=== PATIENT | male | born 1980 | race Caucasian/White ===

== ENCOUNTER 2020-08-11 14:37 | Emergency (ER) | payer OTHER, BC ==
[2020-08-11 14:41] VITALS: RESP 20; TEMP 97.9
[2020-08-11] MEDS ORDERED: Acetaminophen-Codeine 300-30mg TAB PO STA (15:05)
[2020-08-11] MEDS ORDERED: MORPHINE SULFATE 4 MG/ML SYRINGE IM STA (15:05)
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
[2020-08-11] MEDS ORDERED: ACET/COD 300 MG/30 MG STARTER PACK 6 TAB BTL PO STA (16:36)
[2020-08-11 16:58] VITALS: BP 124/88; PULSE 94
== END 2020-08-11 16:57 | disposition home or self-care (01) ==
LOC: EC 14:37
DX: S16.1XXA Strain of muscle, fascia and tendon at neck level, initial encounter (principal); S69.91XA Unspecified injury of right wrist, hand and finger(s), initial encounter; F17.200 Nicotine dependence, unspecified, uncomplicated; M25.531 Pain in right wrist; M25.561 Pain in right knee; V89.2XXA Person injured in unspecified motor-vehicle accident, traffic, initial encounter; Y92.410 Unspecified street and highway as the place of occurrence of the external cause; Y93.I9 Activity, other involving external motion
CPT/HCPCS: 70450; 72125; 99284

== ENCOUNTER 2021-09-05 15:32 | Emergency (ER) | payer OTHER ==
[2021-09-05] MEDS ORDERED: MORPHINE SULFATE 2 MG/ML SYRINGE IM STA (18:09)
[2021-09-05] MEDS ORDERED: methylPREDNISolone SOD SUCCI 125 MG/2 ML VIAL IM ONE (18:09)
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
--- NOTE | 2021-09-05 18:57 | XR ---
EXAMINATION TYPE: XR lumbar spine 2 or 3V DATE OF EXAM: 09/05/2021 COMPARISON: NONE HISTORY: Back pain TECHNIQUE: 3 views FINDINGS: The lumbar vertebrae have normal alignment. Posterior elements are intact. No compression f racture. Sacroiliac joints appear intact. IMPRESSION: Negative lumbar spine exam. No fracture seen.
[2021-09-05] MEDS ORDERED: ACET/COD 300 MG/30 MG STARTER PACK 6 TAB BTL PO STA (19:32)
[2021-09-05 19:47] VITALS: BP 132/78; PULSE 78; RESP 16; TEMP 97.9
== END 2021-09-05 19:44 | disposition home or self-care (01) ==
LOC: EC 15:32
DX: M54.50 Low back pain, unspecified (principal)
CPT/HCPCS: 72100; J2930; J2270

== ENCOUNTER 2021-09-09 15:16 | Emergency (ER) | payer OTHER ==
[2021-09-09 15:31] VITALS: RESP 18; TEMP 98
[2021-09-09] MEDS ORDERED: KETAMINE 10 MG/ML 20 ML VIAL IV ONE (15:55)
[2021-09-09] MEDS ORDERED: SODIUM CHLORIDE 0.9% 1,000 ML IV STA (15:56)
[2021-09-09] MEDS ORDERED: MORPHINE SULFATE 4 MG/ML SYRINGE IM STA (15:59)
--- NOTE | 2021-09-09 15:59 | ED ---
General Adult HPI - General Chief complaint: Back Pain/Injury Stated complaint: Back pain Time Seen by Provider: 09/09/21 15:41 Source: patient Mode of arrival: ambulatory Limitations: no limitations - History of Present Illness Initial comments: Dictation was produced using [employer] dictation software. please excuse any grammatical, word or spelling errors. Chief Complaint: 40-year-old male presents to the emergency department History of Present Illness: 40-year-old male presents emergency department for acute on chronic back pain. Patient states that his symptoms began several days ago. He was seen in the emergency department 4 days ago for the same complaint. Patient states she's been dealing with back issues for several years. States that he feels like he has a knot in his left lower back. States that he feels like there is radiation of paresthesias down the lateral portion of his left lower extremity. He has seen a airborne and air delivery specialist in the past and has had MRIs that showed disc bulge. He does not have a primary care doctor at the moment. Denies any saddle anesthesia or bowel or bladder issues. The ROS documented in this emergency department record has been reviewed and confirmed by me. Those systems with pertinent positive or negative responses have been documented in the HPI. All other systems are other negative and/or noncontributory. PHYSICAL EXAM: General Impression: Alert and oriented x3, not in acute distress HEENT: Normocephalic atraumatic, extra-ocular movements intact, pupils equal and reactive to light bilaterally, mucous membranes moist. Cardiovascular: Heart regular rate and rhythm Chest: Able to complete full sentences, no retractions, no tachypnea Abdomen: abdomen soft, non-tender, non-distended, no organomegaly Musculoskeletal: Pulses present and equal in all extremities, no peripheral edema, bogginess to the soft tissues of the left lower back with reproducible palpatory tenderness Motor: no focal deficits noted Neurological: CN II-XII grossly intact, no focal motor or sensory deficits noted Skin: Intact with no visualized rashes Psych: Normal affect and mood ED course: 40-year-old male presents to the emergency department for acute on chronic back pain. Patient was seen here in emergency department 4 days ago for the same complaint. Vital signs upon arrival are within acceptable limits. Patient has no high-risk features. CT imaging shows no acute processes. Patient is well-appearing at bedside. Patient is a high-risk features. Patient be discharged. - Related Data Home Medications Medication Instructions Recorded Confirmed Acetaminophen Tab [Tylenol Tab] 1,000 mg PO Q6HR PRN 08/11/20 08/11/20 Ibuprofen [Motrin Ib] 800 mg PO Q8H PRN 08/11/20 08/11/20 Previous Rx's Medication Instructions Recorded HYDROcodone/APAP 5-325MG [[place] 1 tab PO Q4HR PRN 3 Days #18 tab 09/05/21 5-325] oxyCODONE HCL/ACETAMINOPHEN 1 tab PO Q6HR PRN 3 Days #12 tab 09/09/21 [Percocet 5-325 mg] Allergies Allergy/AdvReac Type Severity Reaction Status Date / Time Penicillins Allergy Unknown Verified 09/05/21 16:18 Review of Systems ROS Statement: Those systems with pertinent positive or pertinent negative responses have been documented in the HPI. ROS Other: All systems not noted in ROS Statement are negative. Past Medical History Past Medical History: No Reported History History of Any Multi-Drug Resistant Organisms: None Reported Past Surgical History: Orthopedic Surgery Additional Past Surgical History / Comment(s): rt knee Past Psychological History: Anxiety Smoking Status: Current every day smoker Past Alcohol Use History: Rare Past Drug Use History: None Reported General Exam Limitations: no limitations Course Vital Signs 09/09/21 15:29 Temperature 98.0 F Pulse Rate 88 Respiratory 18 Rate Blood Pressure 162/88 O2 Sat by Pulse 98 Oximetry Disposition Clinical Impression: Back pain Disposition: HOME SELF-CARE Condition: Good Instructions (If sedation given, give patient instructions): Acute Low Back Pain (ED) Prescriptions: oxyCODONE HCL/ACETAMINOPHEN [Percocet 5-325 mg] 1 tab PO Q6HR PRN 3 Days #12 tab PRN Reason: Pain Is patient prescribed a controlled substance at d/c from ED?: No Referrals: Rafael Gay DO [Doctor of Osteopathic Medicine] - 1-2 days Jennifer Reyes MD [REFERRING] - 1-2 days Sammy Young MD [REFERRING] - 1-2 days Cody Coleman DO [Doctor of Osteopathic Medicine] - 1-2 days
--- NOTE | 2021-09-09 17:18 | CT ---
EXAMINATION TYPE: CT lumbar spine wo con CT DLP: 1120.6 mGycm, Automated exposure control for dose reduction was used. DATE OF EXAM: 09/09/2021 5:06 PM COMPARISON: Lumbar radiographs 09/05/2021. CLINICAL INDICATION:Male, 40 years old with history of persistent back pain, Chronic low back pain, n o injury. TECHNIQUE: Multiple axial images were obtained from the midportion of T11 through the sacroiliac kvng nts. Soft tissue and bone windows in coronal and sagittal planes were obtained and reviewed. 3-D ref ormats of the bones were created on a separate workstation and submitted for review. FINDINGS: Alignment: There are 5 lumbar type vertebral bodies within normal alignment. Bone: No evidence of fracture is identified. Mild multilevel disc degeneration changes are seen thro ughout the spine. Mild sacroiliac joint osteophyte formation anteriorly. Discs: T12-L1: No spinal canal or neural foraminal stenosis is identified. L1-L2: No spinal canal or neural foraminal stenosis is identified. L2-L3: No spinal canal or neural foraminal stenosis is identified. L3-L4: No spinal canal or neural foraminal stenosis is identified. L4-L5: No spinal canal or neural foraminal stenosis is identified. L5-S1: No spinal canal or neural foraminal stenosis is identified. Other: Nonobstructing subcentimeter renal calculi bilaterally. The appendix is within normal limits. IMPRESSION: 1. No evidence of fracture of the lumbar spine. 2. No evidence for significant spinal canal or neural foraminal narrowing.
[2021-09-09 18:17] VITALS: BP 145/90; PULSE 83
== END 2021-09-09 18:17 | disposition home or self-care (01) ==
LOC: EC 15:16
DX: M54.9 Dorsalgia, unspecified (principal); F17.200 Nicotine dependence, unspecified, uncomplicated; Z88.0 Allergy status to penicillin
CPT/HCPCS: 72131; 99283; 96372; J2270

== ENCOUNTER 2021-09-30 18:20 | Emergency (ER) | payer OTHER ==
[2021-09-30 20:11] VITALS: BP 142/99; PULSE 85; RESP 17; TEMP 98.1
[2021-09-30] MEDS ORDERED: GABAPENTIN 300 MG CAP PO STA (22:02)
--- NOTE | 2021-09-30 22:08 | ED ---
General Adult HPI - General Chief complaint: Back Pain/Injury Stated complaint: Low Back Pain Time Seen by Provider: 09/30/21 21:41 Source: patient, RN notes reviewed, old records reviewed Mode of arrival: ambulatory Limitations: no limitations - History of Present Illness Initial comments: Patient is a 40-year-old male with past medical history remarkable for chronic back pain who presents emergency Department complaining of exacerbation of his chronic back pain. Previously was being treated in a pain clinic. This is stopped, and he was seen previously here for similar complaints. No new symptoms for describes the pain as a shooting sensation from his lower back down bilateral legs, left worse than right. Denies any incontinence. Denies saddle anesthesias. Denies abdominal pain, nausea, vomiting. Denies chest pain, shortness breath. Denies any new injuries. His no other acute complaint at this time. Was started on amitriptyline for the pain without much improvement. He is seeking more relief. Has not yet followed up with account installation specialist. Has not returned to his PCP. - Related Data Home Medications Medication Instructions Recorded Confirmed Acetaminophen Tab [Tylenol Tab] 1,000 mg PO Q6HR PRN 08/11/20 08/11/20 Ibuprofen [Motrin Ib] 800 mg PO Q8H PRN 08/11/20 08/11/20 Previous Rx's Medication Instructions Recorded HYDROcodone/APAP 5-325MG [[place] 1 tab PO Q4HR PRN 3 Days #18 tab 09/05/21 5-325] oxyCODONE HCL/ACETAMINOPHEN 1 tab PO Q6HR PRN 3 Days #12 tab 09/09/21 [Percocet 5-325 mg] Gabapentin [Neurontin] 300 mg PO TID 3 Days #9 cap 09/30/21 Allergies Allergy/AdvReac Type Severity Reaction Status Date / Time Penicillins Allergy Unknown Verified 09/30/21 20:08 Review of Systems ROS Statement: Those systems with pertinent positive or pertinent negative responses have been documented in the HPI. Review of Systems: CONST: Denies fever EYES: Denies blurry vision ENT: Denies nasal congestion C/V: Denies Chest pain RESP: Denies shortness of breath GI: Denies abdominal pain : Denies dysuria SKIN: Denies rash. MSK: Endorses chronic back pain. NEURO: Denies headache ROS Other: All systems not noted in ROS Statement are negative. Past Medical History Past Medical History: No Reported History Additional Past Medical History / Comment(s): back pain History of Any Multi-Drug Resistant Organisms: None Reported Past Surgical History: Orthopedic Surgery Additional Past Surgical History / Comment(s): rt knee Past Psychological History: Anxiety Smoking Status: Current every day smoker Past Alcohol Use History: Rare Past Drug Use History: None Reported General Exam - General Exam Comments Initial Comments: General: Appears in no acute distress. HEAD: Normal with no signs of head trauma. EYES: EOMI ENT: Hearing grossly intact RESPIRATORY: No respiratory distress C/V: Regular rate and rhythm. Peripheral pulses 2+ and intact throughout. ABD: Abdomen is nondistended. EXT: Normal range of motion of all 4 extremities without any obvious deformity. No obvious midline lumbar spine tenderness to palpation. SKIN: No rashes or lesions observed on exposed skin. NEURO: Alert and oriented 4. Patient is able to ambulate. No focal deficits. Limitations: no limitations Course Vital Signs 09/30/21 20:08 Temperature 98.1 F Pulse Rate 85 Respiratory 17 Rate Blood Pressure 142/99 O2 Sat by Pulse 100 Oximetry Medical Decision Making - Medical Decision Making Based on the patient's presentation and physical exam, I'm concerned for his chronic back pain. His no new symptoms. Has not followed up yet with specialist for further management her medications. Is requesting new medications. I did discuss with him I am willing to provide him with a three- day prescription for medications, we agreed on Neurontin. I do not believe that we need any new imaging or laboratory studies. Lumbar spine CT earlier this month showed no acute findings. Patient was in agreement with follow-up. I will provide him with new to contact him for information for a account installation specialist as well as PCP. He was in agreement this plan. He has no red flag symptoms to suggest cauda equina syndrome. Likely experiencing sciatica. I will provide the patient with a prescription for three-day prescription of gabapentin. I instructed the patient to follow up with their PCP in the next 3 days. . I explained that the patient should return to the emergency department if they experience any worsening symptoms. Strict return precautions were discussed with the patient. The patient expressed understanding of these instructions. I answered all questions that the patient had. The patient was discharged home in good condition with their prescriptions and follow up information. Disposition Clinical Impression: Chronic back pain, Lumbar radiculopathy Disposition: HOME SELF-CARE Condition: Good Instructions (If sedation given, give patient instructions): Chronic Back Pain (DC) Prescriptions: Gabapentin [Neurontin] 300 mg PO TID 3 Days #9 cap Is patient prescribed a controlled substance at d/c from ED?: Yes When asked, does pt state using other controlled substances?: No If prescribed controlled substance>3 days was MAPS reviewed?: Prescribed <3 Days If opioid is for acute pain is fill amount 7 days or less?: Yes Referrals: None,Stated [Primary Care Provider] - 1-2 days Olya Ng MD [REFERRING] - 1-2 days Cody Coleman DO [Doctor of Osteopathic Medicine] - 1-2 days Time of Disposition: 22:05
== END 2021-09-30 22:13 | disposition home or self-care (01) ==
LOC: EC 18:20
DX: M54.16 Radiculopathy, lumbar region (principal); F17.200 Nicotine dependence, unspecified, uncomplicated; Z88.0 Allergy status to penicillin
CPT/HCPCS: 99283

== ENCOUNTER 2021-11-13 18:38 | Emergency (ER) | payer OTHER ==
[2021-11-13 18:43] VITALS: BP 126/88; PULSE 93; RESP 18; TEMP 98
--- NOTE | 2021-11-13 19:45 | ED ---
Back Pain HPI - General Chief Complaint: Back Pain/Injury Stated Complaint: Lower back pain/pain in legs Time Seen by Provider: 11/13/21 19:36 Source: patient, RN notes reviewed Limitations: no limitations - History of Present Illness Initial Comments: This is a 40-year-old male who presents in respiratory complaining of chronic low back pain with intermittent radiation to both legs. He describes a pins and needles type sensation to both legs. He denies any symptoms of saddle anesthesia. No bowel or bladder problems. No recent instrumentation. No direct trauma. No IV drug abuse. No immunosuppression. No diabetes. No headache, no fever or chills, no changes in vision or hearing, no sore throat or difficulty with speech, no neck pain, no chest pain or shortness of breath, no abdominal pain, no nausea or vomiting, no changes in urination or bowel movements, no numbness or tingling, no extremity pain, no skin rashes or lesions. Past medical, surgical, social, and family history reviewed. MD Complaint: back pain - Related Data Home Medications Medication Instructions Recorded Confirmed Acetaminophen Tab [Tylenol Tab] 1,000 mg PO Q6HR PRN 08/11/20 08/11/20 Ibuprofen [Motrin Ib] 800 mg PO Q8H PRN 08/11/20 08/11/20 Previous Rx's Medication Instructions Recorded HYDROcodone/APAP 5-325MG [[place] 1 tab PO Q4HR PRN 3 Days #18 tab 09/05/21 5-325] oxyCODONE HCL/ACETAMINOPHEN 1 tab PO Q6HR PRN 3 Days #12 tab 09/09/21 [Percocet 5-325 mg] Gabapentin [Neurontin] 300 mg PO TID 3 Days #9 cap 09/30/21 Cyclobenzaprine [Flexeril] 10 mg PO TID PRN #20 tab 11/13/21 Gabapentin [Neurontin] 300 mg PO TID #9 cap 11/13/21 Naproxen [Naprosyn] 375 mg PO Q12HR PRN #20 tablet 11/13/21 Naproxen [Naprosyn] 375 mg PO Q12HR PRN #20 tablet 11/13/21 Allergies Allergy/AdvReac Type Severity Reaction Status Date / Time Penicillins Allergy Unknown Verified 11/13/21 18:43 Review of Systems ROS Statement: Those systems with pertinent positive or pertinent negative responses have been documented in the HPI. ROS Other: All systems not noted in ROS Statement are negative. Past Medical History Past Medical History: No Reported History Additional Past Medical History / Comment(s): back pain History of Any Multi-Drug Resistant Organisms: None Reported Past Surgical History: Orthopedic Surgery Additional Past Surgical History / Comment(s): rt knee Past Psychological History: Anxiety Smoking Status: Current every day smoker Past Alcohol Use History: Rare Past Drug Use History: None Reported General Exam - General Exam Comments Initial Comments: Patient does not appear to be ill or toxic. Cranial nerves II through XII are grossly intact Limitations: no limitations General appearance: alert, in no apparent distress Head exam: Present: atraumatic, normocephalic, normal inspection Eye exam: Present: normal appearance, PERRL, EOMI. Absent: scleral icterus, conjunctival injection, periorbital swelling ENT exam: Present: normal exam, mucous membranes moist Neck exam: Present: normal inspection. Absent: tenderness, meningismus, lymphadenopathy Respiratory exam: Present: normal lung sounds bilaterally. Absent: respiratory distress, wheezes, rales, rhonchi, stridor Cardiovascular Exam: Present: regular rate, normal rhythm, normal heart sounds. Absent: systolic murmur, diastolic murmur, rubs, gallop, clicks GI/Abdominal exam: Present: soft, normal bowel sounds. Absent: distended, tenderness, guarding, rebound, rigid Extremities exam: Present: normal inspection, full ROM, normal capillary refill. Absent: tenderness, pedal edema, joint swelling, calf tenderness Back exam: Present: normal inspection, full ROM (Essentially full range of motion with some discomfort.), tenderness (Lumbar paraspinal tenderness. No erythema. No break in skin, no rash or lesion), paraspinal tenderness, other (Straight leg raise is negative bilaterally). Absent: CVA tenderness (R), CVA tenderness (L), muscle spasm, vertebral tenderness, rash noted Neurological exam: Present: alert, oriented X3, CN II-XII intact, normal gait, reflexes normal. Absent: abnormal gait, motor sensory deficit Psychiatric exam: Present: normal affect, normal mood Skin exam: Present: warm, dry, intact, normal color. Absent: rash Course Vital Signs 11/13/21 18:39 Temperature 98.0 F Pulse Rate 93 Respiratory 18 Rate Blood Pressure 126/88 O2 Sat by Pulse 100 Oximetry Medical Decision Making - Medical Decision Making -There are no red flags for concerning back pathology. Specifically: -No history of cancer, this is not a mass effect, MRI not indicated. -No anticoagulation, this is not a bleed. -No fevers, no IVDU, this is not an infectious process. -No trauma, no bony pain, x-rays are not indicated. -With a normal neuro exam, and no urinary or bowel retention or incontinence, there is no clinical sign of motor defect or cauda equina - MRI is not indicated at this point. -No pulsating abdominal mass or risk factors for AAA. -Pain is relieved with rest, which is also less concerning. -I do not believe that x-rays or emergent MRI is indicated at this time. -We will treat symptomatically and discharge home with follow up instructions. -Stretching/strengthening exercise given to patient and they will be referred to physical therapy Patient was told to return to the ER for any signs or symptoms worsen. Told to return immediately if any other problems arise. All questions answered. Treatment plan discussed. Patient in agreement Every effort has been made to ensure accuracy of this dictation. However, due to the limitations of electronic medical records and dictation devices, errors in charting still occur. [employer] Dr. Leonard Disposition Clinical Impression: Acute exacerbation of chronic low back pain Disposition: HOME SELF-CARE Condition: Stable Instructions (If sedation given, give patient instructions): Chronic Back Pain (DC) Additional Instructions: Follow-up with your regular physician as directed. Return to the ER immediately if any symptoms worsen, new symptoms arise, or any other problems develop. Prescriptions: Cyclobenzaprine [Flexeril] 10 mg PO TID PRN #20 tab PRN Reason: Spasms Gabapentin 300 mg PO TID 3 Days #9 cap Naproxen [Naprosyn] 375 mg PO Q12HR PRN #20 tablet PRN Reason: Pain Is patient prescribed a controlled substance at d/c from ED?: No [facility] - 11/15/21 Time of Disposition: 19:45
[2021-11-13 20:13] LABS: Appearance,Urine Clear (Clear); Bilirubin,Urine Negative (Negative); Blood,Urine Negative (Negative); Color,Urine Light Yellow; Glucose,Urine (UA) Negative (Negative); Ketones,Urine Negative (Negative); Leukocyte Esterase,Urine Negative (Negative); Nitrite,Urine Negative (Negative); Protein,Urine Negative (Negative); Urobilinogen,Urine <2.0 mg/dL (<2.0)
== END 2021-11-13 20:02 | disposition home or self-care (01) ==
LOC: EC 18:38
DX: G89.29 Other chronic pain (principal); M54.50 Low back pain, unspecified; F17.200 Nicotine dependence, unspecified, uncomplicated; Z88.0 Allergy status to penicillin
CPT/HCPCS: 81003; 99283

== ENCOUNTER 2022-01-03 18:08 | Emergency (ER) | payer OTHER ==
[2022-01-03 18:48] VITALS: BP 143/92; PULSE 108; RESP 18; TEMP 98.2
[2022-01-03] MEDS ORDERED: dexAMETHasone 2 MG TAB PO STA (19:42)
[2022-01-03] MEDS ORDERED: HYDROcodone/APAP 5-325MG 1 EACH TAB PO STA (19:42)
--- NOTE | 2022-01-03 20:15 | CT ---
EXAMINATION TYPE: CT cervical spine wo con DATE OF EXAM: 01/03/2022 COMPARISON: 08/11/2020 HISTORY: neck pain that radiates down the left arm CT DLP: 458.3 mGycm Automated exposure control for dose reduction was used. Images obtained from the skull base to T1 vertebra with no contrast. The cervical vertebra have normal spacing and alignment. Posterior elements are intact. Facet joints appear normal. Skull base is intact. There is normal aeration of the mastoid sinuses. Occipital bone is intact. There is no cervical paraspinal mass. IMPRESSION: Negative CT scan of the cervical spine. No change.
--- NOTE | 2022-01-03 20:29 | XR ---
EXAMINATION TYPE: XR shoulder complete LT DATE OF EXAM: 01/03/2022 COMPARISON: NONE HISTORY: Pain TECHNIQUE: 4 views FINDINGS: There is no evidence of fracture nor dislocation. Shoulder joint spaces are normal. No path ologic calcification. IMPRESSION: Negative left shoulder exam. No fracture
--- NOTE | 2022-01-03 20:30 | XR ---
EXAMINATION TYPE: XR chest 1V DATE OF EXAM: 01/03/2022 COMPARISON: NONE HISTORY: Shoulder pain TECHNIQUE: 2 views FINDINGS: Heart and mediastinum are normal. Lungs are clear. Diaphragm is normal. Bony thorax appears normal. IMPRESSION: Normal chest.
--- NOTE | 2022-01-03 20:38 | ED ---
General Adult HPI - General Chief complaint: Headache Stated complaint: headache, lt arm pain/swelling Time Seen by Provider: 01/03/22 19:30 Source: patient, RN notes reviewed, old records reviewed Mode of arrival: ambulatory - History of Present Illness Initial comments: Patient is a 41-year-old male with past medical history remarkable for chronic back pain who presents emergency department with recurrence of his chronic back pain. Is somewhat different than last time. He is now having neck pain on the left with radiation down his left arm. States it is worse with certain movements of his neck. Denies any trauma. Has not followed up yet with a docket specialist her PCP due to insurance issues. I have seen the patient previously and is still having lower back pain which is unchanged. Describes it as mid spine and the lumbar spine with some radiation down the posterior left leg. No saddle anesthesias. No urinary or bowel incontinence or retention. He is amb ulatory. No changes in this. Presents primarily for the next symptoms at this time. Denies any chest pain, shortness of breath. Denies any abdominal pain, nausea, vomiting. Denies any headaches. Denies any blurry vision. Complains of primarily neck pain with radiation down his left arm. Presents for further evaluation at this time. - Related Data Home Medications Medication Instructions Recorded Confirmed Acetaminophen Tab [Tylenol Tab] 1,000 mg PO Q6HR PRN 08/11/20 08/11/20 Ibuprofen [Motrin Ib] 800 mg PO Q8H PRN 08/11/20 08/11/20 Previous Rx's Medication Instructions Recorded HYDROcodone/APAP 5-325MG [[place] 1 tab PO Q4HR PRN 3 Days #18 tab 09/05/21 5-325] oxyCODONE HCL/ACETAMINOPHEN 1 tab PO Q6HR PRN 3 Days #12 tab 09/09/21 [Percocet 5-325 mg] Gabapentin [Neurontin] 300 mg PO TID 3 Days #9 cap 09/30/21 Cyclobenzaprine [Flexeril] 10 mg PO TID PRN #20 tab 11/13/21 Gabapentin [Neurontin] 300 mg PO TID #9 cap 11/13/21 Naproxen [Naprosyn] 375 mg PO Q12HR PRN #20 tablet 11/13/21 Naproxen [Naprosyn] 375 mg PO Q12HR PRN #20 tablet 11/13/21 Lidocaine 5% Patch [Lidoderm 5% 1 patch TOPICAL DAILY 7 Days #7 01/03/22 Patch] patch methocarbamoL [Robaxin-750] 750 mg PO TID PRN 7 Days #21 tab 01/03/22 Allergies Allergy/AdvReac Type Severity Reaction Status Date / Time Penicillins Allergy Unknown Verified 01/03/22 18:48 Review of Systems ROS Statement: Those systems with pertinent positive or pertinent negative responses have been documented in the HPI. Review of Systems: CONST: Denies fever EYES: Denies blurry vision ENT: Denies nasal congestion C/V: Denies Chest pain RESP: Denies shortness of breath GI: Denies abdominal pain : Denies dysuria SKIN: Denies rash. MSK: Endorses neck pain, back pain NEURO: Denies headache ROS Other: All systems not noted in ROS Statement are negative. Past Medical History Past Medical History: No Reported History Additional Past Medical History / Comment(s): back pain History of Any Multi-Drug Resistant Organisms: None Reported Past Surgical History: Orthopedic Surgery Additional Past Surgical History / Comment(s): rt knee Past Psychological History: Anxiety Smoking Status: Current every day smoker Past Alcohol Use History: Rare Past Drug Use History: None Reported General Exam - General Exam Comments Initial Comments: General: Appears in mild distress. HEAD: Normal with no signs of head trauma. EYES: PERRLA, EOMI, conjunctiva normal, no discharge. ENT: Hearing grossly intact, normal oropharynx. RESPIRATORY: Clear breath sounds bilaterally. No wheezes, rales, or rhonchi. C/V: Regular rate and rhythm. S1 and S2 auscultated, no edema, peripheral pulses 2+ and intact throughout ABD: Abd is soft, nontender, nondistended EXT: Normal range of motion, no obvious deformity. Midline lumbar spine tenderness to palpation which is chronic. Mild midline cervical spine tenderness to palpation as well as left-sided paraspinal muscle tenderness to palpation. SKIN: No rashes or lesions observed on exposed skin. NEURO: Alert and oriented 4. Mild weakness secondary to pain with squeezing of the left hand. Mild sensory deficit in the left hand. Course Vital Signs 01/03/22 18:45 Temperature 98.2 F Pulse Rate 108 H Respiratory 18 Rate Blood Pressure 143/92 O2 Sat by Pulse 98 Oximetry Medical Decision Making - Medical Decision Making Based on the patient's presentation and physical exam, I do believe he is likely experiencing radicular type pain in the left upper extremity likely from possible neck injury. I did have her expectations as he once again I stressed the need for an MRI to further evaluate the patient's spine. He expressed understanding. We will obtain CT imaging of the spine as well as an x-ray of the chest and left shoulder. He was in agreement with this plan. He'll be given analgesia medications as well. Vital signs are within normal limits. Patient has his chronic lower back pain without any concern for cauda equina syndrome at this time. No red flag symptoms. I do not believe required new imaging at this site. Previous lumbar spine imaging was negative. He was in agreement this plan. CT imaging was negative for acute injury. Chest x-ray and shoulder x-ray were negative for acute injury or signs of impingement. Did the patient. I believe it is safe for him to be discharged at this time. I did recommend that he follow-up with a docket specialist for at least PCP so he can obtain an outpatient MRI. He was in agreement this plan. I will provide him with contact info for PCP and he will attempt to reach out on outpatient basis. We'll provide him with Robaxin as well as lidocaine patches for his pain. Patient was in agreement with this plan. I will provide the patient with a prescription for lidocaine patch, Robaxin. I instructed the patient to follow up with their PCP in the next 1-3 days. I provided contact information for follow up with PCP, orthopedics. I explained that the patient should return to the emergency department if they experience any worsening symptoms. Strict return precautions were discussed with the patient. The patient expressed understanding of these instructions. I answered all questions that the patient had. The patient was discharged home in good condition with their prescriptions and follow up information. Disposition Clinical Impression: Cervical radiculopathy, Chronic back pain Disposition: HOME SELF-CARE Condition: Fair Instructions (If sedation given, give patient instructions): Cervical Radiculopathy (ED) Prescriptions: Lidocaine 5% Patch [Lidoderm 5% Patch] 1 patch TOPICAL DAILY 7 Days #7 patch methocarbamoL [Robaxin-750] 750 mg PO TID PRN 7 Days #21 tab PRN Reason: Pain Is patient prescribed a controlled substance at d/c from ED?: No Referrals: None,Stated [Primary Care Provider] - 1-2 days Olya Ng MD [REFERRING] - 1-2 days Jade Paula DO [REFERRING] - 1-2 days Rafael Gay DO [Doctor of Osteopathic Medicine] - 1-2 days Cody Coleman DO [Doctor of Osteopathic Medicine] - 1-2 days Time of Disposition: 20:40
[2022-01-03] MEDS ORDERED: ACET/COD 300 MG/30 MG STARTER PACK 6 TAB BTL PO STA (21:08)
== END 2022-01-03 21:13 | disposition home or self-care (01) ==
LOC: EC 18:08
DX: M54.12 Radiculopathy, cervical region (principal); G89.29 Other chronic pain; M54.50 Low back pain, unspecified; F17.200 Nicotine dependence, unspecified, uncomplicated; Z88.0 Allergy status to penicillin
CPT/HCPCS: 73030; 71045; 72125; 99284; J8540

== ENCOUNTER 2022-06-17 04:12 | Emergency (ER) | payer SELFPAY ==
[2022-06-17 04:18] VITALS: RESP 16; TEMP 98.3
[2022-06-17] MEDS ORDERED: HYDROcodone/APAP 7.5-325MG 1 EACH TAB PO ONE (05:07)
--- NOTE | 2022-06-17 05:32 | XR ---
EXAMINATION TYPE: XR hand complete bilateral DATE OF EXAM: 06/17/2022 COMPARISON: NONE HISTORY: Pain. Trauma. TECHNIQUE: 3 views each hand FINDINGS: The metacarpals are intact. I see no fracture nor dislocation. There are no erosions. No baez bluxation. The fingers are intact. Carpal bones are intact. IMPRESSION: Negative bilateral hand exam. No sign of traumatic injury. IMPRESSION:
--- NOTE | 2022-06-17 05:51 | ED ---
Upper Extremity HPI - General Chief Complaint: Extremity Injury, Upper Stated Complaint: Finger injuries on both hands Time Seen by Provider: 06/17/22 04:30 Source: patient Mode of arrival: ambulatory - History of Present Illness Initial Comments: 41-year-old male presents emergency department reporting bilateral hand pain. States that he was at work when he suffered a crush injury to both hands. He reports to left index pain and right fifth digit pain. He did suffer a small abrasion. He denies any numbness or tingling in his fingers. No wrist pain. No other injuries. No other alleviating, precipitating or modifying factors - Related Data Home Medications Medication Instructions Recorded Confirmed Acetaminophen Tab [Tylenol Tab] 1,000 mg PO Q6HR PRN 08/11/20 08/11/20 Ibuprofen [Motrin Ib] 800 mg PO Q8H PRN 08/11/20 08/11/20 Previous Rx's Medication Instructions Recorded HYDROcodone/APAP 5-325MG [[place] 1 tab PO Q4HR PRN 3 Days #18 tab 09/05/21 5-325] oxyCODONE HCL/ACETAMINOPHEN 1 tab PO Q6HR PRN 3 Days #12 tab 09/09/21 [Percocet 5-325 mg] Gabapentin [Neurontin] 300 mg PO TID 3 Days #9 cap 09/30/21 Cyclobenzaprine [Flexeril] 10 mg PO TID PRN #20 tab 11/13/21 Gabapentin [Neurontin] 300 mg PO TID #9 cap 11/13/21 Naproxen [Naprosyn] 375 mg PO Q12HR PRN #20 tablet 11/13/21 Naproxen [Naprosyn] 375 mg PO Q12HR PRN #20 tablet 11/13/21 Lidocaine 5% Patch [Lidoderm 5% 1 patch TOPICAL DAILY 7 Days #7 01/03/22 Patch] patch methocarbamoL [Robaxin-750] 750 mg PO TID PRN 7 Days #21 tab 01/03/22 HYDROcodone/APAP 5-325MG [[place] 1 tab PO Q6HR PRN 3 Days #12 tab 06/14/22 5-325] Albuterol Inhaler [Ventolin Hfa 1 - 2 puff INHALATION Q4HR PRN #1 06/24/22 Inhaler] each Azithromycin [Zithromax Z Pack] 1 tab PO DIRECTED #6 tab 03/17/23 methylPREDNISolone Dose Pack 4 mg PO DIRECTED #21 packet 06/24/22 [Medrol Dose Pack] Allergies Allergy/AdvReac Type Severity Reaction Status Date / Time Penicillins Allergy Unknown Verified 06/24/22 18:02 Review of Systems ROS Statement: Those systems with pertinent positive or pertinent negative responses have been documented in the HPI. ROS Other: All systems not noted in ROS Statement are negative. Past Medical History Past Medical History: No Reported History Additional Past Medical History / Comment(s): back pain History of Any Multi-Drug Resistant Organisms: None Reported Past Surgical History: Orthopedic Surgery Additional Past Surgical History / Comment(s): rt knee Past Psychological History: Anxiety Smoking Status: Current every day smoker Past Alcohol Use History: Rare Past Drug Use History: None Reported General Exam General appearance: alert, in no apparent distress Head exam: Present: atraumatic, normocephalic, normal inspection Respiratory exam: Present: normal lung sounds bilaterally. Absent: respiratory distress, wheezes, rales, rhonchi, stridor Cardiovascular Exam: Present: regular rate, normal rhythm, normal heart sounds. Absent: systolic murmur, diastolic murmur, rubs, gallop, clicks Extremities exam: Present: other (grease on bilateral hands. few small abrasions not bleeding. no signs of cellulitis. full normal ROM) Course Vital Signs 06/17/22 06/17/22 04:14 06:20 Temperature 98.3 F Pulse Rate 76 71 Respiratory 16 16 Rate Blood Pressure 130/86 119/83 O2 Sat by Pulse 99 97 Oximetry Medical Decision Making - Medical Decision Making Was pt. sent in by a medical professional or institution (, PA, VAULT ATTENDANT, urgent care, hospital, or [place] [facility] facility...) When possible be specific @ -No Did you speak to anyone other than the patient for history (EMS, parent, family, police, friend...)? What history was obtained from this source @ -No Did you review nursing and triage notes (agree or disagree)? Why? @ -I reviewed and agree with nursing and triage notes Were old charts reviewed (outside hosp., previous admission, EMS record, old EKG, old radiological studies, urgent care reports/EKG's, [place] [facility] facility records)? Report findings @ -No old charts were reviewed Differential Diagnosis (chest pain, altered mental status, abdominal pain women, abdominal pain men, vaginal bleeding, weakness, fever, dyspnea, syncope, headache, dizziness, GI bleed, back pain, seizure, CVA, palpatations, mental health, musculoskeletal)? @ -crush injury, abrasion, pain seeking behavior, fracture, strain EKG interpreted by me (3pts min.). @ -No X-rays interpreted by me (1pt min.). @ -Yes CT interpreted by me (1pt min.). @ -Not done U/S interpreted by me (1pt. min.). @ -None done What testing was considered but not performed or refused? (CT, X-rays, U/S, labs)? Why? @ -None What meds were considered but not given or refused? Why? @ -None Did you discuss the management of the patient with other professionals (professionals i.e. , PA, VAULT ATTENDANT, lab, RT, psych nurse, social sciences research scientist, manager switch, teacher, commercial loan officer, manager of case)? Give summary @ -No Was smoking cessation discussed for >3mins.? @ -No Was critical care preformed (if so, how long)? @ -No Were there social determinants of health that impacted care today? How? (Homelessness, low income, unemployed, alcoholism, drug addiction, transportation, low edu. Level, literacy, decrease access to med. care, intermediate, rehab)? @ -No Was there de-escalation of care discussed even if they declined (Discuss DNR or withdrawal of care, Hospice)? DNR status @ -No What co-morbidities impacted this encounter? (DM, HTN, Smoking, COPD, CAD, Cancer, CVA, ARF, Chemo, Hep., AIDS, mental health diagnosis, sleep apnea, morbid obesity)? @ -None Was patient admitted / discharged? Hospital course, mention meds given and route, prescriptions, significant lab abnormalities, going to OR and other pertinent info. Upon arrival patient is placed into room 17. Bilateral hand x-rays are performed. X-rays demonstrate no acute process. He was given a [place] for pain. He is reevaluated and states that he now feels nauseated. He continues to have pain. He was given 4 mg of Zofran. Will be discharged home at this time and instructed follow-up with his doctor. Return for any new or worsening symptoms. Patient agreeable was discharged home stable condition Undiagnosed new problem with uncertain prognosis? @ -Yes Drug Therapy requiring intensive monitoring for toxicity (Heparin, Nitro, Insulin, Cardizem)? @ -No Were any procedures done? @ -No Diagnosis/symptom? acute bilateral hand pain Acute, or Chronic, or Acute on Chronic? @ -acute Uncomplicated (without systemic symptoms) or Complicated (systemic symptoms)? @ -uncomplicated Side effects of treatment? @ -allergic reaction Exacerbation, Progression, or Severe Exacerbation? @ -No Poses a threat to life or bodily function? How? (Chest pain, [place], [place], pneumonia, PE, COPD, DKA, ARF, appy, cholecystitis, CVA, Diverticulitis, Homicidal, Suicidal, threat to staff... and all critical care pts) @ -no Disposition Clinical Impression: Hand pain Disposition: HOME SELF-CARE Condition: Stable Instructions (If sedation given, give patient instructions): Hand Sprain (ED) Is patient prescribed a controlled substance at d/c from ED?: No Referrals: Nonstaff,Physician [Primary Care Provider] - 1-2 days Time of Disposition: 05:50
[2022-06-17] MEDS ORDERED: ONDANSETRON ODT 4 MG TAB PO STA (05:55)
[2022-06-17] MEDS ORDERED: IBUPROFEN 600 MG TAB PO STA (05:55)
[2022-06-17 06:23] VITALS: BP 119/83; PULSE 71
== END 2022-06-17 06:20 | disposition home or self-care (01) ==
LOC: EC 04:12
DX: M79.643 Pain in unspecified hand (principal); F41.9 Anxiety disorder, unspecified; F17.200 Nicotine dependence, unspecified, uncomplicated; Z88.0 Allergy status to penicillin; W23.0XXA Caught, crushed, jammed, or pinched between moving objects, initial encounter
CPT/HCPCS: 99283

== ENCOUNTER 2022-06-24 17:27 | Emergency (ER) | payer OTHER ==
[2022-06-24 18:02] VITALS: RESP 20; TEMP 97.8
[2022-06-24] MEDS ORDERED: DEXAMETHASONE SOD PHOSPHATE 10 MG/ML 1 ML VIAL IM STA (19:31)
--- NOTE | 2022-06-24 19:34 | ED ---
General Adult HPI - General Chief complaint: Upper Respiratory Infection Stated complaint: chest pain Time Seen by Provider: 06/24/22 19:25 Source: patient, RN notes reviewed, old records reviewed Mode of arrival: ambulatory Limitations: no limitations - History of Present Illness Initial comments: 41-year-old male presenting with cough, congestion, myalgia. Symptoms have been present for about one week. Initially began with vomiting and diarrhea. States that his girlfriend currently has similar symptoms. He's had nasal drainage and mild sore throat, cough. He is a current smoker. - Related Data Home Medications Medication Instructions Recorded Confirmed Acetaminophen Tab [Tylenol Tab] 1,000 mg PO Q6HR PRN 08/11/20 08/11/20 Ibuprofen [Motrin Ib] 800 mg PO Q8H PRN 08/11/20 08/11/20 Previous Rx's Medication Instructions Recorded HYDROcodone/APAP 5-325MG [[place] 1 tab PO Q4HR PRN 3 Days #18 tab 09/05/21 5-325] oxyCODONE HCL/ACETAMINOPHEN 1 tab PO Q6HR PRN 3 Days #12 tab 09/09/21 [Percocet 5-325 mg] Gabapentin [Neurontin] 300 mg PO TID 3 Days #9 cap 09/30/21 Cyclobenzaprine [Flexeril] 10 mg PO TID PRN #20 tab 11/13/21 Gabapentin [Neurontin] 300 mg PO TID #9 cap 11/13/21 Naproxen [Naprosyn] 375 mg PO Q12HR PRN #20 tablet 11/13/21 Naproxen [Naprosyn] 375 mg PO Q12HR PRN #20 tablet 11/13/21 Lidocaine 5% Patch [Lidoderm 5% 1 patch TOPICAL DAILY 7 Days #7 01/03/22 Patch] patch methocarbamoL [Robaxin-750] 750 mg PO TID PRN 7 Days #21 tab 01/03/22 HYDROcodone/APAP 5-325MG [[place] 1 tab PO Q6HR PRN 3 Days #12 tab 06/14/22 5-325] Albuterol Inhaler [Ventolin Hfa 1 - 2 puff INHALATION Q4HR PRN #1 06/24/22 Inhaler] each Azithromycin [Zithromax Z Pack] 1 tab PO DIRECTED #6 tab 06/24/22 methylPREDNISolone Dose Pack 4 mg PO DIRECTED #21 packet 06/24/22 [Medrol Dose Pack] Allergies Allergy/AdvReac Type Severity Reaction Status Date / Time Penicillins Allergy Unknown Verified 06/24/22 18:02 Review of Systems ROS Statement: Those systems with pertinent positive or pertinent negative responses have been documented in the HPI. ROS Other: All systems not noted in ROS Statement are negative. Past Medical History Past Medical History: Pneumonia Additional Past Medical History / Comment(s): back pain History of Any Multi-Drug Resistant Organisms: None Reported Past Surgical History: Orthopedic Surgery Additional Past Surgical History / Comment(s): rt knee Past Psychological History: Anxiety Smoking Status: Current every day smoker Past Alcohol Use History: Rare Past Drug Use History: None Reported General Exam Limitations: no limitations General appearance: alert, in no apparent distress Head exam: Present: atraumatic, normocephalic Eye exam: Present: normal appearance, PERRL ENT exam: Absent: normal oropharynx (Pharyngeal erythema) Respiratory exam: Absent: respiratory distress Cardiovascular Exam: Present: regular rate, normal rhythm GI/Abdominal exam: Present: soft. Absent: distended, tenderness Extremities exam: Present: normal inspection, normal capillary refill. Absent: calf tenderness Neurological exam: Present: alert, oriented X3, CN II-XII intact, normal gait. Absent: motor sensory deficit Psychiatric exam: Present: normal affect, normal mood Skin exam: Present: warm, dry, intact. Absent: cyanosis, diaphoretic Course Vital Signs 06/24/22 17:58 Temperature 97.8 F Pulse Rate 79 Respiratory 20 Rate Blood Pressure 159/114 O2 Sat by Pulse 100 Oximetry Medical Decision Making - Medical Decision Making Was pt. sent in by a medical professional or institution (, PA, WAREHOUSE OPERATIONS MANAGER, urgent care, hospital, or detention...) When possible be specific @ -No Did you speak to anyone other than the patient for history (EMS, parent, family, police, friend...)? What history was obtained from this source @ -No Did you review nursing and triage notes (agree or disagree)? Why? @ -I reviewed and agree with nursing and triage notes Were old charts reviewed (outside hosp., previous admission, EMS record, old EKG, old radiological studies, urgent care reports/EKG's, detention records)? Report findings @ -No old charts were reviewed Differential Diagnosis (chest pain, altered mental status, abdominal pain women, abdominal pain men, vaginal bleeding, weakness, fever, dyspnea, syncope, headache, dizziness, GI bleed, back pain, seizure, CVA, palpatations, mental health, musculoskeletal)? @ -Differential Dyspnea: Pneumonia, bronchitis, asthma EKG interpreted by me (3pts min.). @ -None X-rays interpreted by me (1pt min.). @ -Chest x-ray clear, no focal pneumonia, no acute findings, reviewed by myself CT interpreted by me (1pt min.). @ -None done U/S interpreted by me (1pt. min.). @ -None done What testing was considered but not performed or refused? (CT, X-rays, U/S, labs)? Why? @ -None What meds were considered but not given or refused? Why? @ -None Did you discuss the management of the patient with other professionals (professionals i.e. , PA, WAREHOUSE OPERATIONS MANAGER, lab, RT, psych nurse, aids social worker, painting technician, teacher, security public safety officer, case packer)? Give summary @ -No Was smoking cessation discussed for >3mins.? @ -No Was critical care preformed (if so, how long)? @ -No Were there social determinants of health that impacted care today? How? (Homelessness, low income, unemployed, alcoholism, drug addiction, transportation, low edu. Level, literacy, decrease access to med. care, long term, rehab)? @ -No Was there de-escalation of care discussed even if they declined (Discuss DNR or withdrawal of care, Hospice)? DNR status @ -No What co-morbidities impacted this encounter? (DM, HTN, Smoking, COPD, CAD, Cancer, CVA, ARF, Chemo, Hep., AIDS, mental health diagnosis, sleep apnea, morbid obesity)? @ -Smoking Was patient admitted / discharged? Hospital course, mention meds given and route, prescriptions, significant lab abnormalities, going to OR and other pertinent info. @ -41-year-old male with symptoms likely resulting from a viral syndrome, nausea vomiting diarrhea, nasal congestion, cough Undiagnosed new problem with uncertain prognosis? @ -No Drug Therapy requiring intensive monitoring for toxicity (Heparin, Nitro, Insulin, Cardizem)? @ -No Were any procedures done? @ -No Diagnosis/symptom? @ -Bronchitis Acute, or Chronic, or Acute on Chronic? @ -Acute Uncomplicated (without systemic symptoms) or Complicated (systemic symptoms)? @ -default Side effects of treatment? @ -No Exacerbation, Progression, or Severe Exacerbation? @ -No Poses a threat to life or bodily function? How? (Chest pain, [place], [place], pneumonia, PE, COPD, DKA, ARF, appy, cholecystitis, CVA, Diverticulitis, Homicidal, Suicidal, threat to staff... and all critical care pts) @ -No - Lab Data Lab Results 06/24/22 Range/Units 18:02 Influenza Type A (PCR) Not Detected (Not Detectd) Influenza Type B (PCR) Not Detected (Not Detectd) RSV (PCR) Not Detected (Not Detectd) SARS-CoV-2 (PCR) Not Detected (Not Detectd) Disposition Clinical Impression: Bronchitis Disposition: HOME SELF-CARE Condition: Fair Instructions (If sedation given, give patient instructions): Upper Respiratory Infection (ED) Prescriptions: methylPREDNISolone Dose Pack [Medrol Dose Pack] 4 mg PO DIRECTED #21 packet Albuterol Inhaler [Ventolin Hfa Inhaler] 1 - 2 puff INHALATION Q4HR PRN #1 each PRN Reason: Shortness Of Breath Azithromycin [Zithromax Z Pack] 1 tab PO DIRECTED #6 tab Is patient prescribed a controlled substance at d/c from ED?: No Referrals: Nonstaff,Physician [Primary Care Provider] - 1-2 days Time of Disposition: 20:33
--- NOTE | 2022-06-24 19:51 | XR ---
EXAMINATION TYPE: XR chest 2V DATE OF EXAM: 06/24/2022 COMPARISON: 01/03/2022 HISTORY: Pain TECHNIQUE: FINDINGS: Heart and mediastinum are normal. Lungs are clear. Diaphragm is normal. Bony thorax is inta ct. IMPRESSION: Normal chest. No change.
[2022-06-24 20:44] VITALS: BP 136/98; PULSE 68
== END 2022-06-24 20:42 | disposition home or self-care (01) ==
LOC: EC 17:27
DX: J40 Bronchitis, not specified as acute or chronic (principal); F17.200 Nicotine dependence, unspecified, uncomplicated; Z20.822 Contact with and (suspected) exposure to COVID-19; Z88.0 Allergy status to penicillin
CPT/HCPCS: 93005; 87636; 71046; 99283; J1100

== ENCOUNTER 2022-07-03 12:29 | Emergency (ER) | payer OTHER ==
[2022-07-03] MEDS ORDERED: KETOROLAC 15 MG/ML 1 ML VIAL IM STA (12:42)
[2022-07-03] MEDS ORDERED: LIDOCAINE 5% PATCH TOPICAL STA (12:42)
--- NOTE | 2022-07-03 14:04 | ED ---
Back Pain HPI - General Chief Complaint: Back Pain/Injury Stated Complaint: Neck/shoulder pain Time Seen by Provider: 07/03/22 12:37 Source: patient Limitations: no limitations - History of Present Illness Initial Comments: Patient is a 41-year-old male who presents to the emergency department with a chief complaint of neck pain. Patient reports soreness in his neck, left shoul gigi, and lower back after moving furniture this weekend. Patient does not recall any injury while moving the furniture states he had soreness after. Patient has history of chronic back pain which he takes gabapentin for. Patient denies any issues with range of motion. He denies numbness and tingling in the extremities, groin region. Denies loss of bowel or bladder function. Denies leg weakness. Denies fever, chills, chest pain, shortness of breath. - Related Data Home Medications Medication Instructions Recorded Confirmed Acetaminophen Tab [Tylenol Tab] 1,000 mg PO Q6HR PRN 08/11/20 08/11/20 Ibuprofen [Motrin Ib] 800 mg PO Q8H PRN 08/11/20 08/11/20 Previous Rx's Medication Instructions Recorded HYDROcodone/APAP 5-325MG [Tranquillity 1 tab PO Q4HR PRN 3 Days #18 tab 09/05/21 5-325] oxyCODONE HCL/ACETAMINOPHEN 1 tab PO Q6HR PRN 3 Days #12 tab 09/09/21 [Percocet 5-325 mg] Gabapentin [Neurontin] 300 mg PO TID 3 Days #9 cap 09/30/21 Cyclobenzaprine [Flexeril] 10 mg PO TID PRN #20 tab 11/13/21 Gabapentin [Neurontin] 300 mg PO TID #9 cap 11/13/21 Naproxen [Naprosyn] 375 mg PO Q12HR PRN #20 tablet 11/13/21 Naproxen [Naprosyn] 375 mg PO Q12HR PRN #20 tablet 11/13/21 Lidocaine 5% Patch [Lidoderm 5% 1 patch TOPICAL DAILY 7 Days #7 01/03/22 Patch] patch methocarbamoL [Robaxin-750] 750 mg PO TID PRN 7 Days #21 tab 01/03/22 HYDROcodone/APAP 5-325MG [Tranquillity 1 tab PO Q6HR PRN 3 Days #12 tab 06/14/22 5-325] Albuterol Inhaler [Ventolin Hfa 1 - 2 puff INHALATION Q4HR PRN #1 06/24/22 Inhaler] each Azithromycin [Zithromax Z Pack] 1 tab PO DIRECTED #6 tab 06/24/22 methylPREDNISolone Dose Pack 4 mg PO DIRECTED #21 packet 06/24/22 [Medrol Dose Pack] Cyclobenzaprine [Flexeril] 10 mg PO TID PRN #15 tab 07/03/22 Ibuprofen [Motrin] 800 mg PO Q8HR PRN #30 tab 07/03/22 Lidocaine 5% Patch [Lidoderm 5% 1 patch TOPICAL DAILY PRN #7 patch 07/03/22 Patch] Allergies Allergy/AdvReac Type Severity Reaction Status Date / Time Penicillins Allergy Unknown Verified 07/03/22 12:34 Review of Systems ROS Statement: Those systems with pertinent positive or pertinent negative responses have been documented in the HPI. ROS Other: All systems not noted in ROS Statement are negative. Past Medical History Past Medical History: Pneumonia Additional Past Medical History / Comment(s): chronic back pain History of Any Multi-Drug Resistant Organisms: None Reported Past Surgical History: Orthopedic Surgery Additional Past Surgical History / Comment(s): rt knee Past Psychological History: Anxiety Smoking Status: Current every day smoker Past Alcohol Use History: Rare Past Drug Use History: None Reported General Exam Limitations: no limitations General appearance: alert, in no apparent distress Head exam: Present: atraumatic, normocephalic, normal inspection Eye exam: Present: normal appearance, PERRL, EOMI. Absent: scleral icterus, conjunctival injection, periorbital swelling ENT exam: Present: normal exam, mucous membranes moist Neck exam: Present: normal inspection, full ROM. Absent: tenderness, meningismus, lymphadenopathy Respiratory exam: Present: normal lung sounds bilaterally. Absent: respiratory distress, wheezes, rales, rhonchi, stridor Cardiovascular Exam: Present: regular rate, normal rhythm, normal heart sounds. Absent: systolic murmur, diastolic murmur, rubs, gallop, clicks Back exam: Present: normal inspection, full ROM. Absent: muscle spasm, paraspinal tenderness, vertebral tenderness Neurological exam: Present: alert, oriented X3, CN II-XII intact Psychiatric exam: Present: normal affect, normal mood Skin exam: Present: warm, dry, intact, normal color. Absent: rash Course Vital Signs 07/03/22 07/03/22 12:30 14:07 Temperature 98.0 F 98.1 F Pulse Rate 94 68 Respiratory 18 16 Rate Blood Pressure 128/89 136/86 O2 Sat by Pulse 97 99 Oximetry Medical Decision Making - Medical Decision Making Was pt. sent in by a medical professional or institution (, PA, PLASTIC AND RECONSTRUCTIVE SURGEON, urgent care, hospital, or correction...) When possible be specific @ -No Did you speak to anyone other than the patient for history (EMS, parent, family, police, friend...)? What history was obtained from this source @ -No Did you review nursing and triage notes (agree or disagree)? Why? @ -I reviewed and agree with nursing and triage notes Were old charts reviewed (outside hosp., previous admission, EMS record, old EKG, old radiological studies, urgent care reports/EKG's, correction records)? Report findings @ -No old charts were reviewed Differential Diagnosis (chest pain, altered mental status, abdominal pain women, abdominal pain men, vaginal bleeding, weakness, fever, dyspnea, syncope, headache, dizziness, GI bleed, back pain, seizure, CVA, palpatations, mental health)? @ -[Differential Back Pain: Strain, zoster, cauda equina syndrome, epidural abscess, vertebral osteomyelitis, discitis, fracture, subluxation, disc herniation, DJD, spinal stenosis, dissection, AAA, pancreatitis, peptic ulcer disease, pyelonephritis, kidney stone, this is not meant to be an all-inclusive list. EKG interpreted by me (3pts min.). @ -As above X-rays interpreted by me (1pt min.). @ -None done CT interpreted by me (1pt min.). @ -None done U/S interpreted by me (1pt. min.). @ -None done What testing was considered but not performed or refused? (CT, X-rays, U/S, labs)? Why? @ -None What meds were considered but not given or refused? Why? @ -None Did you discuss the management of the patient with other professionals (professionals i.e. , AYDEE, PLASTIC AND RECONSTRUCTIVE SURGEON, lab, RT, psych nurse, social service assistant, rougher for cement, teacher, evp and chief operating officer, transplant case manager)? Give summary @ -No Was smoking cessation discussed for >3mins.? @ -No Was critical care preformed (if so, how long)? @ -No Were there social determinants of health that impacted care today? How? (Homelessness, low income, unemployed, alcoholism, drug addiction, transportation, low edu. Level, literacy, decrease access to med. care, prison, rehab)? @ -No Was there de-escalation of care discussed even if they declined (Discuss DNR or withdrawal of care, Hospice)? DNR status @ -[No] What co-morbidities impacted this encounter? (DM, HTN, Smoking, COPD, CAD, Cancer, CVA, ARF, Chemo, Hep., AIDS, mental health diagnosis, sleep apnea, morbid obesity)? @ -[None] Was patient admitted / discharged? Hospital course, mention meds given and route, prescriptions, significant lab abnormalities, going to OR and other pertinent info. @ -Patient presenting for lower back, neck, left shoulder pain. No symptoms or signs of cauda equina. Physical exam unremarkable. Patient presents with his 1-year-old which he will be driving home with. Shortly after giving Toradol and a lidocaine patch patient asked when I would give him "real pain medication ". Patient requesting narcotics which I declined. Patient very upset stating "I cannot believe I am not receiving narcotics". I did obtain a MAPS score which is 490. Reviewed report. Patient received a norco prescription on 06/28/22. The received a Tranquillity prescription on 06/14/22 by different provider. This is patient's fourth visit this month, 3 of which were for orthopedic complaints. Patient discharged with nonnarcotic pain medication Undiagnosed new problem with uncertain prognosis? @ -[No] Drug Therapy requiring intensive monitoring for toxicity (Heparin, Nitro, Insulin, Cardizem)? @ -[No] Were any procedures done? @ -[No] Diagnosis/symptom? @ -mechanical back pain Acute, or Chronic, or Acute on Chronic? @ -acute Uncomplicated (without systemic symptoms) or Complicated (systemic symptoms)? @ -uncomplicated Side effects of treatment? @ -[No] Exacerbation, Progression, or Severe Exacerbation? @ -[No] Poses a threat to life or bodily function? How? (Chest pain, [place], [place], pneumonia, PE, COPD, DKA, ARF, appy, cholecystitis, CVA, Diverticulitis, Homicidal, Suicidal, threat to staff... and all critical care pts) @ -[No] Dr. Quintero is my attending Disposition Clinical Impression: Mechanical back pain, Neck pain Disposition: HOME SELF-CARE Condition: Good Instructions (If sedation given, give patient instructions): Acute Low Back Pain (ED) Additional Instructions: Take medication as directed. Do not drink alcohol or operate machinery while taking Flexeril as it can make you sleepy. Follow up with PCP in 1-2 days. Prescriptions: Cyclobenzaprine [Flexeril] 10 mg PO TID PRN #15 tab PRN Reason: Muscle Spasm Lidocaine 5% Patch [Lidoderm 5% Patch] 1 patch TOPICAL DAILY PRN #7 patch PRN Reason: Pain Ibuprofen [Motrin] 800 mg PO Q8HR PRN #30 tab PRN Reason: Pain Is patient prescribed a controlled substance at d/c from ED?: No Referrals: Nonstaff,Physician [Primary Care Provider] - 1-2 days
[2022-07-03 14:10] VITALS: BP 136/86; PULSE 68; RESP 16; TEMP 98.1
== END 2022-07-03 14:10 | disposition home or self-care (01) ==
LOC: EC 12:29
DX: M54.9 Dorsalgia, unspecified (principal); M54.2 Cervicalgia; F41.9 Anxiety disorder, unspecified; F17.200 Nicotine dependence, unspecified, uncomplicated; Z88.0 Allergy status to penicillin
CPT/HCPCS: 99283; 96372; J1885

== ENCOUNTER 2022-08-15 01:09 | Emergency (ER) | payer OTHER ==
[2022-08-15 01:17] VITALS: BP 124/85; PULSE 95; RESP 14; TEMP 99.2
[2022-08-15] MEDS ORDERED: MORPHINE SULFATE 4 MG/ML SYRINGE IM STA (01:32)
[2022-08-15] MEDS ORDERED: predniSONE 20 MG TAB PO STA (01:32)
--- NOTE | 2022-08-15 01:33 | ED ---
Back Pain [facility] - General Chief Complaint: Back Pain/Injury Stated Complaint: Left Side Pain Time Seen by Provider: 08/15/22 01:22 Source: patient Limitations: no limitations - History of Present Illness Complaint: back pain, other -: year(s) Similar Symptoms Previously: Yes Place: home Radiation: left leg, other Severity: severe Quality: burning, aching Consistency: constant Improves With: none Worsens With: movement Associated Symptoms: denies other symptoms - Related Data Home Medications Medication Instructions Recorded Confirmed Acetaminophen Tab [Tylenol Tab] 1,000 mg PO Q6HR PRN 08/11/20 08/11/20 Ibuprofen [Motrin Ib] 800 mg PO Q8H PRN 08/11/20 08/11/20 Previous Rx's Medication Instructions Recorded HYDROcodone/APAP 5-325MG [[place] 1 tab PO Q4HR PRN 3 Days #18 tab 09/05/21 5-325] oxyCODONE HCL/ACETAMINOPHEN 1 tab PO Q6HR PRN 3 Days #12 tab 09/09/21 [Percocet 5-325 mg] Gabapentin [Neurontin] 300 mg PO TID 3 Days #9 cap 09/30/21 Cyclobenzaprine [Flexeril] 10 mg PO TID PRN #20 tab 11/13/21 Gabapentin [Neurontin] 300 mg PO TID #9 cap 11/13/21 Naproxen [Naprosyn] 375 mg PO Q12HR PRN #20 tablet 11/13/21 Naproxen [Naprosyn] 375 mg PO Q12HR PRN #20 tablet 11/13/21 Lidocaine 5% Patch [Lidoderm 5% 1 patch TOPICAL DAILY 7 Days #7 01/03/22 Patch] patch methocarbamoL [Robaxin-750] 750 mg PO TID PRN 7 Days #21 tab 01/03/22 HYDROcodone/APAP 5-325MG [[place] 1 tab PO Q6HR PRN 3 Days #12 tab 06/14/22 5-325] Albuterol Inhaler [Ventolin Hfa 1 - 2 puff INHALATION Q4HR PRN #1 06/24/22 Inhaler] each Azithromycin [Zithromax Z Pack] 1 tab PO DIRECTED #6 tab 06/24/22 methylPREDNISolone Dose Pack 4 mg PO DIRECTED #21 packet 06/24/22 [Medrol Dose Pack] Cyclobenzaprine [Flexeril] 10 mg PO TID PRN #15 tab 07/03/22 Ibuprofen [Motrin] 800 mg PO Q8HR PRN #30 tab 07/03/22 Lidocaine 5% Patch [Lidoderm 5% 1 patch TOPICAL DAILY PRN #7 patch 07/03/22 Patch] predniSONE [Deltasone] 20 mg PO BID #8 tab 08/15/22 Cyclobenzaprine [Flexeril] 10 mg PO TID PRN #15 tab 08/17/22 Allergies Allergy/AdvReac Type Severity Reaction Status Date / Time Penicillins Allergy Unknown Verified 08/19/22 11:44 Review of Systems ROS Statement: Those systems with pertinent positive or pertinent negative responses have been documented in the HPI. ROS Other: All systems not noted in ROS Statement are negative. Constitutional: Denies: fever, chills, weakness Respiratory: Denies: cough, dyspnea Cardiovascular: Denies: chest pain, palpitations, edema Gastrointestinal: Denies: abdominal pain, vomiting, diarrhea, constipation Genitourinary: Denies: dysuria, hematuria, testicular pain, testicular mass Musculoskeletal: Reports: as per HPI, back pain Skin: Denies: rash Neurological: Denies: headache, weakness, numbness, paresthesias Past Medical History Past Medical History: Pneumonia Additional Past Medical History / Comment(s): chronic back pain History of Any Multi-Drug Resistant Organisms: None Reported Past Surgical History: Orthopedic Surgery Additional Past Surgical History / Comment(s): rt knee Past Psychological History: Anxiety Smoking Status: Current every day smoker Past Alcohol Use History: Rare Past Drug Use History: None Reported General Exam Limitations: no limitations General appearance: alert, in no apparent distress Head exam: Present: atraumatic, normocephalic Eye exam: Present: normal appearance. Absent: scleral icterus, conjunctival injection Respiratory exam: Present: normal lung sounds bilaterally. Absent: respiratory distress, wheezes, rales, rhonchi, stridor Cardiovascular Exam: Present: regular rate, normal rhythm, normal heart sounds. Absent: systolic murmur, diastolic murmur, rubs, gallop GI/Abdominal exam: Present: soft. Absent: distended, tenderness, rigid, mass, pulsatile mass Extremities exam: Present: normal inspection, normal capillary refill. Absent: pedal edema, calf tenderness Back exam: Present: normal inspection, paraspinal tenderness. Absent: CVA tenderness (R), CVA tenderness (L), vertebral tenderness Neurological exam: Absent: motor sensory deficit Skin exam: Present: warm, dry, intact, normal color. Absent: rash Course Vital Signs 08/15/22 01:14 Temperature 99.2 F Pulse Rate 95 Respiratory 14 Rate Blood Pressure 124/85 O2 Sat by Pulse 99 Oximetry Medical Decision Making - Medical Decision Making Patient is a 41-year-old man here with flareup of his chronic neck and back pain. No concerning symptoms from the history or signs from the physical exam. He did have good response to medication here and will be stable for discharge. We discussed appropriate further care and follow-up. Was pt. sent in by a medical professional or institution (, PA, COVER STITCH MACHINE OPERATOR, urgent care, hospital, or senior living...) When possible be specific @ -[No] Did you speak to anyone other than the patient for history (EMS, parent, family, police, friend...)? What history was obtained from this source @ -[No] Did you review nursing and triage notes (agree or disagree)? Why? @ -[I reviewed and agree with nursing and triage notes] Were old charts reviewed (outside hosp., previous admission, EMS record, old EKG, old radiological studies, urgent care reports/EKG's, senior living records)? Report findings @ -[No old charts were reviewed] Differential Diagnosis (chest pain, altered mental status, abdominal pain women, abdominal pain men, vaginal bleeding, weakness, fever, dyspnea, syncope, headache, dizziness, GI bleed, back pain, seizure, CVA, palpatations, mental health, musculoskeletal)? @ -[Differential Back Pain: Strain, zoster, cauda equina syndrome, epidural abscess, vertebral osteomyelitis, discitis, fracture, subluxation, disc herniation, DJD, spinal stenosis, dissection, AAA, pancreatitis, peptic ulcer disease, pyelonephritis, kidney stone, this is not meant to be an all-inclusive list. EKG interpreted by me (3pts min.). @ -[ X-rays interpreted by me (1pt min.). @ -[None done] CT interpreted by me (1pt min.). @ -[None done] U/S interpreted by me (1pt. min.). @ -[None done] What testing was considered but not performed or refused? (CT, X-rays, U/S, labs)? Why? @ -[None] What meds were considered but not given or refused? Why? @ -[None] Did you discuss the management of the patient with other professionals (professionals i.e. , PA, COVER STITCH MACHINE OPERATOR, lab, RT, psych nurse, forensic social worker, prints and drawings curator, teacher, military source operations officer, onsite case manager)? Give summary @ -[No] Was smoking cessation discussed for >3mins.? @ -[No] Was critical care preformed (if so, how long)? @ -[No] Were there social determinants of health that impacted care today? How? (Homelessness, low income, unemployed, alcoholism, drug addiction, transportation, low edu. Level, literacy, decrease access to med. care, fpc, rehab)? @ -[No] Was there de-escalation of care discussed even if they declined (Discuss DNR or withdrawal of care, Hospice)? DNR status @ -[No] What co-morbidities impacted this encounter? (DM, HTN, Smoking, COPD, CAD, Cancer, CVA, ARF, Chemo, Hep., AIDS, mental health diagnosis, sleep apnea, morbid obesity)? @ -[None] Was patient admitted / discharged? Hospital course, mention meds given and route, prescriptions, significant lab abnormalities, going to OR and other pertinent info. @ -[Discharged Undiagnosed new problem with uncertain prognosis? @ -[No] Drug Therapy requiring intensive monitoring for toxicity (Heparin, Nitro, Insulin, Cardizem)? @ -[No] Were any procedures done? @ -[No] Diagnosis/symptom? @ -[Acute exacerbation of chronic back pain Acute, or Chronic, or Acute on Chronic? @ -[default] Uncomplicated (without systemic symptoms) or Complicated (systemic symptoms)? @ -[Uncomplicated Side effects of treatment? @ -[No] Exacerbation, Progression, or Severe Exacerbation? @ -[No] Poses a threat to life or bodily function? How? (Chest pain, [place], [place], pneumonia, PE, COPD, DKA, ARF, appy, cholecystitis, CVA, Diverticulitis, Homicidal, Suicidal, threat to staff... and all critical care pts) @ -[No] Disposition Clinical Impression: Chronic back pain, Chronic neck pain Disposition: HOME SELF-CARE Condition: Good Instructions (If sedation given, give patient instructions): Chronic Pain (ED) Prescriptions: predniSONE [Deltasone] 20 mg PO BID #8 tab Is patient prescribed a controlled substance at d/c from ED?: No Referrals: None,Stated [Primary Care Provider] - 1-2 days
== END 2022-08-15 02:20 | disposition home or self-care (01) ==
LOC: EC 01:09
DX: G89.29 Other chronic pain (principal); M54.9 Dorsalgia, unspecified; M54.2 Cervicalgia; F41.9 Anxiety disorder, unspecified; F17.200 Nicotine dependence, unspecified, uncomplicated; Z88.0 Allergy status to penicillin; Z79.899 Other long term (current) drug therapy
CPT/HCPCS: 99283; 96372; J2270; J7512

== ENCOUNTER 2022-08-17 19:13 | Emergency (ER) | payer OTHER ==
[2022-08-17 19:50] VITALS: RESP 18; TEMP 97.7
[2022-08-17] MEDS ORDERED: HYDROmorphone 1 MG/ML 1 ML SYRINGE IM STA (20:07)
[2022-08-17] MEDS ORDERED: ACET/COD 300 MG/30 MG STARTER PACK 6 TAB BTL PO STA (20:07)
--- NOTE | 2022-08-17 20:09 | ED ---
Back Pain HPI - General Chief Complaint: Back Pain/Injury Stated Complaint: Left side of body pain Time Seen by Provider: 08/17/22 19:50 Source: patient, RN notes reviewed Limitations: no limitations - History of Present Illness Initial Comments: 41-year-old male presents emergency Department chief complaint of chronic pain. Patient is in the process of following up with pain management. Patient has neck and back pain. There is no acute injuries denies bowel bladder incontinence or retention or focal weakness no other complaints. - Related Data Home Medications Medication Instructions Recorded Confirmed Acetaminophen Tab [Tylenol Tab] 1,000 mg PO Q6HR PRN 08/11/20 08/11/20 Ibuprofen [Motrin Ib] 800 mg PO Q8H PRN 08/11/20 08/11/20 Previous Rx's Medication Instructions Recorded HYDROcodone/APAP 5-325MG [[place] 1 tab PO Q4HR PRN 3 Days #18 tab 09/05/21 5-325] oxyCODONE HCL/ACETAMINOPHEN 1 tab PO Q6HR PRN 3 Days #12 tab 09/09/21 [Percocet 5-325 mg] Gabapentin [Neurontin] 300 mg PO TID 3 Days #9 cap 09/30/21 Cyclobenzaprine [Flexeril] 10 mg PO TID PRN #20 tab 11/13/21 Gabapentin [Neurontin] 300 mg PO TID #9 cap 11/13/21 Naproxen [Naprosyn] 375 mg PO Q12HR PRN #20 tablet 11/13/21 Naproxen [Naprosyn] 375 mg PO Q12HR PRN #20 tablet 11/13/21 Lidocaine 5% Patch [Lidoderm 5% 1 patch TOPICAL DAILY 7 Days #7 01/03/22 Patch] patch methocarbamoL [Robaxin-750] 750 mg PO TID PRN 7 Days #21 tab 01/03/22 HYDROcodone/APAP 5-325MG [[place] 1 tab PO Q6HR PRN 3 Days #12 tab 06/14/22 5-325] Albuterol Inhaler [Ventolin Hfa 1 - 2 puff INHALATION Q4HR PRN #1 06/24/22 Inhaler] each Azithromycin [Zithromax Z Pack] 1 tab PO DIRECTED #6 tab 06/24/22 methylPREDNISolone Dose Pack 4 mg PO DIRECTED #21 packet 06/24/22 [Medrol Dose Pack] Cyclobenzaprine [Flexeril] 10 mg PO TID PRN #15 tab 07/03/22 Ibuprofen [Motrin] 800 mg PO Q8HR PRN #30 tab 07/03/22 Lidocaine 5% Patch [Lidoderm 5% 1 patch TOPICAL DAILY PRN #7 patch 07/03/22 Patch] predniSONE [Deltasone] 20 mg PO BID #8 tab 08/15/22 Cyclobenzaprine [Flexeril] 10 mg PO TID PRN #15 tab 08/17/22 Allergies Allergy/AdvReac Type Severity Reaction Status Date / Time Penicillins Allergy Unknown Verified 08/17/22 19:47 Review of Systems ROS Statement: Those systems with pertinent positive or pertinent negative responses have been documented in the HPI. ROS Other: All systems not noted in ROS Statement are negative. Past Medical History Past Medical History: Pneumonia Additional Past Medical History / Comment(s): chronic back pain History of Any Multi-Drug Resistant Organisms: None Reported Past Surgical History: Orthopedic Surgery Additional Past Surgical History / Comment(s): rt knee Past Psychological History: Anxiety Smoking Status: Current every day smoker Past Alcohol Use History: Rare Past Drug Use History: None Reported General Exam Limitations: no limitations General appearance: alert, in no apparent distress Head exam: Present: atraumatic, normocephalic, normal inspection Eye exam: Present: normal appearance, PERRL, EOMI. Absent: scleral icterus, conjunctival injection, periorbital swelling ENT exam: Present: normal exam, normal oropharynx, mucous membranes moist Neck exam: Present: normal inspection, tenderness, full ROM. Absent: meningismus, lymphadenopathy Respiratory exam: Present: normal lung sounds bilaterally. Absent: respiratory distress, wheezes, rales, rhonchi, stridor Cardiovascular Exam: Present: regular rate, normal rhythm, normal heart sounds. Absent: systolic murmur, diastolic murmur, rubs, gallop, clicks Extremities exam: Present: normal inspection, full ROM, normal capillary refill. Absent: tenderness, pedal edema, joint swelling, calf tenderness Back exam: Present: full ROM, tenderness, paraspinal tenderness Neurological exam: Present: alert, oriented X3, CN II-XII intact Course Vital Signs 08/17/22 08/17/22 19:47 20:27 Temperature 97.7 F Pulse Rate 83 80 Respiratory 18 18 Rate Blood Pressure 141/90 140/85 O2 Sat by Pulse 98 99 Oximetry Medical Decision Making - Medical Decision Making Was pt. sent in by a medical professional or institution (AYDEE Esqueda, ENVIRONMENTAL EDUCATION SPECIALIST, urgent care, hospital, or care home...) When possible be specific @ -No Did you speak to anyone other than the patient for history (EMS, parent, family, police, friend...)? What history was obtained from this source @ -No Did you review nursing and triage notes (agree or disagree)? Why? @ -I reviewed and agree with nursing and triage notes Were old charts reviewed (outside hosp., previous admission, EMS record, old EKG, old radiological studies, urgent care reports/EKG's, care home records)? Report findings @ -Review prior ER records including imaging Differential Diagnosis (chest pain, altered mental status, abdominal pain women, abdominal pain men, vaginal bleeding, weakness, fever, dyspnea, syncope, headache, dizziness, GI bleed, back pain, seizure, CVA, palpatations, mental health, musculoskeletal)? @ -Back pain neck pain chronic pain EKG interpreted by me (3pts min.). @ -As above X-rays interpreted by me (1pt min.). @ -None done CT interpreted by me (1pt min.). @ -None done U/S interpreted by me (1pt. min.). @ -None done What testing was considered but not performed or refused? (CT, X-rays, U/S, labs)? Why? @ -None What meds were considered but not given or refused? Why? @ -None Did you discuss the management of the patient with other professionals (professionals i.e. AYDEE Esqueda, ENVIRONMENTAL EDUCATION SPECIALIST, lab, RT, psych nurse, social science research assistant, mercury purifier, teacher, radiation officer, real estate branch manager)? Give summary @ -No Was smoking cessation discussed for >3mins.? @ -No Was critical care preformed (if so, how long)? @ -No Were there social determinants of health that impacted care today? How? (Homelessness, low income, unemployed, alcoholism, drug addiction, transportation, low edu. Level, literacy, decrease access to med. care, penitentiary, rehab)? @ -No Was there de-escalation of care discussed even if they declined (Discuss DNR or withdrawal of care, Hospice)? DNR status @ -No What co-morbidities impacted this encounter? (DM, HTN, Smoking, COPD, CAD, Cancer, CVA, ARF, Chemo, Hep., AIDS, mental health diagnosis, sleep apnea, morbid obesity)? @ -Chronic pain Was patient admitted / discharged? Hospital course, mention meds given and route, prescriptions, significant lab abnormalities, going to OR and other pertinent info. @ -[Discharge patient has no new symptoms patient throughout intact is advised that needs to follow with PCP for chronic pain management Undiagnosed new problem with uncertain prognosis? @ -No Drug Therapy requiring intensive monitoring for toxicity (Heparin, Nitro, Insulin, Cardizem)? @ -No Were any procedures done? @ -No Diagnosis/symptom? @ -Chronic pain Acute, or Chronic, or Acute on Chronic? @ -Acute on chronic Uncomplicated (without systemic symptoms) or Complicated (systemic symptoms)? @ -Uncomplicated Side effects of treatment? @ -No Exacerbation, Progression, or Severe Exacerbation? @ -No Poses a threat to life or bodily function? How? (Chest pain, [place], [place], pneumonia, PE, COPD, DKA, ARF, appy, cholecystitis, CVA, Diverticulitis, Homicidal, Suicidal, threat to staff... and all critical care pts) @ -No Disposition Clinical Impression: Chronic back pain, Chronic neck pain Disposition: HOME SELF-CARE Condition: Stable Instructions (If sedation given, give patient instructions): Neck Pain (ED) Additional Instructions: Please return to the Emergency Department if symptoms worsen or any other concerns. Prescriptions: Cyclobenzaprine [Flexeril] 10 mg PO TID PRN #15 tab PRN Reason: Muscle Spasm Is patient prescribed a controlled substance at d/c from ED?: No Referrals: Greg Pop MD [REFERRING] - 1-2 days Time of Disposition: 20:09
[2022-08-17 20:28] VITALS: BP 140/85; PULSE 80
== END 2022-08-17 20:28 | disposition home or self-care (01) ==
LOC: EC 19:13
DX: G89.29 Other chronic pain (principal); M54.9 Dorsalgia, unspecified; M54.2 Cervicalgia; F41.9 Anxiety disorder, unspecified; F17.200 Nicotine dependence, unspecified, uncomplicated; Z88.0 Allergy status to penicillin; Z79.899 Other long term (current) drug therapy
CPT/HCPCS: 99283; 96372; J1170

== ENCOUNTER 2022-08-19 11:42 | Emergency (ER) | payer OTHER ==
[2022-08-19] MEDS ORDERED: KETOROLAC 15 MG/ML 1 ML VIAL IM STA (12:39)
[2022-08-19] MEDS ORDERED: LIDOCAINE 5% PATCH TOPICAL SCH (12:45)
--- NOTE | 2022-08-19 14:05 | ED ---
General Adult HPI - General Chief complaint: Back Pain/Injury Stated complaint: lt sided pain Time Seen by Provider: 08/19/22 12:10 Source: patient, RN notes reviewed Mode of arrival: ambulatory Limitations: no limitations - History of Present Illness Initial comments: 41-year-old male with a past medical history significant for chronic neck and back pain presents to the emergency department with a chief complaint of neck pain. Patient has been seen at this facility multiple times this week for school. He scraped his pain chronic in nature. There are no new focal deficits. He denies any recent trauma or injury from the time of last evaluation. He denies any numbness, tingling, weakness in any effects extremities. He denies any dizziness, lightheaded, headache, vision changes, fevers, saddle paresthesia, loss of bowel or bladder function. Patient reports that he has been taking his Tylenol with codeine without symptomatic relief. - Related Data Home Medications Medication Instructions Recorded Confirmed Acetaminophen Tab [Tylenol Tab] 1,000 mg PO Q6HR PRN 08/11/20 08/11/20 Ibuprofen [Motrin Ib] 800 mg PO Q8H PRN 08/11/20 08/11/20 Previous Rx's Medication Instructions Recorded HYDROcodone/APAP 5-325MG [[place] 1 tab PO Q4HR PRN 3 Days #18 tab 09/05/21 5-325] oxyCODONE HCL/ACETAMINOPHEN 1 tab PO Q6HR PRN 3 Days #12 tab 09/09/21 [Percocet 5-325 mg] Gabapentin [Neurontin] 300 mg PO TID 3 Days #9 cap 09/30/21 Cyclobenzaprine [Flexeril] 10 mg PO TID PRN #20 tab 11/13/21 Gabapentin [Neurontin] 300 mg PO TID #9 cap 11/13/21 Naproxen [Naprosyn] 375 mg PO Q12HR PRN #20 tablet 11/13/21 Naproxen [Naprosyn] 375 mg PO Q12HR PRN #20 tablet 11/13/21 Lidocaine 5% Patch [Lidoderm 5% 1 patch TOPICAL DAILY 7 Days #7 01/03/22 Patch] patch methocarbamoL [Robaxin-750] 750 mg PO TID PRN 7 Days #21 tab 01/03/22 HYDROcodone/APAP 5-325MG [[place] 1 tab PO Q6HR PRN 3 Days #12 tab 06/14/22 5-325] Albuterol Inhaler [Ventolin Hfa 1 - 2 puff INHALATION Q4HR PRN #1 06/24/22 Inhaler] each Azithromycin [Zithromax Z Pack] 1 tab PO DIRECTED #6 tab 06/24/22 methylPREDNISolone Dose Pack 4 mg PO DIRECTED #21 packet 06/24/22 [Medrol Dose Pack] Cyclobenzaprine [Flexeril] 10 mg PO TID PRN #15 tab 07/03/22 Ibuprofen [Motrin] 800 mg PO Q8HR PRN #30 tab 07/03/22 Lidocaine 5% Patch [Lidoderm 5% 1 patch TOPICAL DAILY PRN #7 patch 07/03/22 Patch] predniSONE [Deltasone] 20 mg PO BID #8 tab 08/15/22 Cyclobenzaprine [Flexeril] 10 mg PO TID PRN #15 tab 08/17/22 Allergies Allergy/AdvReac Type Severity Reaction Status Date / Time Penicillins Allergy Unknown Verified 08/19/22 11:44 Review of Systems ROS Statement: Those systems with pertinent positive or pertinent negative responses have been documented in the HPI. ROS Other: All systems not noted in ROS Statement are negative. Past Medical History Past Medical History: Pneumonia Additional Past Medical History / Comment(s): chronic back pain History of Any Multi-Drug Resistant Organisms: None Reported Past Surgical History: Orthopedic Surgery Additional Past Surgical History / Comment(s): rt knee Past Psychological History: Anxiety Smoking Status: Current every day smoker Past Alcohol Use History: Rare Past Drug Use History: None Reported General Exam - General Exam Comments Initial Comments: General: Alert, in no acute distress Head: atraumatic normocephalic. Eyes PERRL, EOMI intact, mucous membranes moist Respiratory: Lungs clear to auscultation bilaterally Cardiovascular: Abdominal: Soft without guarding or rebound Extremities: Normal inspection with full range of motion and normal capillary refill Neuroogic: alert and oriented 3, CN II-XII intact, able to ambulate with steady gait Skin: warm dry and intact with normal color Limitations: no limitations Course Vital Signs 08/19/22 08/19/22 11:44 14:09 Temperature 98 F 97.9 F Pulse Rate 85 76 Respiratory 18 16 Rate Blood Pressure 142/98 136/72 O2 Sat by Pulse 100 96 Oximetry Medical Decision Making - Medical Decision Making Was pt. sent in by a medical professional or institution (AYDEE Esqueda, ARCHITECTURAL DRAFTING INSTRUCTOR, urgent care, hospital, or fpc...) When possible be specific @ -[No] Did you speak to anyone other than the patient for history (EMS, parent, family, police, friend...)? What history was obtained from this source @ -[No] Did you review nursing and triage notes (agree or disagree)? Why? @ -[I reviewed and agree with nursing and triage notes] Were old charts reviewed (outside hosp., previous admission, EMS record, old EKG, old radiological studies, urgent care reports/EKG's, fpc records)? Report findings @ -[No old charts were reviewed] Differential Diagnosis (chest pain, altered mental status, abdominal pain women, abdominal pain men, vaginal bleeding, weakness, fever, dyspnea, syncope, headache, dizziness, GI bleed, back pain, seizure, CVA, palpatations, mental health, musculoskeletal)? @ -[not applicable] EKG interpreted by me (3pts min.). @ -[As above] X-rays interpreted by me (1pt min.). @ -[None done] CT interpreted by me (1pt min.). @ -[None done] U/S interpreted by me (1pt. min.). @ -[None done] What testing was considered but not performed or refused? (CT, X-rays, U/S, labs)? Why? @ -[None] What meds were considered but not given or refused? Why? @ -[None] Did you discuss the management of the patient with other professionals (professionals i.e. AYDEE Esqueda, ARCHITECTURAL DRAFTING INSTRUCTOR, lab, RT, psych nurse, social work instructor, mushroom sorter grader, teacher, gunnery/ordnance officer, nurse outreach case manager)? Give summary @ -[No] Was smoking cessation discussed for >3mins.? @ -[No] Was critical care preformed (if so, how long)? @ -[No] Were there social determinants of health that impacted care today? How? (Homelessness, low income, unemployed, alcoholism, drug addiction, t ransportation, low edu. Level, literacy, decrease access to med. care, longterm, rehab)? @ -[No] Was there de-escalation of care discussed even if they declined (Discuss DNR or withdrawal of care, Hospice)? DNR status @ -[No] What co-morbidities impacted this encounter? (DM, HTN, Smoking, COPD, CAD, Cancer, CVA, ARF, Chemo, Hep., AIDS, mental health diagnosis, sleep apnea, morbid obesity)? @ -[None] Was patient admitted / discharged? Hospital course, mention meds given and route, prescriptions, significant lab abnormalities, going to OR and other pertinent info. @ Discharged. This is a 41 year-old male presents the emergency department with back pain. Patient had a thorough history and physical exam performed while in the ED. Physical exam is essentially unremarkable. Heart rate regular rate and rhythm, lung sounds clear to auscultation bilaterally abdomen is soft and nontender. Hip is atraumatic. Patient able to ambulate with a steady gait He describes this pain is chronic in nature and therefore imaging was not ordered. Patient was given Toradol. Patient was offered steroid and Lidoderm patches however he refused. Patient continuously requesting narcotics for his pain. I discussed the results in detail with the patient verbalized understanding. Return precautions were discussed at length. Discharged in stable condition. Case discussed with Dr. Leonard, [facility] who agrees with plan of care Undiagnosed new problem with uncertain prognosis? @ -[No] Drug Therapy requiring intensive monitoring for toxicity (Heparin, Nitro, Insulin, Cardizem)? @ -[No] Were any procedures done? @ -[No] Diagnosis/symptom? @ -back pain - neck pain Acute, or Chronic, or Acute on Chronic? @ -chronic Uncomplicated (without systemic symptoms) or Complicated (systemic symptoms)? @ -uncompliated Side effects of treatment? @ -[No] Exacerbation, Progression, or Severe Exacerbation? @ -[No] Poses a threat to life or bodily function? How? (Chest pain, [place], [place], pneumonia, PE, COPD, DKA, ARF, appy, cholecystitis, CVA, Diverticulitis, Homicidal, Suicidal, threat to staff... and all critical care pts) @ -low likelihood Disposition Clinical Impression: Chronic back pain, Chronic neck pain, Drug-seeking behavior Disposition: HOME SELF-CARE Condition: Stable Additional Instructions: Please return to the nearest emergency department symptoms worsen or persist Is patient prescribed a controlled substance at d/c from ED?: No Referrals: None,Stated [Primary Care Provider] - 1-2 days Sammy Young MD [REFERRING] - 1-2 days Jade Paula DO [REFERRING] - 1-2 days Sandy Lemon MD [STAFF PHYSICIAN] - 1-2 days Time of Disposition: 14:04
[2022-08-19 14:11] VITALS: BP 136/72; PULSE 76; RESP 16; TEMP 97.9
== END 2022-08-19 14:11 | disposition home or self-care (01) ==
LOC: EC 11:42
DX: G89.29 Other chronic pain (principal); M54.9 Dorsalgia, unspecified; M54.2 Cervicalgia; Z76.5 Malingerer [conscious simulation]; F41.9 Anxiety disorder, unspecified; F17.200 Nicotine dependence, unspecified, uncomplicated; Z88.0 Allergy status to penicillin; Z79.899 Other long term (current) drug therapy
CPT/HCPCS: 99283; 96372; J1885

== ENCOUNTER → 2022-08-29 | Outpatient (CLI) | payer OTHER ==
[2022-08-29 11:04] VITALS: BP 146/99; PULSE 92; RESP 18; TEMP 98.4
--- NOTE | 2022-08-29 13:29 | P.PAINPG ---
PQRS Measure Charge Sheet Comment: HISTORY OF PRESENT ILLNESS: 41 yr old male as a referral from Dr Bandar Castañeda presents today w severe and chronic LBP secondary to DDD, spondylosis and facet arthropathy without myelopathy for evaluation. Pt states pain level is provoked at 7 /10 in intensity, constant, localized in the lower lumbar spine, achy in character w shooting pain towards the R thigh and L knee to L ankle. Pain is provoked by lifting, bending. Pain is alleviated by PT in 2019, physician guided exercises 2-3 times a week since 2018, heat, ice, medications (Tyl, Ibu), topical, injections in the past (LESIs x 3 in 2015, BL RFA L3-L5), chiropractic treatments x 3 sessions in 2021, repositioning and rest. PMH: OA, Anxiety PSH: R Knee Surgery SH: Daily tobacco use, No ETOH abuse, No illicit drug use FH: Non contributory All: PCN Meds: See list REVIEW OF ORGAN SYSTEMS: CONSTITUTIONAL: No fevers or chills. No recent weight loss. NEUROLOGICAL: + numbness and tingling along the distal extremities. No seizure disorders or headaches. MUSCULOSKELETAL: + pain PSYCHIATRIC: Denies current depression or suicidal thoughts. Physical Examinations : Constitutional : Cooperative , not in acute distress . Neurologic : Cranial nerve II to XII intact. No focal neur ological deficits. Psychiatric : alert & oriented x 3. Matching mood & appropriate affect. Judgment & insight intact. Musculoskeletal : Cervical Spine Motor strength in the deltoid and biceps: Normal right side. Normal Left side Motor strength biceps and the wrist extensors: Normal right side . Normal left side Motor strength in the triceps muscle: Normal right side. Normal left side Deep tendon reflexes: Normal at the biceps. Normal at Brachioradialis. Normal at triceps Vertebral body tenderness to deep palp ation over Cervical facet loading test: positive bilaterally Spurling test: positive bilaterally Neck distraction test: positive bilaterally Romel sign: positive bilaterally Lumbar spine Motor strength lower extremities ,thigh and legs 5/5 Right side , 5/5 Left side Deep tendon reflexes : Normal Knee Jerk. Normal Ankle Jerk Vertebral body tenderness over L4 Guidry Test positive Lumbar facet Loading Test: positive Right / positive Left Range of motion of the lumbar spine Flexion 30 degrees, extension 10 degrees Straight Leg Raise test: Left/ Right positive at 30 degree Jose test: positive right / positive left. Severe tenderness over the Sacroiliac joint on the Right / Left sides Gaenslen test: positive bilaterally Seated flexion test: positive bilaterally. Sacral spine : Severe tenderness over the Sacroiliac joint: right side / left side Range of motion: Flexion of the lumbar spine <60 degrees Range of motion: Extension of the lumbar spine <20 degrees Gaenslen's Test positive Giuseppe's Test positive Jose test: positive right side / left side Thigh Thrust Test Sacral Thrust Test Imaging: MRI noncontrast of the lumbar spine from 02/16/21 reviewed Assessment/ Plan : Lumbar DDD Recommendation of [place] L4-L5. May need a series of injections for optimal pain r elief. Risks, benefits of procedure discussed and patient verbalized understanding. Admits to aspirin or anti- coagulant use or medical history of diabetes. Protocol for discontinuation/ continuation of medications jennie procedure discussed. Minimal anesthesia provided, if clinically indicated, consisting of Versed and Fentanyl. All questions answered. I have spent greater than 30 minutes on patient care today. Dr Tyson was available by phone for the evaluation of this patient. The time was used to review the medical records including relevant urine studies and Prescription history (MAPs), review of the available imaging, evaluation and examination of the patient, coordination of care with the medical staff and if applicable referring physicians, as well as creation of the medical record PQRS Narrative: Smoking Status Current every day smoker Home Medications: Ambulatory Orders Acetaminophen Tab [Tylenol Tab] 1,000 mg PO Q6HR PRN 08/11/20 Ibuprofen [Motrin Ib] 800 mg PO Q8H PRN 08/11/20 HYDROcodone/APAP 5-325MG [[place] 5-325] 1 tab PO Q4HR PRN 3 Days #18 tab 09/05/21 oxyCODONE HCL/ACETAMINOPHEN [Perc[place]et 5-325 mg] 1 tab PO Q6HR PRN 3 Days #12 tab 09/09/21 Gabapentin [Neurontin] 300 mg PO TID 3 Days #9 cap 09/30/21 Cyclobenzaprine [Flexeril] 10 mg PO TID PRN #20 tab 11/13/21 Gabapentin [Neurontin] 300 mg PO TID #9 cap 11/13/21 Naproxen [Naprosyn] 375 mg PO Q12HR PRN #20 tablet 11/13/21 Naproxen [Naprosyn] 375 mg PO Q12HR PRN #20 tablet 11/13/21 Lidocaine 5% Patch [Lidoderm 5% Patch] 1 patch TOPICAL DAILY 7 Days #7 patch 01/03/22 methocarbamoL [Robaxin-750] 750 mg PO TID PRN 7 Days #21 tab 01/03/22 HYDROcodone/APAP 5-325MG [[place] 5-325] 1 tab PO Q6HR PRN 3 Days #12 tab 06/14/22 Albuterol Inhaler [Ventolin Hfa Inhaler] 1 - 2 puff INHALATION Q4HR PRN #1 each 06/24/22 Azithromycin [Zithromax Z Pack] 1 tab PO DIRECTED #6 tab 06/24/22 methylPREDNISolone Dose Pack [Medrol Dose Pack] 4 mg PO DIRECTED #21 packet 06/24/22 Cyclobenzaprine [Flexeril] 10 mg PO TID PRN #15 tab 07/03/22 Ibuprofen [Motrin] 800 mg PO Q8HR PRN #30 tab 07/03/22 Lidocaine 5% Patch [Lidoderm 5% Patch] 1 patch TOPICAL DAILY PRN #7 patch 07/03/22 predniSONE [Deltasone] 20 mg PO BID #8 tab 08/15/22 Cyclobenzaprine [Flexeril] 10 mg PO TID PRN #15 tab 08/17/22 Controlled Substance Measures - Controlled Substance Measures Is patient prescribed a controlled substance at discharge?: No
== END ==
LOC: PNWHC3 08:27
PROVIDERS: ATTEND Specialist
DX: M51.36 Other intervertebral disc degeneration, lumbar region (principal); M54.2 Cervicalgia; M79.672 Pain in left foot; G89.29 Other chronic pain; M19.90 Unspecified osteoarthritis, unspecified site; F41.9 Anxiety disorder, unspecified; F17.200 Nicotine dependence, unspecified, uncomplicated; Z88.0 Allergy status to penicillin
CPT/HCPCS: 99211

== ENCOUNTER 2022-09-22 11:08 | Day surgery (SDC) | payer OTHER ==
[2022-09-21 08:50] VITALS: BMI 25.8
[2022-09-22 11:31] VITALS: RESP 16; TEMP 97.8
[2022-09-22] MEDS ORDERED: IOPAMIDOL M200 10 ML VIAL ONE (11:42)
[2022-09-22] MEDS ORDERED: methylPREDNISolone ACETATE 80 MG/ML 1 ML VIAL ONE (11:42)
--- NOTE | 2022-09-22 11:49 | P.PCN ---
Date of Procedure: 09/22/22 Procedure(s) Performed: PREOPERATIVE DIAGNOSIS: 1- Lumbar Degenerative Disc Diseases 2-Lumbar spondylosis with Facet arthropathy without myelopathy. POSTOPERATIVE DIAGNOSIS: 1-lumbar degenerative disc disease. 2-lumbar spondylosis with facet arthropathy without myelopathy. PROCEDURE 1. Lumbar epidural steroid injection under fluoroscopic guidance at the L5-S1 level. (Fluoroscopy imaging was available in radiology department) 2. Lumbar epidurogram. ANESTHESIA: Local anesthesia with lidocaine 1% 3 mL only EBL: Minimal PROCEDURE INDICATION: The patient with low back pain and radiculitis symptoms unresponsive to conservative treatment. Fluoroscopy was used to optimize visualization of the needle placement and to maximize safety. PROCEDURE DESCRIPTION / TECHNIQUE: The patient was seen and identified in the preoperative area. Risks, benefits, complications including but not limited to infections ,bleeding ,allergic reaction to the medications ,nerve damage and not complete pain releife , and alternatives were discussed with the patient. The patient agreed to proceed with the procedure and signed the consent. IV was started, and vital signs were stable. Patient was taken to the OR and time out was completed. The patient was placed in the prone position on procedure table and a pillow was placed under the abdomen to reduce lumbar lordosis. The lumbosacral area was prepped and draped in the usual sterile fashion.ere closely monitored during the procedure. Vital signs was monitered during the entire procedure. Using anterior-posterior fluoroscopy, the L5-S1 interlaminar space was identified and the skin over this site was marked and then infiltrated with 1% lidocaine subcutaneously. Subsequently, a 20-gauge Tuohy epidural needle was inserted and advanced toward the epidural space using the ``Loss of resistance technique and guided by AP and lateral fluoroscopy. The correct needle position in the epidural space was verified with the injection of 2 mL of the water soluble contrast dye Isovue 200 contrast and observing an excellent epidurogram with the epidural spread of the dye, after negative aspiration for blood and CSF and in the absence of paresthesias. Again after negative aspiration, a 6 ml mixture containing 80 mg of Depo-medrol ( Preservetive Free ), and 2 ml of preservative free Normal Saline, and 2 ml of preservative free lidocaine 1% solution was injected and a washout of epidurogram was seen. Needle was withdra wn intact, skin was cleansed, and bandages were applied. COMPLICATIONS: None DISPOSITION / PLANS: The patient was placed in a supine position and transferred to the recovery area in a stable condition for observation. There was no evidence of lower extremity motor or sensory deficit after the procedure. Patient was discharged from the recovery room after meeting discharge criteria. Home discharge instructions were given to the patient by the staff. The patient was reexamined prior to discharge. The patient will schedule a follow up in the clinic in 2-4 weeks.
[2022-09-22 12:02] VITALS: BP 129/85; PULSE 80
--- NOTE | 2022-09-22 12:22 | FL ---
EXAMINATION TYPE: FL guided pain mgmt statistic DATE OF EXAM: 09/22/2022 HISTORY: Fluoroscopy time Total dose area product (DAP) in uGy*m?, mGy*cm? (or similar): 0.49816 IMPRESSION: 1. Fluoroscopy time.
== END 2022-09-22 12:07 | disposition home or self-care (01) ==
LOC: ORPAIN 11:08
PROVIDERS: ATTEND Specialist
DX: M51.16 Intervertebral disc disorders with radiculopathy, lumbar region (principal); M47.26 Other spondylosis with radiculopathy, lumbar region; Z88.0 Allergy status to penicillin
CPT/HCPCS: 62323; J1040; Q9966

== ENCOUNTER → 2022-10-19 | Outpatient (CLI) | payer OTHER ==
[2022-10-19 13:41] VITALS: BP 119/82; PULSE 69; RESP 18; TEMP 98.4
--- NOTE | 2022-10-19 14:20 | P.PAINPG ---
PQRS Measure Charge Sheet Comment: 41 yr old male presents today w severe and chronic LBP secondary to DDD, spondylosis and facet arthropathy without myelopathy for evaluation s/p LAMONT L5- S1. Pt states he experienced 85% pain relief x 3 days s/p procedure. Pt states pain level is provoked at 7 /10 in intensity, constant, localized in the R lower lumbar spine, achy in character w shooting pain towards the LLE. Pain is provoked by lifting, bending. Pain is alleviated by PT in 2019, physician guided exercises 2-3 times a week since 2019, heat, ice, medications (Tyl, Ibu), topical, injections in the past (LESIs x 3 in 2015, BL RFA L3-L5), chiropractic treatments x 3 sessions in 2021, repositioning and rest. Interventional procedures include LAMONT L5-S1 x1, BL RFA L3-L5, LESIs x3 (2015) Medications include Tyl, Ibu REVIEW OF ORGAN SYSTEMS: CONSTITUTIONAL: No fevers or chills. No recent weight loss. NEUROLOGICAL: + numbness and tingling along the distal extremities. No seizure disorders or headaches. MUSCULOSKELETAL: + pain PSYCHIATRIC: Denies current depression or suicidal thoughts. Physical Examinations : Constitutional : Cooperative , not in acute distress . Neurologic : Cranial nerve II to XII intact. No focal neurological deficits. Psychiatric : alert & oriented x 3. Matching mood & appropriate affect. Judgment & insight intact. Musculoskeletal : Cervical Spine Motor strength in the deltoid and biceps: Normal right side. Normal Left side Motor strength biceps and the wrist extensors: Normal right side . Normal left side Motor strength in the triceps muscle: Normal right side. Normal left side Deep tendon reflexes: Normal at the biceps. Normal at Brachioradialis. Normal at triceps Vertebral body tenderness to deep palpation over Cervical facet loading test: positive bilaterally Spurling test: positive bilaterally Neck distraction test: positive bilaterally Romel sign: positive bilaterally Lumbar spine Motor strength lower extremities ,thigh and legs 5/5 Right side , 5/5 Left side Deep tendon reflexes : Normal Knee Jerk. Normal Ankle Jerk Vertebral body tenderness Guidry Test positive Lumbar facet Loading Test: positive Right / positive Left over BL L4-L5, L5-S1 Range of motion of the lumbar spine Flexion 30 degrees, extension 10 degrees Straight Leg Raise test: Left/ Right positive at 30 degree Jose test: positive right / positive left. Severe tenderness over the Sacroiliac joint on the Right / Left sides Gaenslen test: positive bilaterally Seated flexion test: positive bilaterally. Sacral spine : Severe tenderness over the Sacroiliac joint: right side / left side Range of motion: Flexion of the lumbar spine <60 degrees Range of motion: Extension of the lumbar spine <20 degrees Gaenslen's Test positive Giuseppe's Test positive Jose test: positive right side / left side Thigh Thrust Test Sacral Thrust Test Imaging: MRI noncontrast of the lumbar spine from 02/16/21 reviewed Assessment/ Plan : Lumbar DDD Recommendation of BL MBB L4-L5, L5-S1 #1. May need a series of injections, up until RFA, for optimal pain relief. Risks, benefits of procedure discussed and patient verbalized understanding. Admits to aspirin or anti- coagulant use or medical history of diabetes. Protocol for discontinuation/ continuation of medications jennie procedure discussed. Minimal anesthesia provided, if clinically indicated, consisting of Versed and Fentanyl. All questions answered. I have spent greater than 30 minutes on patient care today. Dr Tyson was available by phone for the evaluation of this patient. The time was used to review the medical records including relevant urine studies and Prescription history (MAPs), review of the available imaging, evaluation and examination of the patient, coordination of care with the medical staff and if applicable referring physicians, as well as creation of the medical record PQRS Narrative: Smoking Status Current every day smoker Hx Alcohol Use (MH) No Home Medications: Ambulatory Orders Ibuprofen [Motrin Ib] 800 mg PO Q8H PRN 08/11/20 Controlled Substance Measures - Controlled Substance Measures Is patient prescribed a controlled substance at discharge?: No
== END ==
LOC: PNWHC3 08:15
PROVIDERS: ATTEND Specialist
DX: M51.37 Other intervertebral disc degeneration, lumbosacral region (principal); G89.29 Other chronic pain; M47.817 Spondylosis without myelopathy or radiculopathy, lumbosacral region; F17.200 Nicotine dependence, unspecified, uncomplicated; Z88.0 Allergy status to penicillin
CPT/HCPCS: 99211

== ENCOUNTER 2022-10-24 19:43 | Emergency (ER) | payer OTHER ==
[2022-10-24 19:51] VITALS: BP 137/90
[2022-10-24] MEDS ORDERED: DEXAMETHASONE SOD PHOSPHATE 10 MG/ML 1 ML VIAL IM STA (21:23)
[2022-10-24] MEDS ORDERED: KETOROLAC 15 MG/ML 1 ML VIAL IM STA (21:23)
[2022-10-24] MEDS ORDERED: ORPHENADRINE 30 MG/ML 2 ML VIAL IM STA (21:23)
[2022-10-24] MEDS ORDERED: LIDOCAINE 5% PATCH TOPICAL SCH (21:30)
[2022-10-24] MEDS ORDERED: HYDROmorphone 1 MG/ML 1 ML SYRINGE IM STA (22:39)
--- NOTE | 2022-10-24 22:40 | ED ---
Extremity Problem HPI - General Chief complaint: Extremity Problem,Nontraumatic Stated complaint: L Sided Pain Time Seen by Provider: 10/24/22 21:09 Source: patient Mode of arrival: ambulatory Limitations: no limitations - History of Present Illness Initial comments: 41-year-old male presenting with chief complaint of chronic back pain. Patient denies any new injury or trauma, however he states that today at work his pain was elevated. States that he has tingling and burning pain that radiates down the left leg and the left arm, this is not new. No loss of bowel or bladder control or saddle paresthesia. No fevers or chills. No chest pain or difficulty breathing. No abdominal pain, nausea, vomiting, dysuria, hematuria. - Related Data Home Medications Medication Instructions Recorded Confirmed Ibuprofen [Motrin Ib] 800 mg PO Q8H PRN 08/11/20 10/19/22 Allergies Allergy/AdvReac Type Severity Reaction Status Date / Time Penicillins Allergy Unknown Verified 10/24/22 19:51 Review of Systems ROS Statement: Those systems with pertinent positive or pertinent negative responses have been documented in the HPI. ROS Other: All systems not noted in ROS Statement are negative. Past Medical History Past Medical History: Pneumonia Additional Past Medical History / Comment(s): chronic back pain History of Any Multi-Drug Resistant Organisms: None Reported Past Surgical History: Orthopedic Surgery Additional Past Surgical History / Comment(s): rt knee past pain procedures 7 years ago Past Anesthesia/Blood Transfusion Reactions: No Reported Reaction Past Psychological History: Anxiety Smoking Status: Current every day smoker Past Alcohol Use History: Rare Past Drug Use History: None Reported General Exam Limitations: no limitations General appearance: alert, in no apparent distress Head exam: Present: atraumatic, normocephalic, normal inspection Eye exam: Present: normal appearance Neck exam: Present: normal inspection, full ROM Respiratory exam: Present: normal lung sounds bilaterally. Absent: respiratory distress, wheezes, rales, rhonchi, stridor Cardiovascular Exam: Present: regular rate, normal rhythm, normal heart sounds. Absent: systolic murmur, diastolic murmur, rubs, gallop, clicks Back exam: Present: normal inspection Neurological exam: Present: alert, oriented X3, CN II-XII intact Psychiatric exam: Present: normal affect, normal mood Skin exam: Present: warm, dry, intact, normal color. Absent: rash Course Vital Signs 10/24/22 10/24/22 19:45 23:17 Temperature 98.0 F 98.6 F Pulse Rate 89 69 Respiratory 18 16 Rate Blood Pressure 137/90 137/90 O2 Sat by Pulse 100 99 Oximetry Medical Decision Making - Medical Decision Making Was pt. sent in by a medical professional or institution (, [facility], PHOTO TE[employer], urgent care, hospital, or half-way...) When possible be specific @ -No Did you speak to anyone other than the patient for history (EMS, parent, family, police, friend...)? What history was obtained from this source @ -No Did you review nursing and triage notes (agree or disagree)? Why? @ -I reviewed and agree with nursing and triage notes Were old charts reviewed (outside hosp., previous admission, EMS record, old EKG, old radiological studies, urgent care reports/EKG's, half-way records)? Report findings @ -No old charts were reviewed Differential Diagnosis (chest pain, altered mental status, abdominal pain women, abdominal pain men, vaginal bleeding, weakness, fever, dyspnea, syncope, headache, dizziness, GI bleed, back pain, seizure, CVA, palpatations, mental health, musculoskeletal)? @ -MDM Differential Back Pain: Strain, zoster, cauda equina syndrome, epidural abscess, vertebral osteomyelitis, discitis, fracture, subluxation, disc herniation, DJD, spinal stenosis, dissection, AAA, pancreatitis, peptic ulcer disease, pyelonephritis, kidney stone this is not meant to be an all-inclusive list. EKG interpreted by me (3pts min.). @ -As above X-rays interpreted by me (1pt min.). @ -None done CT interpreted by me (1pt min.). @ -None done U/S interpreted by me (1pt. min.). @ -None done What testing was considered but not performed or refused? (CT, X-rays, U/S, labs)? Why? @ -None What meds were considered but not given or refused? Why? @ -None Did you discuss the management of the patient with other professionals (sunday galaviz i.e. [facility] Esqueda, PH[employer] TE[employer], lab, RT, psych nurse, community mental health social worker, radiological technician, teacher, chief accounting officer, supervisor case loading)? Give summary @ -No Was smoking cessation discussed for >3mins.? @ -No Was critical care preformed (if so, how long)? @ -No Were there social determinants of health that impacted care today? How? (Homelessness, low income, unemployed, alcoholism, drug addiction, transportation, low edu. Level, literacy, decrease access to med. care, long term, rehab)? @ -No Was there de-escalation of care discussed even if they declined (Discuss DNR or withdrawal of care, Hospice)? DNR status @ -No What co-morbidities impacted this encounter? (DM, HTN, Smoking, COPD, CAD, Cancer, CVA, ARF, Chemo, Hep., AIDS, mental health diagnosis, sleep apnea, morbid obesity)? @ -None Was patient admitted / discharged? Hospital course, mention meds given and route, prescriptions, significant lab abnormalities, going to OR and other pertinent info. @ -41-year-old male presenting with chief complaint of chronic back pain. No new injury. No red flag symptoms. Physical examination is WNL. 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 Follow-up with PCP. Report back to ER with any new or worsening symptoms. Discussed return parameters and answered all questions. Patient conveyed verbal understanding and agreed to the plan. I discussed this case in detail with my attending Dr. Davis Undiagnosed new problem with uncertain prognosis? @ -No Drug Therapy requiring intensive monitoring for toxicity (Heparin, Nitro, Insulin, Cardizem)? @ -No Were any procedures done? @ -No Diagnosis/symptom? @ -Chronic back pain Acute, or Chronic, or Acute on Chronic? @ -Acute on chronic Uncomplicated (without systemic symptoms) or Complicated (systemic symptoms)? @ -Uncomplicated Side effects of treatment? @ -No Exacerbation, Progression, or Severe Exacerbation? @ -No Poses a threat to life or bodily function? How? (Chest pain, [place], AR, pneumonia, PE, COPD, DKA, ARF, appy, cholecystitis, CVA, Diverticulitis, Homicidal, Suicidal, threat to staff... and all critical care pts) @ -No Disposition Clinical Impression: Chronic back pain Disposition: HOME SELF-CARE Condition: Good Instructions (If sedation given, give patient instructions): Chronic Back Pain (DC) Additional Instructions: Follow-up with PCP in pain management. Report back to ER with any new or worsen ing symptoms. Is patient prescribed a controlled substance at d/c from ED?: No Referrals: Soheila Santacruz DO [Primary Care Provider] - 1-2 days Time of Disposition: 22:40
[2022-10-24 23:18] VITALS: PULSE 69; RESP 16; TEMP 98.6
== END 2022-10-24 23:18 | disposition home or self-care (01) ==
LOC: EC 19:43
DX: G89.29 Other chronic pain (principal); M54.9 Dorsalgia, unspecified; F17.200 Nicotine dependence, unspecified, uncomplicated; Z86.59 Personal history of other mental and behavioral disorders; Z88.0 Allergy status to penicillin
CPT/HCPCS: 99283; 96372 ×4; J1100; J2360; J1170; J1885

== ENCOUNTER 2022-10-28 08:46 | Day surgery (SDC) | payer OTHER ==
[2022-10-26 11:02] VITALS: BMI 26.5
[~2022-10-28 08:46] MED LIST: LACTATED RINGERS 1,000 ML IV SCH; LIDOCAINE 1% (10MG/ML) FOR IV START INTRADERMA PRN
[2022-10-28 09:13] VITALS: RESP 16; TEMP 97.2
[2022-10-28] MEDS ORDERED: ROPIVACAINE 5 MG/ML 20 ML AMPULE ONE (10:02)
[2022-10-28] MEDS ORDERED: MIDAZOLAM 2 MG/2 ML VIAL ONE (10:02)
[2022-10-28] MEDS ORDERED: methylPREDNISolone ACETATE 40 MG/ML 1 ML VIAL ONE (10:02)
[2022-10-28] MEDS ORDERED: fentaNYL (PF) 50 MCG/ML 2 ML AMP ONE (10:02)
--- NOTE | 2022-10-28 10:20 | P.PCN ---
Date of Procedure: 10/28/22 Procedure(s) Performed: PREOPERATIVE DIAGNOSIS : 1- Lumbar spondylosis with Facet Arthropathy without myelopathy . 2- Lumber degenerative disc disease POSTOPERATIVE DIAGNOSIS: 1- Lumbar spondylosis with Facet Arthropathy without myelopathy . 2- Lumber degenerative disc disease PROCEDURE: Diagnostic bilateral L3 , L4 , and L5 medial branch block under fluoroscopy guidance(fluoroscopy images available in the radiology Department ) ( To target the facet joint between Bilateral L4- 5 , and L5-S1 )# 1st ANESTHESIA:, Monitored anesthesia care as per anesthesia department. EBL: Minimal COMPLICATION: None PROCEDURE INDICATION: Chronic low back pain secondary to Facet arthropathy unresponsive to conservative treatment. PROCEDURE DESCRIPTION: the patient was seen and identified in the preop holding area , risks and benefits and possible complications of the procedure and alternative were discussed with the patient, and the patient agreed to proceed with the procedure and signed the consent and vital signs monitored during the procedure and fluoroscopy was used to maximize the benefit and accuracy of the needle placement, and sedation was given to decrease patient a nxiety, patient was taken to the procedure room and placed in prone position vital signs monitored in the back prepped with chlorhexidine X3 then under strict sterile technique using a right oblique fluoroscopy ,the junction of the transverse process and the superior articulating process of the right L3 , L4 , and L5 vertebra which corresponding to the fluoroscopy image of the eye of the Salvador dog on the block side for the medial branches and subsequently , after local infiltration of skin and subcu tissuies with Ropivacaine 0.5 % , one mL at each level ,then 22-gauge Quincke-type needles , 3 needle was used , each one of them placed at the junction of the base of the transverse process and the superior articular process at the appropriate level, and the needle was advanced until the periosteum contacted, needle placement confirmed with AP oblique and lateral view and after appropriate needle placement confirmed, and after negative aspiration for heme and CSF and there was no paresthesia 1-1/2 mL of Ropivacaine 0.5% mixed with 20 mg Depo-Medrol , then half mL injected at each level after negative aspiration the needle subsequently removed and the same procedure repeated for the left side at left side at L3 , L4 and L5 levels. At the end of the procedure and the needles removed and a bandage applied after the skin was cleaned the cleaning solution patient taken to recovery room in stable condition and monitors in the recovery room for 20-30 minutes and discharged home in stable condition after discharge criteria met and patient will follow up with the pain clinic in 2-4 weeks
[2022-10-28] MEDS ORDERED: IV FLUID CONTINUATION 700 ML IV ONE (10:22)
[2022-10-28 10:38] VITALS: BP 121/77; PULSE 55
--- NOTE | 2022-10-28 10:45 | FL ---
EXAMINATION TYPE: FL guided pain mgmt statistic DATE OF EXAM: 10/28/2022 HISTORY: Fluoroscopy time Total dose area product (DAP) in uGy*m?, mGy*cm? (or similar): 0.63066 IMPRESSION: 1. Fluoroscopy time.
== END 2022-10-28 10:53 | disposition home or self-care (01) ==
LOC: ORPAIN 08:46
PROVIDERS: ATTEND Specialist
DX: M51.36 Other intervertebral disc degeneration, lumbar region (principal); M47.816 Spondylosis without myelopathy or radiculopathy, lumbar region; G89.29 Other chronic pain; Z88.0 Allergy status to penicillin; Z79.899 Other long term (current) drug therapy
CPT/HCPCS: 64493; 64494 ×2; J2250; J1030; J3010; J2795

== ENCOUNTER 2022-11-05 21:16 | Emergency (ER) | payer OTHER ==
[2022-11-05 21:29] VITALS: TEMP 98.9
[2022-11-06] MEDS ORDERED: ACETAMINOPHEN TAB 500 MG TAB PO STA (00:02)
[2022-11-06] MEDS ORDERED: ETODOLAC 400 MG TAB PO STA (00:02)
[2022-11-06] MEDS ORDERED: LIDOCAINE 5% PATCH TOPICAL STA (00:02)
[2022-11-06] MEDS ORDERED: HYDROmorphone 1 MG/ML 1 ML SYRINGE IM STA (00:02)
[2022-11-06] MEDS ORDERED: dexAMETHasone 2 MG TAB PO STA (00:03)
--- NOTE | 2022-11-06 00:04 | ED ---
Back Pain HPI - General Source: patient, RN notes reviewed, old records reviewed Limitations: no limitations - History of Present Illness MD Complaint: back pain, back injury -: year(s) Similar Symptoms Previously: Yes Place: home Radiation: none Severity: severe Severity scale (1-10): 10 Quality: sharp Consistency: constant Improves With: none Context: while lifting, turning/twisting Associated Symptoms: denies other symptoms Treatments Prior to Arrival: other (0) - General Chief Complaint: Back Pain/Injury Stated Complaint: Back pain Time Seen by Provider: 11/05/22 23:09 - History of Present Illness Initial Comments: This is a 41-year-old male with history of back pain severe. Worse with ambulation worse with movement. Patient states he's having difficulty walking and the pain is worse over the last few days thinks he may have had injury but no specific new trauma. No loss of bowel or bladder patient's able to walk but does have severe pain with ambulation. Patient is not taking pain medication at home it patient is no medical history takes no medications no prior surgeries (Demian Davis) - Related Data Home Medications Medication Instructions Recorded Confirmed Ibuprofen [Motrin Ib] 200 mg PO DIRECTED PRN 10/26/22 10/28/22 Previous Rx's Medication Instructions Recorded Cyclobenzaprine [Flexeril] 5 mg PO TID PRN #15 tablet 11/07/22 Lidocaine 5% Patch [Lidoderm 5% 1 patch TOPICAL DAILY PRN #7 patch 11/07/22 Patch] HYDROcodone/APAP 10-325MG [Scribner 1 tab PO Q4HR PRN 3 Days #15 tab 11/10/22 10-325] HYDROcodone/APAP 10-325MG [Scribner 1 tab PO Q4HR PRN 3 Days #15 tab 11/14/22 10-325] Allergies Allergy/AdvReac Type Severity Reaction Status Date / Time Penicillins Allergy Unknown Verified 11/09/22 00:30 Review of Systems ROS Other: All systems not noted in ROS Statement are negative. ROS Statement: Those systems with pertinent positive or pertinent negative responses have been documented in the HPI. Past Medical History Past Medical History: Pneumonia Additional Past Medical History / Comment(s): chronic back pain History of Any Multi-Drug Resistant Organisms: None Reported Past Surgical History: Orthopedic Surgery Additional Past Surgical History / Comment(s): RT KNEE SURG. PAIN CLINIC PROC. Past Anesthesia/Blood Transfusion Reactions: No Reported Reaction Past Psychological History: Anxiety Smoking Status: Current every day smoker Past Alcohol Use History: Rare Past Drug Use History: None Reported General Exam Limitations: no limitations General appearance: alert, in no apparent distress, anxious Head exam: Present: atraumatic, normocephalic, normal inspection Eye exam: Present: normal appearance, PERRL, EOMI. Absent: scleral icterus, conjunctival injection, periorbital swelling ENT exam: Present: normal exam, mucous membranes moist Neck exam: Present: normal inspection. Absent: tenderness, meningismus, lymphadenopathy Respiratory exam: Present: normal lung sounds bilaterally. Absent: respiratory distress, wheezes, rales, rhonchi, stridor Cardiovascular Exam: Present: regular rate, normal rhythm, normal heart sounds. Absent: systolic murmur, diastolic murmur, rubs, gallop, clicks GI/Abdominal exam: Present: soft, normal bowel sounds. Absent: distended, tenderness, guarding, rebound, rigid Extremities exam: Present: normal inspection, full ROM, normal capillary refill. Absent: tenderness, pedal edema, joint swelling, calf tenderness Back exam: Present: normal inspection Neurological exam: Present: alert, oriented X3, CN II-XII intact Psychiatric exam: Present: normal affect, normal mood Skin exam: Present: warm, dry, intact, normal color. Absent: rash Course Vital Signs 11/05/22 11/06/22 21:25 01:06 Temperature 98.9 F Pulse Rate 77 63 Respiratory 18 16 Rate Blood Pressure 133/84 136/89 O2 Sat by Pulse 99 98 Oximetry - Reevaluation(s) Reevaluation #4: Was pt. sent in by a medical professional or institution (, PA, WORK OVER RIG OPERATOR, urgent care, hospital, or jail...) When possible be specific @ -no Did you speak to anyone other than the patient for history (EMS, parent, family, police, friend...)? What history was obtained from this source @ -no Did you review nursing and triage notes (agree or disagree)? Why? @ -agree Are old charts reviewed (outside hosp., previous admission, EMS record, old EKG, old radiological studies, urgent care reports/EKG's, jail records)? Report findings @ -yes Differential Diagnosis (chest pain, altered mental status, abdominal pain women, abdominal pain men, vaginal bleeding, weakness, fever, dyspnea, syncope, headache, dizziness, GI bleed, back pain, seizure, CVA, palpatations, mental health, musculoskeletal)? @ -prior EKG interpreted by me (3pts min.). @ -no X-rays interpreted by me (1pt min.). @ -no CT interpreted by me (1pt min.). @ -no U/S interpreted by me (1pt. min.). @ -no What testing was considered but not performed or refused? (CT, X-rays, U/S, labs)? Why? @ -none What meds were considered but not given or refused? Why? @ -none Did you discuss the management of the patient with other professionals (prof fermin i.e. , PA, WORK OVER RIG OPERATOR, lab, RT, psych nurse, director social, senior search marketing analyst, teacher, dog license officer supervisor, patient case coordinator)? Give summary @ -no Was smoking cessation discussed for >3mins.? @ -no Was critical care preformed (if so, how long)? @ -no Were there social determinants of health that impacted care today? How? (Homelessness, low income, unemployed, alcoholism, drug addiction, transportation, low edu. Level, literacy, decrease access to med. care, assisted, rehab)? @ -none Was there de-escalation of care discussed even if they declined (Discuss DNR or withdrawal of care, Hospice)? DNR status @ -no What co-morbidities impacted this encounter? (DM, HTN, Smoking, COPD, CAD, Cancer, CVA, ARF, Chemo, Hep., AIDS, mental health diagnosis, sleep apnea, morbid obesity)? @ -none Was patient admitted / discharged? Hospital course, mention meds given and route, prescriptions, significant lab abnormalities, going to OR and other pertinent info. @ - 41 male to the emergency department for evaluation. Patient presents today for acute on chronic back pain. The symptoms are improved, resolved here in the area is able to ambulate with no neurological findings. Patient can be discharged home DIscharged Undiagnosed new problem with uncertain prognosis? @ -no Drug Therapy requiring intensive monitoring for toxicity (Heparin, Nitro, Insulin, Cardizem)? @ -no Were any procedures done? @ -no Diagnosis/symptom? @ -Chronic Back Pain Acute, or Chronic, or Acute on Chronic? @ -Acute Uncomplicated (without systemic symptoms) or Complicated (systemic symptoms)? @ -Complicated Side effects of treatment? @ -no Exacerbation, Progression, or Severe Exacerbation? @ -exacerbation Poses a threat to life or bodily function? How? (Chest pain, [place], [place], pneumonia, PE, COPD, DKA, ARF, appy, cholecystitis, CVA, Diverticulitis, Homicidal, Suicidal, threat to staff... and all critical care pts) @ -no (Demian Davis) Medical Decision Making - Medical Decision Making 41 male to the emergency department for evaluation. Patient presents today for acute on chronic back pain. The symptoms are improved, resolved here in the area is able to ambulate with no neurological findings. Patient can be discharged home (Demian Davis) Disposition Is patient prescribed a controlled substance at d/c from ED?: No Time of Disposition: 00:45 Clinical Impression: Chronic back pain, Mid back pain, Lumbar radiculopathy Disposition: HOME SELF-CARE Condition: Fair Instructions (If sedation given, give patient instructions): Acute Low Back Pain (ED) Referrals: None,Stated [Primary Care Provider] - 1-2 days
[2022-11-06] MEDS ORDERED: traMADol 50 MG STARTER PACK 3 TAB BTL PO STA (00:58)
[2022-11-06] MEDS ORDERED: ACET/COD 300 MG/30 MG STARTER PACK 6 TAB BTL PO STA (00:58)
[2022-11-06 01:07] VITALS: BP 136/89; PULSE 63; RESP 16
== END 2022-11-06 01:09 | disposition home or self-care (01) ==
LOC: EC 21:16
DX: G89.29 Other chronic pain (principal); M54.16 Radiculopathy, lumbar region; F41.9 Anxiety disorder, unspecified; F17.200 Nicotine dependence, unspecified, uncomplicated; Z88.0 Allergy status to penicillin; Z79.899 Other long term (current) drug therapy; X50.9XXA Other and unspecified overexertion or strenuous movements or postures, initial encounter; Y92.009 Unspecified place in unspecified non-institutional (private) residence as the place of occurrence of the external cause
CPT/HCPCS: 99283; 96372; J1170; J8540

== ENCOUNTER 2022-11-07 15:30 | Emergency (ER) | payer OTHER ==
[2022-11-07 16:23] VITALS: TEMP 98.1
--- NOTE | 2022-11-07 16:25 | ED ---
Back Pain HPI - General Stated Complaint: Left Leg and Lower Back Pain Time Seen by Provider: 11/07/22 16:23 - History of Present Illness Initial Comments: Patient is a 41-year-old male who presents to the emergency department for back pain. Patient has history of chronic back pain he denies reinjury. He had a nerve block on Monday pain returned on Monday. He was then treated in our emergency department for back pain Monday night. He states the pain medications are not working well. He has an appointment with the pain clinic on Monday. No saddle anesthesia. No loss of bowel or bladder function. No leg weakness. He does have numbness and tingling down the left leg states is chronic. States steroids do not work for him. - Related Data Home Medications Medication Instructions Recorded Confirmed Ibuprofen [Motrin Ib] 200 mg PO DIRECTED PRN 10/26/22 10/28/22 Previous Rx's Medication Instructions Recorded Cyclobenzaprine [Flexeril] 5 mg PO TID PRN #15 tablet 11/07/22 Lidocaine 5% Patch [Lidoderm 5% 1 patch TOPICAL DAILY PRN #7 patch 11/07/22 Patch] Allergies Allergy/AdvReac Type Severity Reaction Status Date / Time Penicillins Allergy Unknown Verified 11/07/22 16:23 Review of Systems ROS Statement: Those systems with pertinent positive or pertinent negative responses have been documented in the HPI. ROS Other: All systems not noted in ROS Statement are negative. Past Medical History Past Medical History: Pneumonia Additional Past Medical History / Comment(s): chronic back pain History of Any Multi-Drug Resistant Organisms: None Reported Past Surgical History: Orthopedic Surgery Additional Past Surgical History / Comment(s): RT KNEE SURG. PAIN CLINIC PROC. Past Anesthesia/Blood Transfusion Reactions: No Reported Reaction Past Psychological History: Anxiety Smoking Status: Current every day smoker Past Alcohol Use History: Rare Past Drug Use History: None Reported General Exam - General Exam Comments Initial Comments: Visual Physical Exam Vital signs reviewed General: Well-appearing, nontoxic, no acute distress. Head: Normocephalic, atraumatic Eyes: PERRLA, EOMI ENT: Airway patent Chest: Nonlabored breathing Skin: No visual rash, normal skin tone Neuro: Alert and oriented 3 Musculoskeletal: No gross abnormalities General appearance: alert Respiratory exam: Present: normal lung sounds bilaterally. Absent: respiratory distress, wheezes, rales, rhonchi, stridor Cardiovascular Exam: Present: regular rate, normal rhythm, normal heart sounds. Absent: systolic murmur, diastolic murmur, rubs, gallop, clicks Neurological exam: Present: alert Expanded Sensory exam: Upper Extremity Light Touch: Normal, Lower Extremity Light Touch: Normal Motor strength exam: RUE: 5, LUE: 5, RLE: 5, LLE: 5 Skin exam: Present: warm, dry, intact, normal color. Absent: rash Course Vital Signs 11/07/22 11/07/22 16:20 19:07 Temperature 98.1 F Pulse Rate 79 55 L Respiratory 16 18 Rate Blood Pressure 145/88 138/89 O2 Sat by Pulse 99 98 Oximetry Medical Decision Making - Medical Decision Making I performed the QuickNote portion of this chart - Shona Bernabe PA-C Was pt. sent in by a medical professional or institution (AYDEE Esqueda, HOOKER OFF, urgent care, hospital, or half-way...) When possible be specific @ -No Did you speak to anyone other than the patient for history (EMS, parent, family, police, friend...)? What history was obtained from this source @ -No Did you review nursing and triage notes (agree or disagree)? Why? @ -I reviewed and agree with nursing and triage notes Were old charts reviewed (outside hosp., previous admission, EMS record, old EKG, old radiological studies, urgent care reports/EKG's, half-way records)? Report findings @ -No old charts were reviewed Differential Diagnosis (chest pain, altered mental status, abdominal pain women, abdominal pain men, vaginal bleeding, weakness, fever, dyspnea, syncope, headache, dizziness, GI bleed, back pain, seizure, CVA, palpatations, mental health)? @ -Differential Back Pain: Strain, zoster, cauda equina syndrome, epidural abscess, vertebral osteomyelitis, discitis, fracture, subluxation, disc herniation, DJD, spinal stenosis, dissection, AAA, pancreatitis, peptic ulcer disease, pyelonephritis, kidney stone, this is not meant to be an all-inclusive list. EKG interpreted by me (3pts min.). @ -As above X-rays interpreted by me (1pt min.). @ -None done CT interpreted by me (1pt min.). @ -None done U/S interpreted by me (1pt. min.). @ -None done What testing was considered but not performed or refused? (CT, X-rays, U/S, labs)? Why? @ -None What meds were considered but not given or refused? Why? @ -None Did you discuss the management of the patient with other professionals (professionals i.e. , PA, HOOKER OFF, lab, RT, psych nurse, social sciences department chair, dipper operator, teacher, credit officer, community case manager)? Give summary @ -No Was smoking cessation discussed for >3mins.? @ -No Was critical care preformed (if so, how long)? @ -No Were there social determinants of health that impacted care today? How? (Homelessness, low income, unemployed, alcoholism, drug addiction, transportation, low edu. Level, literacy, decrease access to med. care, custodial, rehab)? @ -No Was there de-escalation of care discussed even if they declined (Discuss DNR or withdrawal of care, Hospice)? DNR status @ -No What co-morbidities impacted this encounter? (DM, HTN, Smoking, COPD, CAD, Cancer, CVA, ARF, Chemo, Hep., AIDS, mental health diagnosis, sleep apnea, morbid obesity)? @ -Chronic back pain Was patient admitted / discharged? Hospital course, mention meds given and route, prescriptions, significant lab abnormalities, going to OR and other pertinent info. @ Patient presented with back pain. No alarming symptoms. No neurological deficit. Pain treated with improvement. Patient will be discharged with pain management that he is instructed to use sparingly until appointment with pain clinic. Undiagnosed new problem with uncertain prognosis? @ -No Drug Therapy requiring intensive monitoring for toxicity (Heparin, Nitro, Insulin, Cardizem)? @ -No Were any procedures done? @ -No Diagnosis/symptom? @ -Lumbar radiculopathy Acute, or Chronic, or Acute on Chronic? @ acute on chronic Uncomplicated (without systemic symptoms) or Complicated (systemic symptoms)? @ -Uncomplicated Side effects of treatment? @ -No Exacerbation, Progression, or Severe Exacerbation? @ -No Poses a threat to life or bodily function? How? (Chest pain, [place], [place], pneumonia, PE, COPD, DKA, ARF, appy, cholecystitis, CVA, Diverticulitis, Homicidal, Suicidal, threat to staff... and all critical care pts) @ -No Dr. Montalvo is my attending Disposition Clinical Impression: Lumbar radiculopathy Disposition: HOME SELF-CARE Condition: Good Instructions (If sedation given, give patient instructions): Lumbar Radiculopathy (ED) Additional Instructions: Take medication as directed. Do not take Flexeril and Tylenol 3 together. Do not drink alcohol or machinery while taking Flexeril. Please follow-up with your primary care provider and pain management in 1-2 days. Return to the emergency department if you experience new, concerning, or worsening symptoms. Prescriptions: Cyclobenzaprine [Flexeril] 5 mg PO TID PRN #15 tablet PRN Reason: Muscle Spasm Lidocaine 5% Patch [Lidoderm 5% Patch] 1 patch TOPICAL DAILY PRN #7 patch PRN Reason: Pain Is patient prescribed a controlled substance at d/c from ED?: No Referrals: Soheila Santacruz DO [REFERRING] - 1-2 days
[2022-11-07] MEDS ORDERED: LIDOCAINE 5% PATCH TOPICAL STA (18:24)
[2022-11-07] MEDS ORDERED: HYDROmorphone 0.5 MG/0.5 ML SYRINGE IM STA (18:24)
[2022-11-07] MEDS ORDERED: ACET/COD 300 MG/30 MG STARTER PACK 6 TAB BTL PO STA (18:43)
[2022-11-07 19:09] VITALS: BP 138/89; PULSE 55; RESP 18
== END 2022-11-07 19:09 | disposition home or self-care (01) ==
LOC: EC 15:30
DX: M54.16 Radiculopathy, lumbar region (principal); F17.200 Nicotine dependence, unspecified, uncomplicated; Z86.59 Personal history of other mental and behavioral disorders; Z88.0 Allergy status to penicillin
CPT/HCPCS: 99283; 96372; J1170

== ENCOUNTER 2022-11-09 00:17 | Emergency (ER) | payer OTHER ==
[2022-11-09 00:32] VITALS: RESP 18; TEMP 97.9
[2022-11-09] MEDS ORDERED: dexAMETHasone 2 MG TAB PO STA (01:39)
[2022-11-09] MEDS ORDERED: HYDROmorphone 0.5 MG/0.5 ML SYRINGE IM STA (01:39)
[2022-11-09] MEDS ORDERED: ETODOLAC 400 MG TAB PO STA (01:39)
[2022-11-09] MEDS ORDERED: traMADol 50 MG STARTER PACK 3 TAB BTL PO STA (01:41)
--- NOTE | 2022-11-09 01:42 | ED ---
Back Pain HPI - General Chief Complaint: Back Pain/Injury Stated Complaint: Back pain Time Seen by Provider: 11/09/22 01:32 Source: patient Limitations: no limitations - History of Present Illness Initial Comments: 41-year-old male presenting with chief complaint of back pain. Patient has chronic back pain. He currently sees pain management states that he had a nerve block performed october 28. He states that he worked for a few days and then afterwards his pain has been increasing. Pain radiates down the left leg. No saddle paresthesia or loss of bowel or bladder control. No new injury or trauma. - Related Data Home Medications Medication Instructions Recorded Confirmed Ibuprofen [Motrin Ib] 200 mg PO DIRECTED PRN 10/26/22 10/28/22 Previous Rx's Medication Instructions Recorded Cyclobenzaprine [Flexeril] 5 mg PO TID PRN #15 tablet 11/07/22 Lidocaine 5% Patch [Lidoderm 5% 1 patch TOPICAL DAILY PRN #7 patch 11/07/22 Patch] Allergies Allergy/AdvReac Type Severity Reaction Status Date / Time Penicillins Allergy Unknown Verified 11/09/22 00:30 Review of Systems ROS Statement: Those systems with pertinent positive or pertinent negative responses have been documented in the HPI. ROS Other: All systems not noted in ROS Statement are negative. Past Medical History Past Medical History: Pneumonia Additional Past Medical History / Comment(s): chronic back pain History of Any Multi-Drug Resistant Organisms: None Reported Past Surgical History: Orthopedic Surgery Additional Past Surgical History / Comment(s): RT KNEE SURG. PAIN CLINIC PROC. Past Anesthesia/Blood Transfusion Reactions: No Reported Reaction Past Psychological History: Anxiety Smoking Status: Current every day smoker Past Alcohol Use History: Rare Past Drug Use History: None Reported General Exam Limitations: no limitations General appearance: alert, in no apparent distress Head exam: Present: atraumatic, normocephalic, normal inspection Eye exam: Present: normal appearance, EOMI Neck exam: Present: normal inspection, full ROM Respiratory exam: Absent: respiratory distress Back exam: Present: normal inspection. Absent: full ROM Neurological exam: Present: alert, oriented X3, CN II-XII intact Psychiatric exam: Present: normal affect, normal mood Skin exam: Present: warm, dry, intact, normal color. Absent: rash Course Vital Signs 11/09/22 00:30 Temperature 97.9 F Pulse Rate 82 Respiratory 18 Rate Blood Pressure 132/91 O2 Sat by Pulse 98 Oximetry Medical Decision Making - Medical Decision Making Was pt. sent in by a medical professional or institution (, AYDEE, POWER MANAGER, urgent care, hospital, or half-way...) When possible be specific @ -No Did you speak to anyone other than the patient for history (EMS, parent, family, police, friend...)? What history was obtained from this source @ -No Did you review nursing and triage notes (agree or disagree)? Why? @ -I reviewed and agree with nursing and triage notes Were old charts reviewed (outside hosp., previous admission, EMS record, old EKG, old radiological studies, urgent care reports/EKG's, half-way records)? Report findings @ -No old charts were reviewed Differential Diagnosis (chest pain, altered mental status, abdominal pain women, abdominal pain men, vaginal bleeding, weakness, fever, dyspnea, syncope, headache, dizziness, GI bleed, back pain, seizure, CVA, palpatations, mental health, musculoskeletal)? @ - MDM Differential Back Pain: Strain, zoster, cauda equina syndrome, epidural abscess, vertebral osteomyelitis, discitis, fracture, subluxation, disc herniation, DJD, spinal stenosis, dissection, AAA, pancreatitis, peptic ulcer disease, pyelonephritis, kidney stone this is not meant to be an all-inclusive list. EKG interpreted by me (3pts min.). @ -As above X-rays interpreted by me (1pt min.). @ -None done CT interpreted by me (1pt min.). @ -None done U/S interpreted by me (1pt. min.). @ -None done What testing was considered but not performed or refused? (CT, X-rays, U/S, labs)? Why? @ -None What meds were considered but not given or refused? Why? @ -None Did you discuss the management of the patient with other professionals (professionals i.e. AYDEE Esqueda, POWER MANAGER, lab, RT, psych nurse, professor of social work, manufacturing leader, teacher, credit compliance officer, community case manager)? Give summary @ -No Was smoking cessation discussed for >3mins.? @ -No Was critical care preformed (if so, how long)? @ -No Were there social determinants of health that impacted care today? How? (Homelessness, low income, unemployed, alcoholism, drug addiction, transportation, low edu. Level, literacy, decrease access to med. care, [facility], rehab)? @ -No Was there de-escalation of care discussed even if they declined (Discuss DNR or withdrawal of care, Hospice)? DNR status @ -No What co-morbidities impacted this encounter? (DM, HTN, Smoking, COPD, CAD, Cancer, CVA, ARF, Chemo, Hep., AIDS, mental health diagnosis, sleep apnea, morbid obesity)? @ -None Was patient admitted / discharged? Hospital course, mention meds given and route, prescriptions, significant lab abnormalities, going to OR and other pertinent info. @ -41-year-old male presenting with chief complaint of chronic back pain. Recent nerve block done. No red flag symptoms. Patient was given analgesia and instructed to follow-up with pain management. He states that he has an upcoming appointment on . States that he also has appointments in place for physical therapy. Follow-up with PCP. Report back to ER with any new or worsening symptoms. Discussed return parameters and answered all questions. Patient conveyed verbal understanding and agreed to the plan. I discussed this case in detail with my attending Dr. Quintero Undiagnosed new problem with uncertain prognosis? @ -No Drug Therapy requiring intensive monitoring for toxicity (Heparin, Nitro, Insulin, Cardizem)? @ -No Were any procedures done? @ -No Diagnosis/symptom? @ -Chronic back pain Acute, or Chronic, or Acute on Chronic? @ -Acute on chronic Uncomplicated (without systemic symptoms) or Complicated (systemic symptoms)? @ -Uncomplicated Side effects of treatment? @ -No Exacerbation, Progression, or Severe Exacerbation? @ -No Poses a threat to life or bodily function? How? (Chest pain, [place], [place], pneumonia, PE, COPD, DKA, ARF, appy, cholecystitis, CVA, Diverticulitis, Homicidal, Suicidal, threat to staff... and all critical care pts) @ -No Disposition Clinical Impression: Chronic back pain Disposition: HOME SELF-CARE Condition: Good Instructions (If sedation given, give patient instructions): Chronic Back Pain (DC) Additional Instructions: Follow-up with pain management at your scheduled appointment. Report back to ER if any new or worsening symptoms. Is patient prescribed a controlled substance at d/c from ED?: No Referrals: Noam,Dhairya, DO [Primary Care Provider] - 1-2 days Time of Disposition: 01:42
[2022-11-09 02:19] VITALS: BP 126/78; PULSE 78
[2022-11-09] MEDS ORDERED: LIDOCAINE 5% PATCH TOPICAL SCH (09:00)
== END 2022-11-09 02:20 | disposition home or self-care (01) ==
LOC: EC 00:17
DX: G89.29 Other chronic pain (principal); M54.9 Dorsalgia, unspecified; F17.200 Nicotine dependence, unspecified, uncomplicated; Z88.0 Allergy status to penicillin
CPT/HCPCS: 99283; 96372; J8540; J1170

== ENCOUNTER → 2022-11-10 | Outpatient (CLI) | payer OTHER ==
[2022-11-10 13:05] VITALS: BP 127/92; PULSE 85; RESP 15; TEMP 97.9
--- NOTE | 2022-11-10 14:50 | P.PAINPG ---
PQRS Measure Charge Sheet Comment: 41 yr old male presents today w severe and chronic LBP secondary to DDD, spondylosis and facet arthropathy without myelopathy for evaluation s/p BL MBB L3-L5 #1. Pt states he experienced 85% pain relief x 1 days s/p procedure. Pt states pain level is provoked at 7 /10 in intensity, constant, localized in the R lower lumbar spine, achy in character w shooting pain towards the LLE. Pain is provoked by lifting, bending. Pain is alleviated by PT in 2019, physician guided exercises 2-3 times a week since 2019, heat, ice, medications (Tyl, Ibu), topical, injections in the past (LESIs x 3 in 2015, BL RFA L3-L5), chiropractic treatments x 3 sessions in 2021, repositioning and rest. Oswestry axial pain score of 31. Interventional procedures include LAMONT L5-S1 x1, BL RFA L3-L5, LESIs x3 (2015) Medications include Tyl, Ibu REVIEW OF ORGAN SYSTEMS: CONSTITUTIONAL: No fevers or chills. No recent weight loss. NEUROLOGICAL: + numbness and tingling along the distal extremities. No seizure disorders or headaches. MUSCULOSKELETAL: + pain PSYCHIATRIC: Denies current depression or suicidal thoughts. Physical Examinations : Constitutional : Cooperative , not in acute distress . Neurologic : Cranial nerve II to XII intact. No focal neurological deficits. Psychiatric : alert & oriented x 3. Matching mood & appropriate affect. Judgment & insight intact. Musculoskeletal : Cervical Spine Motor strength in the deltoid and biceps: Normal right side. Normal Left side Motor strength biceps and the wrist extensors: Normal right side . Normal left side Motor strength in the triceps muscle: Normal right side. Normal left side Deep tendon reflexes: Normal at the biceps. Normal at Brachioradialis. Normal at triceps Vertebral body tenderness to deep palpa tion over Cervical facet loading test: positive bilaterally Spurling test: positive bilaterally Neck distraction test: positive bilaterally Romel sign: positive bilaterally Lumbar spine Motor strength lower extremities ,thigh and legs 5/5 Right side , 5/5 Left side Deep tendon reflexes : Normal Knee Jerk. Normal Ankle Jerk Vertebral body tenderness Guidry Test positive Lumbar facet Loading Test: positive Right / positive Left over BL L4-L5, L5-S1 Range of motion of the lumbar spine Fl exion 30 degrees, extension 10 degrees Straight Leg Raise test: Left/ Right positive at 30 degree Jose test: positive right / positive left. Severe tenderness over the Sacroiliac joint on the Right / Left sides Gaenslen test: positive bilaterally Seated flexion test: positive bilaterally. Sacral spine : Severe tenderness over the Sacroiliac joint: right side / left side Range of motion: Flexion of the lumbar spine <60 degrees Range of motion: Extension of the lumbar spine <20 degrees Gaenslen's Test positive Giuseppe's Test positive Jose test: positive right side / left side Thigh Thrust Test Sacral Thrust Test Imaging: MRI non contrast of the lumbar spine from 02/16/21 reviewed Assessment/ Plan : Lumbar DDD Recommendation of BL MBB L4-L5, L5-S1 #2. May need a series of injections, up until RFA, for optimal pain relief. Risks, benefits of procedure discussed and patient verbalized understanding. [place] 10/325mg #15 NR. Use, side effects, adverse reactions and safe storage discussed. Admits to aspirin or anti- coagulant use or medical history of diabetes. Protocol for discontinuation/ continuation of medications jennie procedure discussed. Minimal anesthesia provided, if clinically indicated, consisting of Versed and Fentanyl. All questions answered. I have spent greater than 30 minutes on patient care today. Dr Tyson was available by phone for the evaluation of this patient. The time was used to review the medical records including relevant urine studies and Prescription history (MAPs), review of the available imaging, evaluation and examination of the patient, coordination of care with the medical staff and if applicable referring physicians, as well as creation of the medical record PQRS Narrative: Smoking Status Current every day smoker Hx Alcohol Use (MH) No Home Medications: Ambulatory Orders Ibuprofen [Motrin Ib] 200 mg PO DIRECTED PRN 10/26/22 Cyclobenzaprine [Flexeril] 5 mg PO TID PRN #15 tablet 11/07/22 Lidocaine 5% Patch [Lidoderm 5% Patch] 1 patch TOPICAL DAILY PRN #7 patch 11/07/22 Controlled Substance Measures - Controlled Substance Measures Is patient prescribed a controlled substance at discharge?: Yes When asked, does pt state using other controlled substances?: Yes If prescribed controlled substance>3 days was MAPS reviewed?: Prescribed <3 Days
== END ==
LOC: PNWHC3 12:41
PROVIDERS: ATTEND Specialist
DX: M51.37 Other intervertebral disc degeneration, lumbosacral region (principal); F17.200 Nicotine dependence, unspecified, uncomplicated; Z88.0 Allergy status to penicillin
CPT/HCPCS: 99211

== ENCOUNTER 2022-11-13 21:36 | Emergency (ER) | payer OTHER ==
[2022-11-13 21:40] VITALS: TEMP 98.2
[2022-11-13] MEDS ORDERED: DIPH,PERTUS(ACELL)TETVAC-LF 0.5 ML VIAL IM ONE (21:47)
--- NOTE | 2022-11-13 22:45 | ED ---
General Adult HPI - General Chief complaint: Extremity Injury, Upper Stated complaint: Hand pain after recent wound Time Seen by Provider: 11/13/22 21:43 Source: patient, RN notes reviewed Mode of arrival: ambulatory Limitations: no limitations - History of Present Illness Initial comments: 41-year-old male presents emergency department chief complaint of left hand wound. He states that he was working in the garage 2 days ago when he poked his hand with a flat head screwdriver. He states that he is worried there were metal shavings on the screwdriver because he has pain. He is unsure of his last tetanus shot. He denies erythema around the wound. - Related Data Home Medications Medication Instructions Recorded Confirmed Ibuprofen [Motrin Ib] 200 mg PO DIRECTED PRN 10/26/22 10/28/22 Previous Rx's Medication Instructions Recorded Cyclobenzaprine [Flexeril] 5 mg PO TID PRN #15 tablet 11/07/22 Lidocaine 5% Patch [Lidoderm 5% 1 patch TOPICAL DAILY PRN #7 patch 11/07/22 Patch] HYDROcodone/APAP 10-325MG [[place] 1 tab PO Q4HR PRN 3 Days #15 tab 11/10/22 10-325] Allergies Allergy/AdvReac Type Severity Reaction Status Date / Time Penicillins Allergy Unknown Verified 11/09/22 00:30 Review of Systems ROS Statement: Those systems with pertinent positive or pertinent negative responses have been documented in the HPI. ROS Other: All systems not noted in ROS Statement are negative. Past Medical History Past Medical History: Pneumonia Additional Past Medical History / Comment(s): chronic back pain History of Any Multi-Drug Resistant Organisms: None Reported Past Surgical History: Orthopedic Surgery Additional Past Surgical History / Comment(s): RT KNEE SURG. PAIN CLINIC PROC. Past Anesthesia/Blood Transfusion Reactions: No Reported Reaction Past Psychological History: Anxiety Smoking Status: Current every day smoker Past Alcohol Use History: Rare Past Drug Use History: None Reported General Exam Limitations: no limitations General appearance: alert, in no apparent distress Head exam: Present: atraumatic, normocephalic, normal inspection Eye exam: Present: normal appearance ENT exam: Present: normal exam, mucous membranes moist Neck exam: Present: normal inspection. Absent: tenderness, meningismus, lymphadenopathy Respiratory exam: Present: normal lung sounds bilaterally. Absent: respiratory distress, wheezes, rales, rhonchi, stridor Cardiovascular Exam: Present: regular rate, normal rhythm, normal heart sounds. Absent: systolic murmur, diastolic murmur, rubs, gallop, clicks Extremities exam: Present: normal inspection, full ROM, normal capillary refill. Absent: tenderness, pedal edema, joint swelling, calf tenderness Back exam: Present: normal inspection Neurological exam: Present: alert, oriented X3 Psychiatric exam: Present: normal affect, normal mood Skin exam: Present: warm, dry, normal color, other (0.25cm laceration/ abrasion to palmar aspect of left hand ). Absent: rash Course Vital Signs 11/13/22 11/13/22 21:38 22:52 Temperature 98.2 F Pulse Rate 80 69 Respiratory 16 18 Rate Blood Pressure 133/90 120/83 O2 Sat by Pulse 98 99 Oximetry Medical Decision Making - Medical Decision Making Was pt. sent in by a medical professional or institution (, PA, SUPERVISOR FURNACE PROCESS, urgent c are, hospital, or long term...) When possible be specific @ -No Did you speak to anyone other than the patient for history (EMS, parent, family, police, friend...)? What history was obtained from this source @ -No Did you review nursing and triage notes (agree or disagree)? Why? @ -I reviewed and agree with nursing and triage notes Were old charts reviewed (outside hosp., previous admission, EMS record, old EKG, old radiological studies, urgent care reports/EKG's, long term records)? Report findings @ -No old charts were reviewed Differential Diagnosis (chest pain, altered mental status, abdominal pain women, abdominal pain men, vaginal bleeding, weakness, fever, dyspnea, syncope, headache, dizziness, GI bleed, back pain, seizure, CVA, palpatations, mental health, musculoskeletal)? @ -Differential Musculoskeletal Muscular strain, contusion, ligament sprain, fracture, arthritis, septic arthritis, bursitis, cellulitis, muscle spasm, nerve compression, DVT, arterial occlusion, herpes zoster, electrolyte abnormality, tumor.... This is not meant to be in all inclusive list EKG interpreted by me (3pts min.). @ -none X-rays interpreted by me (1pt min.). @ -XR left hand showed no obvious foreign body CT interpreted by me (1pt min.). @ -None done U/S interpreted by me (1pt. min.). @ -None done What testing was considered but not performed or refused? (CT, X-rays, U/S, labs)? Why? @ -None What meds were considered but not given or refused? Why? @ -None Did you discuss the management of the patient with other professionals (professionals i.e. Dr., PA, SUPERVISOR FURNACE PROCESS, lab, RT, psych nurse, high school social studies tutor, frame hand, teacher, correction officer city or county jail, family service caseworker)? Give summary @ -No Was smoking cessation discussed for >3mins.? @ -No Was critical care preformed (if so, how long)? @ -No Were there social determinants of health that impacted care today? How? (Homel essness, low income, unemployed, alcoholism, drug addiction, transportation, low edu. Level, literacy, decrease access to med. care, fci, rehab)? @ -No Was there de-escalation of care discussed even if they declined (Discuss DNR or withdrawal of care, Hospice)? DNR status @ -No What co-morbidities impacted this encounter? (DM, HTN, Smoking, COPD, CAD, Cancer, CVA, ARF, Chemo, Hep., AIDS, mental health diagnosis, sleep apnea, morbid obesity)? @ -None Was patient admitted / discharged? Hospital course, mention meds given and route, prescriptions, significant lab abnormalities, going to OR and other pertinent info. @ -discharged. Patient presents emergency department chief complaint of pain in his left palm after he poked his hand with his screwdriver. No obvious foreign body on physical exam. XR obtained showed no obvious foreign body. There are no signs of infection. Patient updated on tetanus vaccination. Patient stable at time of discharge. Case discussed with my attending, Dr. Quintero Undiagnosed new problem with uncertain prognosis? @ -No Drug Therapy requiring intensive monitoring for toxicity (Heparin, Nitro, Insulin, Cardizem)? @ -No Were any procedures done? @ -No Diagnosis/symptom? @ -left hand injury Acute, or Chronic, or Acute on Chronic? @ -Acute Uncomplicated (without systemic symptoms) or Complicated (systemic symptoms)? @ -Uncomplicated Side effects of treatment? @ -No Exacerbation, Progression, or Severe Exacerbation? @ -No Poses a threat to life or bodily function? How? (Chest pain, [place], [place], pneumonia, PE, COPD, DKA, ARF, appy, cholecystitis, CVA, Diverticulitis, Homicidal, Suicidal, threat to staff... and all critical care pts) @ -No Disposition Clinical Impression: Abrasion of left hand Disposition: HOME SELF-CARE Condition: Stable Instructions (If sedation given, give patient instructions): Acute Wound Care (ED) Additional Instructions: Please return to the emergency department for new or worsening symptoms. Is patient prescribed a controlled substance at d/c from ED?: No Referrals: Soheila Santacruz DO [Primary Care Provider] - 1-2 days Time of Disposition: 22:48
[2022-11-13 22:57] VITALS: BP 120/83; PULSE 69; RESP 18
--- NOTE | 2022-11-13 23:12 | XR ---
EXAM: XR Left Hand Complete, 3 or More Views CLINICAL HISTORY: ITS.REASON XR Reason: poss fb TECHNIQUE: Frontal, lateral and oblique views of the left hand. COMPARISON: No previous studies. FINDINGS: Bones/joints: Mild osteoarthritic changes at the DIP and PIP joints. Normal anatomic alignment. No acute fracture, dislocation, or destructive process. Soft tissues: The soft tissues are unremarkable. No radiopaque foreign body. IMPRESSION: 1. Mild osteoarthritic changes at the DIP and PIP joints. 2. No acute fracture or dislocation. 3. No radiopaque foreign body. 4. If there is concern for cellulitis or osteomyelitis, MRI imaging is advised for follow-up.
== END 2022-11-13 22:57 | disposition home or self-care (01) ==
LOC: EC 21:36
DX: S60.512A Abrasion of left hand, initial encounter (principal); F17.200 Nicotine dependence, unspecified, uncomplicated; Z86.59 Personal history of other mental and behavioral disorders; Z88.0 Allergy status to penicillin; Z23 Encounter for immunization; W22.8XXA Striking against or struck by other objects, initial encounter; Y92.59 Other trade areas as the place of occurrence of the external cause; Y99.0 Civilian activity done for income or pay
CPT/HCPCS: 90471; 90715; 99283

== ENCOUNTER 2022-11-18 00:59 | Emergency (ER) | payer OTHER ==
[2022-11-18 01:07] VITALS: RESP 18; TEMP 97.8
[2022-11-18] MEDS ORDERED: HYDROmorphone 0.5 MG/0.5 ML SYRINGE IM STA (01:11)
[2022-11-18] MEDS ORDERED: LIDOCAINE 5% PATCH TOPICAL STA (01:14)
--- NOTE | 2022-11-18 01:51 | ED ---
General Adult HPI - General Chief complaint: Neck Pain/Injury Stated complaint: Back Pain, Left arm pain, neck pain Time Seen by Provider: 11/18/22 01:10 Source: patient Mode of arrival: ambulatory Limitations: no limitations - History of Present Illness Initial comments: Patient is 41-year-old male who presents the emergency department for chronic neck pain. Patient has chronic back and neck pain. He has numbness and tingling on the left arm which is also chronic. He follows with pain management. Taking Motrin at home without relief. No new injury. Denies focal weakness. No saddle anesthesia, loss of bowel or bladder function. - Related Data Home Medications Medication Instructions Recorded Confirmed Ibuprofen [Motrin Ib] 800 mg PO DIRECTED PRN 10/26/22 11/17/22 Previous Rx's Medication Instructions Recorded Cyclobenzaprine [Flexeril] 5 mg PO TID PRN #15 tablet 11/07/22 Lidocaine 5% Patch [Lidoderm 5% 1 patch TOPICAL DAILY PRN #7 patch 11/07/22 Patch] Naproxen [EC-Naprosyn] 500 mg PO BID 30 Days #60 tab 11/17/22 Acetaminophen Tab [Tylenol Tab] 1,000 mg PO Q6HR PRN #30 tablet 11/18/22 Lidocaine 5% Patch [Lidoderm 5% 1 patch TOPICAL DAILY PRN #7 patch 11/18/22 Patch] Allergies Allergy/AdvReac Type Severity Reaction Status Date / Time Penicillins Allergy Unknown Verified 11/18/22 01:04 Review of Systems ROS Statement: Those systems with pertinent positive or pertinent negative responses have been documented in the HPI. ROS Other: All systems not noted in ROS Statement are negative. Past Medical History Past Medical History: Pneumonia Additional Past Medical History / Comment(s): chronic back pain- worse after last tx History of Any Multi-Drug Resistant Organisms: None Reported Past Surgical History: Orthopedic Surgery Additional Past Surgical History / Comment(s): RT KNEE SURG. PAIN CLINIC PROC. Past Anesthesia/Blood Transfusion Reactions: No Reported Reaction Past Psychological History: Anxiety Smoking Status: Current every day smoker Past Alcohol Use History: None Reported Past Drug Use History: None Reported - Past Family History Mother Family Medical History: Liver Disease Additional Family Medical History / Comment(s): , liver failure from Hep C Father Family Medical History: Hypertension Additional Family Medical History / Comment(s): drinker General Exam Limitations: no limitations General appearance: alert Head exam: Present: atraumatic, normocephalic, normal inspection Eye exam: Present: normal appearance, PERRL, EOMI. Absent: scleral icterus, conjunctival injection, periorbital swelling Neck exam: Present: normal inspection, tenderness (left sternocleidomastoid), full ROM. Absent: meningismus, lymphadenopathy Respiratory exam: Present: normal lung sounds bilaterally. Absent: respiratory distress, wheezes, rales, rhonchi, stridor Cardiovascular Exam: Present: regular rate, normal rhythm, normal heart sounds. Absent: systolic murmur, diastolic murmur, rubs, gallop, clicks Extremities exam: Present: normal inspection, full ROM, normal capillary refill. Absent: tenderness Back exam: Present: normal inspection, full ROM. Absent: paraspinal tenderness, vertebral tenderness Neurological exam: Present: alert Expanded Sensory exam: Upper Extremity Light Touch: Normal, Lower Extremity Light Touch: Normal Motor strength exam: RUE: 5, LUE: 5, RLE: 5, LLE: 5 Skin exam: Present: warm, dry, intact, normal color. Absent: rash Course Vital Signs 11/18/22 01:04 Temperature 97.8 F Pulse Rate 94 Respiratory 18 Rate Blood Pressure 153/94 O2 Sat by Pulse 98 Oximetry Medical Decision Making - Medical Decision Making Was pt. sent in by a medical professional or institution (AYDEE Esqueda, DIRECTOR BUSINESS INTELLIGENCE, urgent care, hospital, or assisted...) When possible be specific @ -No Did you speak to anyone other than the patient for history (EMS, parent, family, police, friend...)? What history was obtained from this source @ -No Did you review nursing and triage notes (agree or disagree)? Why? @ -I reviewed and agree with nursing and triage notes Were old charts reviewed (outside hosp., previous admission, EMS record, old EKG, old radiological studies, urgent care reports/EKG's, assisted records)? Report findings @ -No old charts were reviewed Differential Diagnosis (chest pain, altered mental status, abdominal pain women, abdominal pain men, vaginal bleeding, weakness, fever, dyspnea, syncope, headache, dizziness, GI bleed, back pain, seizure, CVA, palpatations, mental health)? @ -Differential Back Pain: Strain, zoster, cauda equina syndrome, epidural abscess, vertebral osteomyelitis, discitis, fracture, subluxation, disc herniation, DJD, spinal stenosis, dissection, AAA, pancreatitis, peptic ulcer disease, pyelonephritis, kidney stone, this is not meant to be an all-inclusive list. EKG interpreted by me (3pts min.). @ -As above X-rays interpreted by me (1pt min.). @ -None done CT interpreted by me (1pt min.). @ -None done U/S interpreted by me (1pt. min.). @ -None done What testing was considered but not performed or refused? (CT, X-rays, U/S, labs)? Why? @ -None What meds were considered but not given or refused? Why? @ -None Did you discuss the management of the patient with other professionals (professionals i.e. , PA, DIRECTOR BUSINESS INTELLIGENCE, lab, RT, psych nurse, social worker assistant, director data processing, teacher, wildlife officer, rn case manager hospice)? Give summary @ -No Was smoking cessation discussed for >3mins.? @ -No Was critical care preformed (if so, how long)? @ -No Were there social determinants of health that impacted care today? How? (Homelessness, low income, unemployed, alcoholism, drug addiction, transportation, low edu. Level, literacy, decrease access to med. care, longterm, rehab)? @ -No Was there de-escalation of care discussed even if they declined (Discuss DNR or withdrawal of care, Hospice)? DNR status @ -No What co-morbidities impacted this encounter? (DM, HTN, Smoking, COPD, CAD, Cancer, CVA, ARF, Chemo, Hep., AIDS, mental health diagnosis, sleep apnea, morbid obesity)? @ -Chronic neck pain, chronic back pain Was patient admitted / discharged? Hospital course, mention meds given and route, prescriptions, significant lab abnormalities, going to OR and other pertinent info. @ -Discharged with pain management. No alarming features. No neurological deficit. Undiagnosed new problem with uncertain prognosis? @ -No Drug Therapy requiring intensive monitoring for toxicity (Heparin, Nitro, Insulin, Cardizem)? @ -No Were any procedures done? @ -No Diagnosis/symptom? @ -Chronic neck pain Acute, or Chronic, or Acute on Chronic? @ -Chronic Uncomplicated (without systemic symptoms) or Complicated (systemic symptoms)? @ -Uncomplicated Side effects of treatment? @ -No Exacerbation, Progression, or Severe Exacerbation? @ -No Poses a threat to life or bodily function? How? (Chest pain, [place], [place], pneumonia, PE, COPD, DKA, ARF, appy, cholecystitis, CVA, Diverticulitis, Homicidal, Suicidal, threat to staff... and all critical care pts) @ -No Dr. Cheney is my attending Disposition Clinical Impression: Chronic neck pain Disposition: HOME SELF-CARE Condition: Good Instructions (If sedation given, give patient instructions): Chronic Back Pain (DC) Additional Instructions: Alternate Tylenol and Motrin every 3-4 hours for pain. Continue Flexeril and lidocaine patches. Follow-up with pain specialist in 1-2 days. Return to the emergency department if you experience new, concerning, or worsening symptoms. Prescriptions: Lidocaine 5% Patch [Lidoderm 5% Patch] 1 patch TOPICAL DAILY PRN #7 patch PRN Reason: Pain Acetaminophen Tab [Tylenol Tab] 1,000 mg PO Q6HR PRN #30 tablet PRN Reason: Pain Is patient prescribed a controlled substance at d/c from ED?: No Referrals: Soheila Santacruz DO [Primary Care Provider] - 1-2 days
[2022-11-18 02:04] VITALS: BP 127/87; PULSE 83
== END 2022-11-18 02:04 | disposition home or self-care (01) ==
LOC: EC 00:59
DX: G89.29 Other chronic pain (principal); M54.2 Cervicalgia; F17.200 Nicotine dependence, unspecified, uncomplicated; Z88.0 Allergy status to penicillin
CPT/HCPCS: 99283; 96372; J1170

== ENCOUNTER 2022-11-18 23:17 | Emergency (ER) | payer OTHER ==
[2022-11-18 23:21] VITALS: RESP 18; TEMP 98.7
[2022-11-19] MEDS ORDERED: HYDROmorphone 1 MG/ML 1 ML SYRINGE IM STA (00:03)
[2022-11-19] MEDS ORDERED: ACET/COD 300 MG/30 MG STARTER PACK 6 TAB BTL PO STA (00:23)
--- NOTE | 2022-11-19 00:24 | ED ---
Back Pain HPI - General Chief Complaint: Back Pain/Injury Stated Complaint: Left side pain Time Seen by Provider: 11/19/22 00:03 Source: patient Limitations: no limitations - History of Present Illness Initial Comments: Patient is 41-year-old male who presents to the emergency department for neck and back pain. Patient has chronic neck and back pain. He follows with pain clinic states he has not been able to hold on this week. He was evaluated in our emergency department yesterday for identical concern. He has numbness and tingling down the left arm which is chronic. Denies weakness, saddle anesthesia, loss of bowel or bladder function. - Related Data Home Medications Medication Instructions Recorded Confirmed Ibuprofen [Motrin Ib] 800 mg PO DIRECTED PRN 10/26/22 11/17/22 Previous Rx's Medication Instructions Recorded Cyclobenzaprine [Flexeril] 5 mg PO TID PRN #15 tablet 11/07/22 Lidocaine 5% Patch [Lidoderm 5% 1 patch TOPICAL DAILY PRN #7 patch 11/07/22 Patch] Naproxen [EC-Naprosyn] 500 mg PO BID 30 Days #60 tab 11/17/22 Acetaminophen Tab [Tylenol Tab] 1,000 mg PO Q6HR PRN #30 tablet 11/18/22 Lidocaine 5% Patch [Lidoderm 5% 1 patch TOPICAL DAILY PRN #7 patch 11/18/22 Patch] Allergies Allergy/AdvReac Type Severity Reaction Status Date / Time Penicillins Allergy Unknown Verified 11/18/22 23:21 Review of Systems ROS Statement: Those systems with pertinent positive or pertinent negative responses have been documented in the HPI. ROS Other: All systems not noted in ROS Statement are negative. Past Medical History Past Medical History: Pneumonia Additional Past Medical History / Comment(s): chronic back pain- worse after last tx History of Any Multi-Drug Resistant Organisms: None Reported Past Surgical History: Orthopedic Surgery Additional Past Surgical History / Comment(s): RT KNEE SURG. PAIN CLINIC PROC. Past Anesthesia/Blood Transfusion Reactions: No Reported Reaction Past Psychological History: Anxiety Smoking Status: Current every day smoker Past Alcohol Use History: None Reported Past Drug Use History: None Reported - Past Family History Mother Family Medical History: Liver Disease Additional Family Medical History / Comment(s): , liver failure from Hep C Father Family Medical History: Hypertension Additional Family Medical History / Comment(s): drinker General Exam Limitations: no limitations General appearance: alert Neck exam: Present: normal inspection, tenderness (Left sternocleidomastoid), full ROM Respiratory exam: Present: normal lung sounds bilaterally. Absent: respiratory distress, wheezes, rales, rhonchi, stridor Cardiovascular Exam: Present: regular rate, normal rhythm, normal heart sounds. Absent: systolic murmur, diastolic murmur, rubs, gallop, clicks Neurological exam: Present: alert Expanded Sensory exam: Upper Extremity Light Touch: Normal, Lower Extremity Light Touch: Normal Motor strength exam: RUE: 5, LUE: 5, RLE: 5, LLE: 5 Psychiatric exam: Present: normal affect, normal mood Skin exam: Present: warm, dry, intact, normal color. Absent: rash Course Vital Signs 11/18/22 11/19/22 23:19 01:21 Temperature 98.7 F Pulse Rate 86 64 Respiratory 18 18 Rate Blood Pressure 137/90 138/94 O2 Sat by Pulse 99 100 Oximetry Medical Decision Making - Medical Decision Making Was pt. sent in by a medical professional or institution (, PA, UNDER CUTTER, urgent care, hospital, or skilled nursing...) When possible be specific @ -No Did you speak to anyone other than the patient for history (EMS, parent, family, police, friend...)? What history was obtained from this source @ -No Did you review nursing and triage notes (agree or disagree)? Why? @ -I reviewed and agree with nursing and triage notes Were old charts reviewed (outside hosp., previous admission, EMS record, old EKG, old radiological studies, urgent care reports/EKG's, skilled nursing records)? Report findings @ -No old charts were reviewed Differential Diagnosis (chest pain, altered mental status, abdominal pain women, abdominal pain men, vaginal bleeding, weakness, fever, dyspnea, syncope, h eadache, dizziness, GI bleed, back pain, seizure, CVA, palpatations, mental health)? @ Differential Back Pain: Strain, zoster, cauda equina syndrome, epidural abscess, vertebral o steomyelitis, discitis, fracture, subluxation, disc herniation, DJD, spinal stenosis, dissection, AAA, pancreatitis, peptic ulcer disease, pyelonephritis, kidney stone, this is not meant to be an all-inclusive list. EKG interpreted by me (3pts min.). @ -As above X-rays interpreted by me (1pt min.). @ -None done CT interpreted by me (1pt min.). @ -None done U/S interpreted by me (1pt. min.). @ -None done What testing was considered but not performed or refused? (CT, X-rays, U/S, labs)? Why? @ -None What meds were considered but not given or refused? Why? @ -None Did you discuss the management of the patient with other professionals (professionals i.e. Dr., PA, UNDER CUTTER, lab, RT, psych nurse, social work case manager, gunite mixer, teacher, biosecurity officer, case picker)? Give summary @ -No Was smoking cessation discussed for >3mins.? @ -No Was critical care preformed (if so, how long)? @ -No Were there social determinants of health that impacted care today? How? (Homelessness, low income, unemployed, alcoholism, drug addiction, transportation, low edu. Level, literacy, decrease access to med. care, nursing home, rehab)? @ -No Was there de-escalation of care discussed even if they declined (Discuss DNR or withdrawal of care, Hospice)? DNR status @ -No What co-morbidities impacted this encounter? (DM, HTN, Smoking, COPD, CAD, Cancer, CVA, ARF, Chemo, Hep., AIDS, mental health diagnosis, sleep apnea, morbid obesity)? @ -Chronic neck and back pain Was patient admitted / discharged? Hospital course, mention meds given and route, prescriptions, significant lab abnormalities, going to OR and other pertinent info. @Discharged Undiagnosed new problem with uncertain prognosis? @ -No Drug Therapy requiring intensive monitoring for toxicity (Heparin, Nitro, Insulin, Cardizem)? @ -No] Were any procedures done? @ -[No] Diagnosis/symptom? @ -Chronic neck pain, chronic back pain Acute, or Chronic, or Acute on Chronic? @ -Chronic Uncomplicated (without systemic symptoms) or Complicated (systemic symptoms)? @ -Uncomplicated Side effects of treatment? @ -[No] Exacerbation, Progression, or Severe Exacerbation? @ -[No] Poses a threat to life or bodily function? How? (Chest pain, [place], [place], pneumonia, PE, COPD, DKA, ARF, appy, cholecystitis, CVA, Diverticulitis, Homicidal, Suicidal, threat to staff... and all critical care pts) @ -[No] Dr. Mukherjee is my attending Disposition Clinical Impression: Chronic back pain, Chronic neck pain Disposition: HOME SELF-CARE Condition: Good Instructions (If sedation given, give patient instructions): Acute Low Back Pain (ED) Additional Instructions: Take medication as directed. Please follow-up with pain clinic in 1-2 days. Return to the emergency department if you experience new, concerning, or worsening symptoms. Is patient prescribed a controlled substance at d/c from ED?: No Referrals: Soheila Santacruz DO [Primary Care Provider] - 1-2 days
[2022-11-19 01:44] VITALS: BP 138/94; PULSE 64
== END 2022-11-19 01:50 | disposition home or self-care (01) ==
LOC: EC 23:17
DX: G89.29 Other chronic pain (principal); M54.9 Dorsalgia, unspecified; M54.2 Cervicalgia; F17.200 Nicotine dependence, unspecified, uncomplicated; Z88.0 Allergy status to penicillin; Z86.59 Personal history of other mental and behavioral disorders
CPT/HCPCS: 99283; 96372; J1170

== ENCOUNTER 2022-11-21 23:22 | Emergency (ER) | payer OTHER ==
[2022-11-21 23:50] VITALS: TEMP 98.1
[2022-11-22] MEDS ORDERED: traMADol 50 MG TAB PO STA (00:18)
[2022-11-22] MEDS ORDERED: KETOROLAC 15 MG/ML 1 ML VIAL IM STA (00:18)
[2022-11-22] MEDS ORDERED: ORPHENADRINE 30 MG/ML 2 ML VIAL IM STA (00:18)
--- NOTE | 2022-11-22 00:27 | ED ---
Back Pain HPI - General Chief Complaint: Back Pain/Injury Stated Complaint: Back Pain Time Seen by Provider: 11/22/22 00:03 Source: patient Limitations: no limitations - History of Present Illness Initial Comments: 41-year-old male well known to our ER presenting with chief complaint of chronic back and neck pain. No new injury or trauma. No change in his pain. No loss of bowel or bladder control or saddle paresthesia. Patient states that he is currently going to pain management and his next appointment is this coming Monday. He also states that he has a physical therapy appointment this coming Monday. No abdominal pain, dysuria, hematuria, fever, chills, nausea, vomiting, chest pain, difficulty breathing. - Related Data Home Medications Medication Instructions Recorded Confirmed Ibuprofen [Motrin Ib] 800 mg PO DIRECTED PRN 10/26/22 11/17/22 Previous Rx's Medication Instructions Recorded Cyclobenzaprine [Flexeril] 5 mg PO TID PRN #15 tablet 11/07/22 Lidocaine 5% Patch [Lidoderm 5% 1 patch TOPICAL DAILY PRN #7 patch 11/07/22 Patch] Naproxen [EC-Naprosyn] 500 mg PO BID 30 Days #60 tab 11/17/22 Acetaminophen Tab [Tylenol Tab] 1,000 mg PO Q6HR PRN #30 tablet 11/18/22 Lidocaine 5% Patch [Lidoderm 5% 1 patch TOPICAL DAILY PRN #7 patch 11/18/22 Patch] Allergies Allergy/AdvReac Type Severity Reaction Status Date / Time Penicillins Allergy Unknown Verified 11/21/22 23:48 Review of Systems ROS Statement: Those systems with pertinent positive or pertinent negative responses have been documented in the HPI. ROS Other: All systems not noted in ROS Statement are negative. Past Medical History Past Medical History: Pneumonia Additional Past Medical History / Comment(s): chronic back pain- worse after last tx History of Any Multi-Drug Resistant Organisms: None Reported Past Surgical History: Orthopedic Surgery Additional Past Surgical History / Comment(s): RT KNEE SURG. PAIN CLINIC PROC. Past Anesthesia/Blood Transfusion Reactions: No Reported Reaction Past Psychological History: Anxiety Smoking Status: Current every day smoker Past Alcohol Use History: None Reported Past Drug Use History: None Reported - Past Family History Mother Family Medical History: Liver Disease Additional Family Medical History / Comment(s): , liver failure from Hep C Father Family Medical History: Hypertension Additional Family Medical History / Comment(s): drinker General Exam Limitations: no limitations General appearance: alert, in no apparent distress Head exam: Present: atraumatic, normocephalic, normal inspection Eye exam: Present: normal appearance, EOMI Neck exam: Present: normal inspection. Absent: full ROM Respiratory exam: Absent: respiratory distress Back exam: Present: normal inspection Neurological exam: Present: alert, oriented X3, CN II-XII intact Psychiatric exam: Present: normal affect, normal mood Skin exam: Present: warm, dry, intact, normal color. Absent: rash Course Vital Signs 11/21/22 11/22/22 23:48 01:18 Temperature 98.1 F Pulse Rate 102 H 79 Respiratory 18 16 Rate Blood Pressure 146/94 120/86 O2 Sat by Pulse 99 100 Oximetry Medical Decision Making - Medical Decision Making Was pt. sent in by a medical professional or institution (, PA, RESEARCH COORDINATOR, urgent care, hospital, or fdc...) When possible be specific @ -No Did you speak to anyone other than the patient for history (EMS, parent, family, police, friend...)? What history was obtained from this source @ -No Did you review nursing and triage notes (agree or disagree)? Why? @ -I reviewed and agree with nursing and triage notes Were old charts reviewed (outside hosp., previous admission, EMS record, old EKG, old radiological studies, urgent care reports/EKG's, fdc records)? Report findings @ -No old charts were reviewed Differential Diagnosis (chest pain, altered mental status, abdominal pain women, abdominal pain men, vaginal bleeding, weakness, fever, dyspnea, syncope, headache, dizziness, GI bleed, back pain, seizure, CVA, palpatations, mental health, musculoskeletal)? @ - MDM Differential Back Pain: Strain, zoster, cauda equina syndrome, epidural abscess, vertebral osteomyelitis, discitis, fracture, subluxation, disc herniation, DJD, spinal stenosis, dissection, AAA, pancreatitis, peptic ulcer disease, pyelonephritis, kidney stone this is not meant to be an all-inclusive list. EKG interpreted by me (3pts min.). @ -As above X-rays interpreted by me (1pt min.). @ -None done CT interpreted by me (1pt min.). @ -None done U/S interpreted by me (1pt. min.). @ -None done What testing was considered but not performed or refused? (CT, X-rays, U/S, labs)? Why? @ -None What meds were considered but not given or refused? Why? @ -None Did you discuss the management of the patient with other professionals (professionals i.e. Dr., PA, RESEARCH COORDINATOR, lab, RT, psych nurse, hospice social worker, motor equipment sergeant, teacher, reserve officer, case sealer)? Give summary @ -No Was smoking cessation discussed for >3mins.? @ -No Was critical care preformed (if so, how long)? @ -No Were there social determinants of health that impacted care today? How? (Homelessness, low income, unemployed, alcoholism, drug addiction, transportation, low edu. Level, literacy, decrease access to med. care, alf, rehab)? @ -No Was there de-escalation of care discussed even if they declined (Discuss DNR or withdrawal of care, Hospice)? DNR status @ -No What co-morbidities impacted this encounter? (DM, HTN, Smoking, COPD, CAD, Cancer, CVA, ARF, Chemo, Hep., AIDS, mental health diagnosis, sleep apnea, morbid obesity)? @ -None Was patient admitted / discharged? Hospital course, mention meds given and route, prescriptions, significant lab abnormalities, going to OR and other pertinent info. @ -41-year-old male presenting with chief complaint of chronic neck and back pain. No red flag symptoms or new injury or trauma. Patient is given pain medication and instructed to follow-up with pain management and physical therapy, he has upcoming appointments for both this week. Follow-up with PCP. Report back to ER with any new or worsening symptoms. Discussed return parameters and answered all questions. Patient conveyed verbal understanding and agreed to the plan. I discussed this case in detail with my attending Dr. Mukherjee Undiagnosed new problem with uncertain prognosis? @ -No Drug Therapy requiring intensive monitoring for toxicity (Heparin, Nitro, Insulin, Cardizem)? @ -No Were any procedures done? @ -No Diagnosis/symptom? @ -Chronic back pain Acute, or Chronic, or Acute on Chronic? @ -Acute Uncomplicated (without systemic symptoms) or Complicated (systemic symptoms)? @ -Uncomplicated Side effects of treatment? @ -No Exacerbation, Progression, or Severe Exacerbation? @ -No Poses a threat to life or bodily function? How? (Chest pain, [place], [place], pneumonia, PE, COPD, DKA, ARF, appy, cholecystitis, CVA, Diverticulitis, Homicidal, Suicidal, threat to staff... and all critical care pts) @ -No Disposition Clinical Impression: Chronic back pain Disposition: HOME SELF-CARE Condition: Good Instructions (If sedation given, give patient instructions): Chronic Back Pain (DC) Additional Instructions: Follow-up with PCP and pain management. Report back to ER with any new or worsening symptoms. Is patient prescribed a controlled substance at d/c from ED?: No Referrals: Soheila Santacruz DO [Primary Care Provider] - 1-2 days Time of Disposition: 00:27
[2022-11-22 01:20] VITALS: BP 120/86; PULSE 79; RESP 16
[2022-11-22] MEDS ORDERED: LIDOCAINE 5% PATCH TOPICAL SCH (09:00)
== END 2022-11-22 01:20 | disposition home or self-care (01) ==
LOC: EC 23:22
DX: G89.29 Other chronic pain (principal); M54.9 Dorsalgia, unspecified; F17.200 Nicotine dependence, unspecified, uncomplicated; Z88.0 Allergy status to penicillin
CPT/HCPCS: 99283; 96372 ×2; J2360; J1885

== ENCOUNTER 2022-11-28 22:50 | Emergency (ER) | payer OTHER ==
[2022-11-28 23:12] VITALS: TEMP 98.3
[2022-11-29] MEDS ORDERED: DEXAMETHASONE SOD PHOSPHATE 10 MG/ML 1 ML VIAL IM STA (01:13)
[2022-11-29] MEDS ORDERED: HYDROmorphone 1 MG/ML 1 ML SYRINGE IM STA (01:13)
[2022-11-29] MEDS ORDERED: KETOROLAC 15 MG/ML 1 ML VIAL IM STA (01:13)
--- NOTE | 2022-11-29 01:15 | ED ---
Back Pain HPI - General Chief Complaint: Back Pain/Injury Stated Complaint: Left side back and neck pain Time Seen by Provider: 11/29/22 00:59 Source: patient Limitations: no limitations - History of Present Illness Initial Comments: 41-year-old male presenting with chief complaint of left-sided back and neck pain. Patient has history of chronic neck and back pain. He states that he has numbness shooting down the left leg. He denies any loss of bowel or bladder control or saddle paresthesia. No new injury or trauma. No changes in his pain. He states that his nerve block that was scheduled for Monday was canceled due to insurance issues. No fevers or chills. No chest pain or difficulty breathing. No abdominal pain, nausea, vomiting. - Related Data Home Medications Medication Instructions Recorded Confirmed Ibuprofen [Motrin Ib] 800 mg PO DIRECTED PRN 10/26/22 11/17/22 Previous Rx's Medication Instructions Recorded Cyclobenzaprine [Flexeril] 5 mg PO TID PRN #15 tablet 11/07/22 Lidocaine 5% Patch [Lidoderm 5% 1 patch TOPICAL DAILY PRN #7 patch 11/07/22 Patch] Acetaminophen Tab [Tylenol Tab] 1,000 mg PO Q6HR PRN #30 tablet 11/18/22 Lidocaine 5% Patch [Lidoderm 5% 1 patch TOPICAL DAILY PRN #7 patch 11/18/22 Patch] Naproxen [Naprosyn] 500 mg PO BID 30 Days #60 tablet 11/23/22 Allergies Allergy/AdvReac Type Severity Reaction Status Date / Time Penicillins Allergy Unknown Verified 11/28/22 23:12 Review of Systems ROS Statement: Those systems with pertinent positive or pertinent negative responses have been documented in the HPI. ROS Other: All systems not noted in ROS Statement are negative. Past Medical History Past Medical History: Pneumonia Additional Past Medical History / Comment(s): chronic back pain- worse after last tx History of Any Multi-Drug Resistant Organisms: None Reported Past Surgical History: Orthopedic Surgery Additional Past Surgical History / Comment(s): RT KNEE SURG. PAIN CLINIC PROC. Past Anesthesia/Blood Transfusion Reactions: No Reported Reaction Past Psychological History: Anxiety Smoking Status: Current every day smoker Past Alcohol Use History: None Reported Past Drug Use History: None Reported - Past Family History Mother Family Medical History: Liver Disease Additional Family Medical History / Comment(s): , liver failure from Hep C Father Family Medical History: Hypertension Additional Family Medical History / Comment(s): drinker General Exam Limitations: no limitations General appearance: alert, in no apparent distress Head exam: Present: atraumatic, normocephalic, normal inspection Eye exam: Present: normal appearance, EOMI Neck exam: Present: normal inspection, full ROM Respiratory exam: Present: normal lung sounds bilaterally. Absent: respiratory distress, wheezes, rales, rhonchi, stridor Cardiovascular Exam: Present: regular rate, normal rhythm, normal heart sounds. Absent: systolic murmur, diastolic murmur, rubs, gallop, clicks Back exam: Present: normal inspection, tenderness Neurological exam: Present: alert, oriented X3, CN II-XII intact Psychiatric exam: Present: normal affect, normal mood Skin exam: Present: warm, dry, intact, normal color. Absent: rash Course Vital Signs 11/28/22 11/29/22 23:08 01:44 Temperature 98.3 F Pulse Rate 88 79 Respiratory 20 18 Rate Blood Pressure 158/95 145/110 O2 Sat by Pulse 100 100 Oximetry Medical Decision Making - Medical Decision Making Was pt. sent in by a medical professional or institution (, PA, TECHNICAL PRODUCER, urgent care, hospital, or [place] [facility] facility...) When possible be specific @ -No Did you speak to anyone other than the patient for history (EMS, parent, family, police, friend...)? What history was obtained from this source @ -No Did you review nursing and triage notes (agree or disagree)? Why? @ -I reviewed and agree with nursing and triage notes Were old charts reviewed (outside hosp., previous admission, EMS record, old EKG, old radiological studies, urgent care reports/EKG's, [place] [facility] records)? Report findings @ -No old charts were reviewed Differential Diagnosis (chest pain, altered mental status, abdominal pain women, abdominal pain men, vaginal bleeding, weakness, fever, dyspnea, syncope, headache, dizziness, GI bleed, back pain, seizure, CVA, palpatations, mental health, musculoskeletal)? @ - [facility] Differential Back Pain: Strain, zoster, cauda equina syndrome, epidural abscess, vertebral osteomyelitis, discitis, fracture, subluxation, disc herniation, DJD, spinal stenosis, dissection, AAA, pancreatitis, peptic ulcer disease, pyelonephritis, kidney stone this is not meant to be an all-inclusive list. EKG interpreted by me (3pts min.). @ -As above X-rays interpreted by me (1pt min.). @ -None done CT interpreted by me (1pt min.). @ -None done U/S interpreted by me (1pt. min.). @ -None done What testing was considered but not performed or refused? (CT, X-rays, U/S, labs)? Why? @ -None What meds were considered but not given or refused? Why? @ -None Did you discuss the management of the patient with other professionals (professionals i.e. Dr., PA, TECHNICAL PRODUCER, lab, RT, psych nurse, social human services assistants, cat swamper, teacher, surveillance officer, mental health case manager)? Give summary @ -No Was smoking cessation discussed for >3mins.? @ -No Was critical care preformed (if so, how long)? @ -No Were there social determinants of health that impacted care today? How? (Homelessness, low income, unemployed, alcoholism, drug addiction, transportation, low edu. Level, literacy, decrease access to med. care, [facility], rehab)? @ -No Was there de-escalation of care discussed even if they declined (Discuss DNR or withdrawal of care, Hospice)? DNR status @ -No What co-morbidities impacted this encounter? (DM, HTN, Smoking, COPD, CAD, Cancer, CVA, ARF, Chemo, Hep., AIDS, mental health diagnosis, sleep apnea, morbid obesity)? @ -None Was patient admitted / discharged? Hospital course, mention meds given and route, prescriptions, significant lab abnormalities, going to OR and other pertinent info. @ -41-year-old male with history of chronic neck and back pain presenting with chief complaint of flareup of his chronic pain. No red flag symptoms. No new injury or trauma. Patient is given pain medication and instructed to follow-up with pain management. He is given a referral to orthopedic retail beauty specialist. Follow-up with PCP. Report back to ER with any new or worsening symptoms. Discussed return parameters and answered all questions. Patient conveyed verbal understanding and agreed to the plan. I discussed this case in detail with my attending Dr. Spann Undiagnosed new problem with uncertain prognosis? @ -No Drug Therapy requiring intensive monitoring for toxicity (Heparin, Nitro, Insulin, Cardizem)? @ -No Were any procedures done? @ -No Diagnosis/symptom? @ -Chronic back pain Acute, or Chronic, or Acute on Chronic? @ -Acute Uncomplicated (without systemic symptoms) or Complicated (systemic symptoms)? @ -Uncomplicated Side effects of treatment? @ -No Exacerbation, Progression, or Severe Exacerbation? @ -No Poses a threat to life or bodily function? How? (Chest pain, [place], [place], pneumonia, PE, COPD, DKA, ARF, appy, cholecystitis, CVA, Diverticulitis, Homicidal, S uicidal, threat to staff... and all critical care pts) @ -No Disposition Clinical Impression: Chronic back pain, Chronic neck pain Disposition: HOME SELF-CARE Condition: Good Instructions (If sedation given, give patient instructions): Chronic Pain (ED) Additional Instructions: Follow-up with pain management. Report back to ER if any new or worsening symptoms. Is patient prescribed a controlled substance at d/c from ED?: No Referrals: Nonstaff,Physician [Primary Care Provider] - 1-2 days Rafael Gay DO [Doctor of Osteopathic Medicine] - 1-2 days Time of Disposition: 01:15
[2022-11-29 01:46] VITALS: BP 145/110; PULSE 79; RESP 18
[2022-11-29] MEDS ORDERED: LIDOCAINE 5% PATCH TOPICAL SCH (09:00)
== END 2022-11-29 01:46 | disposition home or self-care (01) ==
LOC: EC 22:50
DX: G89.29 Other chronic pain (principal); M54.9 Dorsalgia, unspecified; M54.2 Cervicalgia; F17.200 Nicotine dependence, unspecified, uncomplicated; Z88.0 Allergy status to penicillin
CPT/HCPCS: 99283; 96372 ×3; J1100; J1170; J1885

== ENCOUNTER 2022-12-01 06:24 | Day surgery (SDC) | payer OTHER ==
[~2022-12-01 06:24] MED LIST changes: -LIDOCAINE 1% (10MG/ML) FOR IV START INTRADERMA PRN
[2022-12-01 06:57] VITALS: TEMP 97.8
[2022-12-01] MEDS ORDERED: TRIAMCINOLONE ACETONIDE 40 MG/ML 1 ML VIAL ONE (07:36)
[2022-12-01] MEDS ORDERED: MIDAZOLAM 2 MG/2 ML VIAL ONE (07:36)
[2022-12-01] MEDS ORDERED: ROPIVACAINE 5MG/ML 20ML VIAL ONE (07:36)
--- NOTE | 2022-12-01 07:52 | P.PCN ---
Description of Procedure: PREOPERATIVE DIAGNOSIS : 1- Lumbar spondylosis with Facet Arthropathy without myelopathy . 2- Lumber degenerative disc disease POSTOPERATIVE DIAGNOSIS: 1- Lumbar spondylosis with Facet Arthropathy without myelopathy . 2- Lumber degenerative disc disease PROCEDURE: Diagnostic bilateral L4 -5 , and L5-S1 medial branch block under fluoroscopy Physician: Deepali Harris MD ANESTHESIA: Local with 1% lidocaine; IV moderate conscious sedation with Versed 2 mg . EBL: Negligible COMPLICATION: None. PROCEDURE INDICATION: Chronic low back pain secondary to Facet arthropathy unres ponsive to conservative treatment. PROCEDURE DESCRIPTION: the patient was seen and identified in the preop holding area , risks and benefits and possible complications of the procedure and alternatives were discussed with the patient, and the patient agreed to proceed with the procedure and signed the consent. IV was started and vital signs monitored during the procedure and fluoroscopy was used to maximize the benefit and accuracy of the needle placement, sedation was given to decrease patient anxiety, patient was taken to the procedure room and placed in prone position vital signs monitored. The patient was brought into the procedure room and placed in prone position. Skin was prepped with Chloraprep and draped in a sterile manner. Lidocaine 1% was used to numb the skin up at the target points that were chosen as follows: at the L5-S1 level which corresponds to the dorsal ramus of L5 the target points were at the superior medial aspect of the sacral ala on each side of the spine on the AP view of fluoroscopy, and for the L3 and L4 medial branches the target points were the connection between the transverse process and the superior articular process of L4 and L5 respectively on the oblique views of fluoroscopy. I used 22-gauge 3-1/2 inch Quincke spinal needles for this procedure and after contacting bone at the target points mentioned above I inje cted 1 mL of a mixture of Kenalog 40 mg +5 MLS of Ropivacaine 0.5% PF . Patient tolerated procedure well. At the end of the procedure the needles removed and a bandage applied after the skin was cleaned the cleaning solution. patient was then taken to the recovery room in stable condition and monitored in the recovery room for 20-30 minutes and discharged home in stable condition after discharge criteria met . A copy of the needle placement picture was saved to the C-arm machine. Sedation time: 8865-8722
[2022-12-01] MEDS ORDERED: IV FLUID CONTINUATION 450 ML IV ONE (07:54)
[2022-12-01 07:56] VITALS: RESP 16
[2022-12-01 08:18] VITALS: BP 117/69; PULSE 67
--- NOTE | 2022-12-01 11:14 | FL ---
Intraoperative/procedural fluoroscopic services were provided for bilateral lumbar facet block. Total fluoroscopy time is 11.3 seconds with a total of 3 submitted images to PACS. Total DAP [id number] [id number] . Please see the operative note for further details.
== END 2022-12-01 08:22 | disposition home or self-care (01) ==
LOC: ORPAIN 06:24
PROVIDERS: ATTEND Anesthesiology
DX: M47.816 Spondylosis without myelopathy or radiculopathy, lumbar region (principal); M51.36 Other intervertebral disc degeneration, lumbar region; G89.29 Other chronic pain; Z88.0 Allergy status to penicillin
CPT/HCPCS: 64493; 64494 ×2; J2250; J3301; J2795; 99152

== ENCOUNTER 2023-12-11 16:19 | Emergency (ER) | payer OTHER ==
--- NOTE | 2023-12-11 17:04 | ED ---
General Adult HPI - General Chief complaint: Extremity Injury, Lower Stated complaint: R knee pain/L side back pain Time Seen by Provider: 12/11/23 16:27 Source: patient Mode of arrival: ambulatory Limitations: no limitations - History of Present Illness Initial comments: Dictation was produced using [employer] dictation software. please excuse any grammatical, word or spelling errors. Chief Complaint: 43-year-old male with right knee pain History of Present Illness: Patient is a 43-year-old male presents emergency room for atraumatic right knee pain. Patient has history of patella fracture. States that his knee has been sore. Has been trying to use knee braces with no resolve. Patient Nuys any trauma. No fever, chills or night sweats. The ROS documented in this emergency department record has been reviewed and confirmed by me. Those systems with pertinent positive or negative responses have been documented in the HPI. All other systems are other negative and/or noncontributory. - Related Data Home Medications Medication Instructions Recorded Confirmed Ibuprofen [Motrin Ib] 800 mg PO DIRECTED PRN 10/26/22 12/01/22 Previous Rx's Medication Instructions Recorded Cyclobenzaprine [Flexeril] 5 mg PO TID PRN #15 tablet 11/07/22 Lidocaine 5% Patch [Lidoderm 5% 1 patch TOPICAL DAILY PRN #7 patch 11/07/22 Patch] Acetaminophen Tab [Tylenol Tab] 1,000 mg PO Q6HR PRN #30 tablet 11/18/22 Lidocaine 5% Patch [Lidoderm 5% 1 patch TOPICAL DAILY PRN #7 patch 11/18/22 Patch] Naproxen [Naprosyn] 500 mg PO BID 30 Days #60 tablet 11/23/22 HYDROcodone/APAP 5-325MG [[place] 1 tab PO Q6HR PRN 3 Days #12 tab 12/11/23 5-325] Allergies Allergy/AdvReac Type Severity Reaction Status Date / Time Penicillins Allergy Unknown Verified 12/01/22 06:47 Review of Systems ROS Statement: Those systems with pertinent positive or pertinent negative responses have been documented in the HPI. ROS Other: All systems not noted in ROS Statement are negative. Past Medical History Past Medical History: Pneumonia Additional Past Medical History / Comment(s): chronic back pain- worse after last tx History of Any Multi-Drug Resistant Organisms: None Reported Past Surgical History: Orthopedic Surgery Additional Past Surgical History / Comment(s): RT KNEE SURG. PAIN CLINIC PROC. Past Anesthesia/Blood Transfusion Reactions: No Reported Reaction Past Psychological History: Anxiety Smoking Status: Current every day smoker Past Alcohol Use History: None Reported Past Drug Use History: None Reported - Past Family History Mother Family Medical History: Liver Disease Additional Family Medical History / Comment(s): , liver failure from Hep C Father Family Medical History: Hypertension Additional Family Medical History / Comment(s): drinker General Exam - General Exam Comments Initial Comments: PHYSICAL EXAM: General Impression: Alert and oriented x3, not in acute distress HEENT: Normocephalic atraumatic, extra-ocular movements intact, pupils equal and reactive to light bilaterally, mucous membranes moist. Cardiovascular: Heart regular rate and rhythm Chest: Able to complete full sentences, no retractions, no tachypnea Abdomen: abdomen soft, non-tender, non-distended, no organomegaly Musculoskeletal: Pulses present and equal in all extremities, no peripheral edema Motor: no focal deficits noted Neurological: CN II-XII grossly intact, no focal motor or sensory deficits noted Skin: Intact with no visualized rashes Psych: Normal affect and mood Limitations: no limitations Course Vital Signs 12/11/23 16:23 Temperature 97.5 F L Pulse Rate 92 Respiratory 20 Rate Blood Pressure 129/91 O2 Sat by Pulse 98 Oximetry Medical Decision Making - Medical Decision Making Was pt. sent in by a medical professional or institution ([facility] Esqueda, [employer], urgent care, hospital, or retirement...) When possible be specific @ -No Did you speak to anyone other than the patient for history (EMS, parent, family, police, friend...)? What history was obtained from this source @ -No Did you review nursing and triage notes (agree or disagree)? Why? @ -I reviewed and agree with nursing and triage notes Were old charts reviewed (outside hosp., previous admission, EMS record, old EKG, old radiological studies, urgent care reports/EKG's, retirement records)? Report findings @ -No old charts were reviewed Differential Diagnosis (chest pain, altered mental status, abdominal pain women, abdominal pain men, vaginal bleeding, musculoskeletal, weakness, fever, dyspnea, syncope, headache, dizziness, GI bleed, back pain, seizure, CVA, palpatations, mental health)? @ -Fracture, knee effusion, knee strain EKG interpreted by me (3pts min.). @ -None done X-rays interpreted by me (1pt min.). @ -Knee x-ray shows no acute processes CT interpreted by me (1pt min.). @ -None done U/S interpreted by me (1pt. min.). @ -None done What testing was considered but not performed or refused? (CT, X-rays, U/S, labs)? Why? @ -None What meds were considered but not given or refused? Why? @ -None Was smoking cessation discussed for >3mins.? @ -No Were there social determinants of health that impacted care today? How? (Homelessness, low income, unemployed, alcoholism, drug addiction, transportation, low edu. Level, literacy, decrease access to med. care, long-term, rehab)? @ -No Was there de-escalation of care discussed even if they declined (Discuss DNR or withdrawal of care, Hospice)? DNR status @ -No What co-morbidities impacted this encounter? (DM, HTN, Smoking, COPD, CAD, Cancer, CVA, ARF, Chemo, Hep., AIDS, mental health diagnosis, sleep apnea, morbid obesity)? @ -None Was patient admitted / discharged? Hospital course, mention meds given and route, prescriptions, significant lab abnormalities, going to OR and other pertinent info. @ - 43-year-old male presents with knee pain. He has history of patellar fracture repair signs stable. X-rays unremarkable. Patient discharged Did you discuss the management of the patient with other professionals (professionals i.e. , PA, [employer], lab, RT, psych nurse, manager social services, supervisor bridges and buildings, teacher, tactical intelligence officer, bottle caser)? Give summary @ -No Was critical care preformed (if so, how long)? @ -No Undiagnosed new problem with uncertain prognosis? @ -No Drug Therapy requiring intensive monitoring for toxicity (Heparin, Nitro, Insulin, Cardizem)? @ -No Were any procedures done? @ -No Diagnosis/symptom? Acute, or Chronic, or Acute on Chronic? Uncomplicated (without systemic symptoms) or Complicated (systemic symptoms)? @ -Pain of the knee Side effects of treatment? @ -No Exacerbation, Progression, or Severe Exacerbation? @ -No Poses a threat to life or bodily function? How? (Chest pain, [place], [place], pneumonia, PE, COPD, DKA, ARF, appy, cholecystitis, CVA, Diverticulitis, Homicidal, Suicidal, threat to staff... and all critical care pts) @ -yes Disposition Clinical Impression: Knee pain Disposition: HOME SELF-CARE Condition: Good Instructions (If sedation given, give patient instructions): Knee Pain (ED) Prescriptions: HYDROcodone/APAP 5-325MG [[place] 5-325] 1 tab PO Q6HR PRN 3 Days #12 tab PRN Reason: Severe Pain Is patient prescribed a controlled substance at d/c from ED?: Yes If prescribed controlled substance>3 days was MAPS reviewed?: Prescribed <3 Days Referrals: Soheila Santacruz DO [Primary Care Provider] - 1-2 days Time of Disposition: 18:45
--- NOTE | 2023-12-11 18:02 | XR ---
EXAMINATION TYPE: XR knee 4V RT DATE OF EXAM: 12/11/2023 COMPARISON: 06/14/2022 HISTORY: Knee pain TECHNIQUE: 4 view right knee FINDINGS: No acute fractures evident. Old patellar repair is evident. No joint effusion is evident. S ome soft tissue swelling over the suprapatellar region may be present. Joint spaces appear preserved. Follow up exams can be performed 7-10 days from acute trauma for continued pain. IMPRESSION: 1. Suggestion of mild soft tissue swelling suprapatellar soft tissues. No underlying joint effusion evident. 2. No acute osseous abnormality radiographically apparent.
[2023-12-11] MEDS: HYDROcodone/APAP 5-325MG 1 EACH TAB PO STA (18:40)
[2023-12-11 18:51] VITALS: BP 132/97; PULSE 71; RESP 18; TEMP 97.6
== END 2023-12-11 18:51 | disposition home or self-care (01) ==
LOC: EC 16:19
DX: M25.561 Pain in right knee (principal); F17.200 Nicotine dependence, unspecified, uncomplicated
CPT/HCPCS: 99283

== ENCOUNTER 2024-02-25 18:38 | Emergency (ER) | payer OTHER ==
[2024-02-25 18:51] VITALS: TEMP 98
--- NOTE | 2024-02-25 19:41 | ED ---
General Adult HPI - General Chief complaint: Back Pain/Injury Stated complaint: back pain/groin pain/L leg numbness Time Seen by Provider: 02/25/24 18:52 Source: patient, RN notes reviewed Mode of arrival: ambulatory Limitations: no limitations - History of Present Illness Initial comments: 43-year-old male presents to the emergency department for evaluation of low back pain. He reports that the pain radiates down his left leg. He does report a history of chronic back pain. He states that he had improvement in his symptoms for multiple months but started experiencing pain again over the past 1 to 2 weeks. He denies any loss of bowel or bladder function, saddle anesthesia, urinary retention, fever, chills. He denies any trauma. He reports taking gabapentin but no other medications to assist with the pain. - Related Data Home Medications Medication Instructions Recorded Confirmed Ibuprofen [Motrin Ib] 800 mg PO DIRECTED PRN 10/26/22 12/01/22 Previous Rx's Medication Instructions Recorded Cyclobenzaprine [Flexeril] 5 mg PO TID PRN #15 tablet 11/07/22 Lidocaine 5% Patch [Lidoderm 5% 1 patch TOPICAL DAILY PRN #7 patch 11/07/22 Patch] Acetaminophen Tab [Tylenol Tab] 1,000 mg PO Q6HR PRN #30 tablet 11/18/22 Lidocaine 5% Patch [Lidoderm 5% 1 patch TOPICAL DAILY PRN #7 patch 11/18/22 Patch] Naproxen [Naprosyn] 500 mg PO BID 30 Days #60 tablet 11/23/22 HYDROcodone/APAP 5-325MG [[place] 1 tab PO Q6HR PRN 3 Days #12 tab 12/11/23 5-325] Allergies Allergy/AdvReac Type Severity Reaction Status Date / Time Penicillins Allergy Unknown Verified 02/25/24 18:51 Review of Systems ROS Statement: Those systems with pertinent positive or pertinent negative responses have been documented in the HPI. ROS Other: All systems not noted in ROS Statement are negative. Past Medical History Past Medical History: Pneumonia Additional Past Medical History / Comment(s): chronic back pain- worse after last tx History of Any Multi-Drug Resistant Organisms: None Reported Past Surgical History: Orthopedic Surgery Additional Past Surgical History / Comment(s): RT KNEE SURG. PAIN CLINIC PROC. Past Anesthesia/Blood Transfusion Reactions: No Reported Reaction Past Psychological History: Anxiety Smoking Status: Current every day smoker Past Alcohol Use History: None Reported Past Drug Use History: None Reported - Past Family History Mother Family Medical History: Liver Disease Additional Family Medical History / Comment(s): , liver failure from Hep C Father Family Medical History: Hypertension Additional Family Medical History / Comment(s): drinker General Exam Limitations: no limitations General appearance: alert, in no apparent distress Head exam: Present: atraumatic, normocephalic, normal inspection Eye exam: Present: normal appearance, PERRL, EOMI. Absent: scleral icterus, conjunctival injection, periorbital swelling Respiratory exam: Present: normal lung sounds bilaterally. Absent: respiratory distress, wheezes, rales, rhonchi, stridor Cardiovascular Exam: Present: regular rate, normal rhythm, normal heart sounds. Absent: systolic murmur, diastolic murmur, rubs, gallop, clicks GI/Abdominal exam: Present: soft. Absent: distended, tenderness, guarding, rebound, rigid Extremities exam: Present: normal inspection, full ROM, normal capillary refill. Absent: tenderness, pedal edema, joint swelling, calf tenderness Back exam: Present: normal inspection, full ROM Neurological exam: Present: alert, oriented X3, CN II-XII intact Psychiatric exam: Present: normal affect, normal mood Skin exam: Present: warm, dry, intact, normal color. Absent: rash Course Vital Signs 02/25/24 02/25/24 18:47 20:03 Temperature 98 F Pulse Rate 89 78 Respiratory 20 16 Rate Blood Pressure 161/89 127/90 O2 Sat by Pulse 99 100 Oximetry Medical Decision Making - Medical Decision Making Was pt. sent in by a medical professional or institution (, PA, [facility], urgent care, hospital, or [place] health [facility] facility...) When possible be specific @ -No Did you speak to anyone other than the patient for history (EMS, parent, family, police, friend...)? What history was obtained from this source @ -No Did you review nursing and triage notes (agree or disagree)? Why? @ -I reviewed and agree with nursing and triage notes Were old charts reviewed (outside hosp., previous admission, EMS record, old EKG, old radiological studies, urgent care reports/EKG's, [place] health [facility] facility records)? Report findings @ -No old charts were reviewed Differential Diagnosis (chest pain, altered mental status, abdominal pain women, abdominal pain men, vaginal bleeding, weakness, fever, dyspnea, syncope, headache, dizziness, GI bleed, back pain, seizure, CVA, palpatations, mental health, musculoskeletal)? @ -Differential Back Pain: Strain, zoster, cauda equina syndrome, epidural abscess, vertebral osteomyelitis, discitis, fracture, subluxation, disc herniation, DJD, spinal stenosis, dissection, AAA, pancreatitis, peptic ulcer disease, pyelonephritis, kidney stone, this is not meant to be an all-inclusive list. EKG interpreted by me (3pts min.). @ -None X-rays interpreted by me (1pt min.). @ -None done CT interpreted by me (1pt min.). @ -None done U/S interpreted by me (1pt. min.). @ -None done What testing was considered but not performed or refused? (CT, X-rays, U/S, labs)? Why? @ -Imaging considered, patient has a history of chronic back pain and no red flag symptoms or trauma at this time What meds were considered but not given or refused? Why? @ -None Did you discuss the management of the patient with other professionals (professionals i.e. , PA, HRBP, lab, RT, psych nurse, social services specialist, journalism intern, teacher, workplace rehabilitation officer, family service caseworker)? Give summary @ -No Was smoking cessation discussed for >3mins.? @ -No Was critical care preformed (if so, how long)? @ -No Were there social determinants of health that impacted care today? How? (Homelessness, low income, unemployed, alcoholism, drug addiction, [place] sportation, low edu. Level, literacy, decrease access to med. care, half-way, rehab)? @ -No Was there de-escalation of care discussed even if they declined (Discuss DNR or withdrawal of care, Hospice)? DNR status @ -No What co-morbidities impacted this encounter? (DM, HTN, Smoking, COPD, CAD, Cancer, CVA, ARF, Chemo, Hep., AIDS, mental health diagnosis, sleep apnea, morbid obesity)? @ -None Was patient admitted / discharged? Hospital course, mention meds given and route, prescriptions, significant lab abnormalities, going to OR and other pertinent info. @ -Discharge. Patient presented to the emergency department for evaluation of low back pain radiating down the left leg. He does report a history of chronic back pain. Patient has not had any new trauma and does not have any red flag symptoms at this time and therefore will not undergo any new imaging today. Patient will be provided medication for pain control. He is understanding and agreeable with this plan. He is to schedule a follow-up with his primary care provider. Patient stable at time of discharge. Case discussed with Dr. Leonard. Undiagnosed new problem with uncertain prognosis? @ -No Drug Therapy requiring intensive monitoring for toxicity (Heparin, Nitro, Insulin, Cardizem)? @ -No Were any procedures done? @ -No Diagnosis/symptom? @ -Back pain Acute, or Chronic, or Acute on Chronic? @ -Acute on chronic Uncomplicated (without systemic symptoms) or Complicated (systemic symptoms)? @ -Uncomplicated Side effects of treatment? @ -No Exacerbation, Progression, or Severe Exacerbation? @ -No Poses a threat to life or bodily function? How? (Chest pain, [place], [place], pneumonia, PE, COPD, DKA, ARF, appy, cholecystitis, CVA, Diverticulitis, Homicidal, Suicidal, threat to staff... and all critical care pts) @ -No Disposition Clinical Impression: Chronic back pain, Lumbar radiculopathy Disposition: HOME SELF-CARE Condition: Stable Instructions (If sedation given, give patient instructions): Lumbar Radiculopathy (ED) Additional Instructions: Please follow up with your primary care provider. Return to the emergency department for new or worsening symptoms. Is patient prescribed a controlled substance at d/c from ED?: No Referrals: Soheila Santacruz DO [Primary Care Provider] - 1-2 days
[2024-02-25] MEDS: LIDOCAINE 4% PATCH TOPICAL ONE (19:59)
[2024-02-25] MEDS: KETOROLAC 15 MG/ML 1 ML VIAL IM STA (20:00)
[2024-02-25] MEDS: MORPHINE SULFATE 4 MG/ML SYRINGE IM STA (20:01)
[2024-02-25 20:06] VITALS: BP 127/90; PULSE 78; RESP 16
== END 2024-02-25 20:03 | disposition home or self-care (01) ==
LOC: EC 18:38
DX: G89.29 Other chronic pain (principal); M54.16 Radiculopathy, lumbar region; F17.200 Nicotine dependence, unspecified, uncomplicated; Z88.0 Allergy status to penicillin
CPT/HCPCS: 99283; J2270; J1885

== ENCOUNTER 2024-03-17 07:28 | Emergency (ER) | payer OTHER ==
[2024-03-17] MEDS: HYDROmorphone 1 MG/ML 1 ML SYRINGE IM STA (07:55)
--- NOTE | 2024-03-17 07:55 | ED ---
General Adult HPI - General Chief complaint: Back Pain/Injury Stated complaint: Back pain Time Seen by Provider: 03/17/24 07:40 Source: patient, RN notes reviewed Mode of arrival: ambulatory Limitations: no limitations - History of Present Illness Initial comments: Patient is a pleasant 43-year-old male present to the emergency department with concerns for low back pain. Patient does have chronic low back pain, symptoms have been worse over the past month. Patient states discomfort sometimes radiates towards the left leg. No fever. No weakness or loss of sensation. No incontinence or retention of bowel or bladder. Patient has an appointment with his back doctor in a couple of weeks. - Related Data Home Medications Medication Instructions Recorded Confirmed Ibuprofen [Motrin Ib] 800 mg PO DIRECTED PRN 10/26/22 12/01/22 Previous Rx's Medication Instructions Recorded Cyclobenzaprine [Flexeril] 5 mg PO TID PRN #15 tablet 11/07/22 Lidocaine 5% Patch [Lidoderm 5% 1 patch TOPICAL DAILY PRN #7 patch 11/07/22 Patch] Acetaminophen Tab [Tylenol Tab] 1,000 mg PO Q6HR PRN #30 tablet 11/18/22 Lidocaine 5% Patch [Lidoderm 5% 1 patch TOPICAL DAILY PRN #7 patch 11/18/22 Patch] Naproxen [Naprosyn] 500 mg PO BID 30 Days #60 tablet 11/23/22 HYDROcodone/APAP 5-325MG [[place] 1 tab PO Q6HR PRN 3 Days #12 tab 12/11/23 5-325] predniSONE [Deltasone] 20 mg PO BID #10 tab 03/17/24 Allergies Allergy/AdvReac Type Severity Reaction Status Date / Time Penicillins Allergy Unknown Verified 03/17/24 07:31 Review of Systems ROS Statement: Those systems with pertinent positive or pertinent negative responses have been documented in the HPI. ROS Other: All systems not noted in ROS Statement are negative. Constitutional: Denies: fever Eyes: Denies: eye pain ENT: Denies: ear pain Respiratory: Denies: cough, dyspnea Cardiovascular: Denies: chest pain Musculoskeletal: Reports: as per HPI, back pain Neurological: Denies: weakness Past Medical History Past Medical History: Pneumonia Additional Past Medical History / Comment(s): chronic back pain- worse after last tx History of Any Multi-Drug Resistant Organisms: None Reported Past Surgical History: Orthopedic Surgery Additional Past Surgical History / Comment(s): RT KNEE SURG. PAIN CLINIC PROC. Past Anesthesia/Blood Transfusion Reactions: No Reported Reaction Past Psychological History: Anxiety Smoking Status: Current every day smoker Past Alcohol Use History: None Reported Past Drug Use History: None Reported - Past Family History Mother Family Medical History: Liver Disease Additional Family Medical History / Comment(s): , liver failure from Hep C Father Family Medical History: Hypertension Additional Family Medical History / Comment(s): drinker General Exam Limitations: no limitations General appearance: alert, in no apparent distress Head exam: Present: normocephalic Eye exam: Present: normal appearance Neck exam: Present: normal inspection Respiratory exam: Present: normal lung sounds bilaterally Cardiovascular Exam: Present: regular rate, normal rhythm Expanded Peripheral pulses: 2+: Posterior Tibialis (R), Posterior Tibialis (L) GI/Abdominal exam: Present: soft. Absent: tenderness, pulsatile mass Extremities exam: Present: normal inspection Back exam: Present: normal inspection Neurological exam: Absent: motor sensory deficit Expanded Sensory exam: Lower Extremity Light Touch: Normal Motor strength exam: RLE: 5, LLE: 5 Psychiatric exam: Present: normal affect, normal mood Course Vital Signs 03/17/24 07:30 Temperature 98.2 F Pulse Rate 88 Respiratory 20 Rate Blood Pressure 149/100 O2 Sat by Pulse 99 Oximetry Medical Decision Making - Medical Decision Making Was pt. sent in by a medical professional or institution (Dr. PA, OCEAN LIFEGUARD, urgent care, hospital, or halfway...) When possible be specific @ -No Did you speak to anyone other than the patient for history (EMS, parent, family, police, friend...)? What history was obtained from this source @ -No Did you review nursing and triage notes (agree or disagree)? Why? @ -I reviewed and agree with nursing and triage notes Were old charts reviewed (outside hosp., previous admission, EMS record, old EKG, old radiological studies, urgent care reports/EKG's, halfway records)? Report findings @ -Multiple previous charts reviewed, including CT scan from 2021 Differential Diagnosis (chest pain, altered mental status, abdominal pain women, abdominal pain men, vaginal bleeding, weakness, fever, dyspnea, syncope, headache, dizziness, GI bleed, back pain, seizure, CVA, palpatations, mental health, musculoskeletal)? @ -Differential Back Pain: Strain, zoster, cauda equina syndrome, epidural abscess, vertebral osteomyelitis, discitis, fracture, subluxation, disc herniation, DJD, spinal stenosis, dissection, AAA, pancreatitis, peptic ulcer disease, pyelonephritis, kidney stone, this is not meant to be an all-inclusive list. EKG interpreted by me (3pts min.). @ -As above X-rays interpreted by me (1pt min.). @ -None done CT interpreted by me (1pt min.). @ -None done U/S interpreted by me (1pt. min.). @ -None done What testing was considered but not performed or refused? (CT, X-rays, U/S, labs)? Why? @ -Considered imaging however patient has a chronic problem with previous imaging done What meds were considered but not given or refused? Why? @ -None Did you discuss the management of the patient with other professionals (professionals i.e. , PA, OCEAN LIFEGUARD, lab, RT, psych nurse, social science research assistant, retail loss prevention investigator, teacher, geospatial program management officer, rn case mgr)? Give summary @ -No Was smoking cessation discussed for >3mins.? @ -No Was critical care preformed (if so, how long)? @ -No Were there social determinants of health that impacted care today? How? (Homelessness, low income, unemployed, alcoholism, drug addiction, transportation, low edu. Level, literacy, decrease access to med. care, [facility], r ehab)? @ -No Was there de-escalation of care discussed even if they declined (Discuss DNR or withdrawal of care, Hospice)? DNR status @ -No What co-morbidities impacted this encounter? (DM, HTN, Smoking, COPD, CAD, Cancer, CVA, ARF, Chemo, Hep., AIDS, mental health diagnosis, sleep apnea, morbid obesity)? @ -History of chronic back pain Was patient admitted / discharged? Hospital course, mention meds given and route, prescriptions, significant lab abnormalities, going to OR and other pertinent info. @ -Patient presents with back pain similar to previous. No red flags. Patient will be discharged with pain injection and prescription for steroids. Patient updated. Patient recommended follow-up. Undiagnosed new problem with uncertain prognosis? @ -No Drug Therapy requiring intensive monitoring for toxicity (Heparin, Nitro, Insulin, Cardizem)? @ -No Were any procedures done? @ -No Diagnosis/symptom? @ -Low back pain Acute, or Chronic, or Acute on Chronic? @ -Acute on chronic Uncomplicated (without systemic symptoms) or Complicated (systemic symptoms)? @ -Default Side effects of treatment? @ -No Exacerbation, Progression, or Severe Exacerbation? @ -No Poses a threat to life or bodily function? How? (Chest pain, [place], [place], pneumonia, PE, COPD, DKA, ARF, appy, cholecystitis, CVA, Diverticulitis, Homicidal, Suicidal, threat to staff... and all critical care pts) @ -No Disposition Clinical Impression: Back pain Disposition: HOME SELF-CARE Condition: Stable Instructions (If sedation given, give patient instructions): Back Pain (ED) Additional Instructions: Please do follow-up with your primary care physician beginning of the week. Please also follow-up with your back doctor as planned. Consider physical therapy. Return for increased pain, leg weakness, loss of control of bowel or bladder, fever, worsening symptoms or other concerns. Prescription has been sent to pharmacy. Prescriptions: predniSONE [Deltasone] 20 mg PO BID #10 tab Is patient prescribed a controlled substance at d/c from ED?: No Referrals: Soheila Santacurz DO [Primary Care Provider] - 1-2 days Time of Disposition: 07:54
[2024-03-17 08:08] VITALS: BP 140/90; PULSE 68; RESP 18; TEMP 97.9
== END 2024-03-17 08:12 | disposition home or self-care (01) ==
LOC: EC 07:28
DX: M54.50 Low back pain, unspecified (principal); F17.200 Nicotine dependence, unspecified, uncomplicated; Z88.0 Allergy status to penicillin
CPT/HCPCS: 99283; 96372; J1171

== ENCOUNTER 2024-03-25 07:32 | Emergency (ER) | payer OTHER ==
--- NOTE | 2024-03-25 07:55 | ED ---
Back Pain HPI - General Chief Complaint: Back Pain/Injury Stated Complaint: Back pain Time Seen by Provider: 03/25/24 07:42 Source: patient, RN notes reviewed Limitations: no limitations - History of Present Illness Initial Comments: 43-year-old male presents emergency department complaint of low back pain. This has been an ongoing issue. He is currently on gabapentin. He is awaiting an appointment the with orthopedic spine. Patient states she has had no new injuries. He has pain in his low back radiates down his leg denies any bowel, bladder incontinence retention no saddle anesthesias. Patient states that some days are better than others. - Related Data Home Medications Medication Instructions Recorded Confirmed Ibuprofen [Motrin Ib] 800 mg PO DIRECTED PRN 10/26/22 12/01/22 Previous Rx's Medication Instructions Recorded Cyclobenzaprine [Flexeril] 5 mg PO TID PRN #15 tablet 11/07/22 Lidocaine 5% Patch [Lidoderm 5% 1 patch TOPICAL DAILY PRN #7 patch 11/07/22 Patch] Acetaminophen Tab [Tylenol Tab] 1,000 mg PO Q6HR PRN #30 tablet 11/18/22 Lidocaine 5% Patch [Lidoderm 5% 1 patch TOPICAL DAILY PRN #7 patch 11/18/22 Patch] Naproxen [Naprosyn] 500 mg PO BID 30 Days #60 tablet 11/23/22 HYDROcodone/APAP 5-325MG [[place] 1 tab PO Q6HR PRN 3 Days #12 tab 12/11/23 5-325] predniSONE [Deltasone] 20 mg PO BID #10 tab 03/17/24 Allergies Allergy/AdvReac Type Severity Reaction Status Date / Time Penicillins Allergy Unknown Verified 03/25/24 07:38 Review of Systems ROS Statement: Those systems with pertinent positive or pertinent negative responses have been documented in the HPI. ROS Other: All systems not noted in ROS Statement are negative. Past Medical History Past Medical History: Pneumonia Additional Past Medical History / Comment(s): chronic back pain- worse after last tx History of Any Multi-Drug Resistant Organisms: None Reported Past Surgical History: Orthopedic Surgery Additional Past Surgical History / Comment(s): RT KNEE SURG. PAIN CLINIC PROC. Past Anesthesia/Blood Transfusion Reactions: No Reported Reaction Past Psychological History: Anxiety Smoking Status: Current every day smoker Past Alcohol Use History: None Reported Past Drug Use History: None Reported - Past Family History Mother Family Medical History: Liver Disease Additional Family Medical History / Comment(s): , liver failure from Hep C Father Family Medical History: Hypertension Additional Family Medical History / Comment(s): drinker General Exam Limitations: no limitations General appearance: alert, in no apparent distress Head exam: Present: atraumatic, normocephalic, normal inspection Eye exam: Present: normal appearance, PERRL, EOMI. Absent: scleral icterus, conjunctival injection, periorbital swelling ENT exam: Present: normal exam, mucous membranes moist Neck exam: Present: normal inspection, full ROM. Absent: tenderness, meningismus, lymphadenopathy Respiratory exam: Present: normal lung sounds bilaterally. Absent: respiratory distress, wheezes, rales, rhonchi, stridor Cardiovascular Exam: Present: regular rate, normal rhythm, normal heart sounds. Absent: systolic murmur, diastolic murmur, rubs, gallop, clicks Extremities exam: Present: normal inspection, full ROM, normal capillary refill. Absent: tenderness, pedal edema, joint swelling, calf tenderness Back exam: Present: full ROM, tenderness, paraspinal tenderness. Absent: CVA tenderness (R), vertebral tenderness Neurological exam: Present: reflexes normal. Absent: motor sensory deficit Course Vital Signs 03/25/24 07:36 Temperature 97.6 F Pulse Rate 87 Respiratory 20 Rate Blood Pressure 130/87 O2 Sat by Pulse 100 Oximetry Medical Decision Making - Medical Decision Making Was pt. sent in by a medical professional or institution (, PA, QUILL MACHINE OPERATOR, urgent care, hospital, or jail...) When possible be specific @ -No Did you speak to anyone other than the patient for history (EMS, parent, family, police, friend...)? What history was obtained from this source @ -No Did you review nursing and triage notes (agree or disagree)? Why? @ -I reviewed and agree with nursing and triage notes Were old charts reviewed (outside hosp., previous admission, EMS record, old EKG, old radiological studies, urgent care reports/EKG's, jail records)? Report findings @ -No old charts were reviewed Differential Diagnosis (chest pain, altered mental status, abdominal pain women, abdominal pain men, vaginal bleeding, weakness, fever, dyspnea, syncope, headache, dizziness, GI bleed, back pain, seizure, CVA, palpatations, mental health, musculoskeletal)? @ -Differential Back Pain: Strain, zoster, cauda equina syndrome, epidural abscess, vertebral osteomyelitis, discitis, fracture, subluxation, disc herniation, DJD, spinal stenosis, dissection, AAA, pancreatitis, peptic ulcer disease, pyelonephritis, kidney stone, this is not meant to be an all-inclusive list. EKG interpreted by me (3pts min.). @None X-rays interpreted by me (1pt min.). @ -None done CT interpreted by me (1pt min.). @ -None done U/S interpreted by me (1pt. min.). @ -None done What testing was considered but not performed or refused? (CT, X-rays, U/S, labs)? Why? @ -Consider imaging of back including x-ray, CT, MRI patient's had these images in the past without acute injuries now. What meds were considered but not given or refused? Why? @ -None Did you discuss the management of the patient with other professionals (professionals i.e. , PA, QUILL MACHINE OPERATOR, lab, RT, psych nurse, professor of social work, sports statistician, teacher, natural resource officer, case finisher)? Give summary @ -No Was smoking cessation discussed for >3mins.? @ -No Was critical care preformed (if so, how long)? @ -No Were there social determinants of health that impacted care today? How? (Homelessness, low income, unemployed, alcoholism, drug addiction, transportation, low edu. Level, literacy, decrease access to med. care, half-way, rehab)? @ -No Was there de-escalation of care discussed even if they declined (Discuss DNR or withdrawal of care, Hospice)? DNR status @ -No What co-morbidities impacted this encounter? (DM, HTN, Smoking, COPD, CAD, Cancer, CVA, ARF, Chemo, Hep., AIDS, mental health diagnosis, sleep apnea, mo rbid obesity)? @ -None Was patient admitted / discharged? Hospital course, mention meds given and route, prescriptions, significant lab abnormalities, going to OR and other pertinent info. @ -Discharge patient has acute on chronic back pain without red flag symptoms. Patient has a follow-up point with orthopedic spine. Patient discharged in stable condition. Undiagnosed new problem with uncertain prognosis? @ -No Drug Therapy requiring intensive monitoring for toxicity (Heparin, Nitro, Insulin, Cardizem)? @ -No Were any procedures done? @ -No Diagnosis/symptom? @ -Back pain Acute, or Chronic, or Acute on Chronic? @ -[Acute on chronic Uncomplicated (without systemic symptoms) or Complicated (systemic symptoms)? @ -Uncomplicated Side effects of treatment? @ -No Exacerbation, Progression, or Severe Exacerbation? @ -No Poses a threat to life or bodily function? How? (Chest pain, [place], [place], pneumonia, PE, COPD, DKA, ARF, appy, cholecystitis, CVA, Diverticulitis, Homicidal, Suicidal, threat to staff... and all critical care pts) @ -No Disposition Clinical Impression: Chronic back pain, Lumbar radiculopathy, Back pain Disposition: HOME SELF-CARE Condition: Stable Instructions (If sedation given, give patient instructions): Acute Low Back Pain (ED) Additional Instructions: Please return to the Emergency Department if symptoms worsen or any other concerns. Is patient prescribed a controlled substance at d/c from ED?: No Referrals: Soheila Santacruz DO [Primary Care Provider] - 1-2 days Time of Disposition: 07:55
[2024-03-25] MEDS: ACET/COD 300 MG/30 MG STARTER PACK 6 TAB BTL PO STA (08:07)
[2024-03-25] MEDS: HYDROmorphone 1 MG/ML 1 ML SYRINGE IM STA (08:07)
[2024-03-25 08:22] VITALS: BP 136/68; PULSE 76; RESP 18; TEMP 98.1
== END 2024-03-25 08:22 | disposition home or self-care (01) ==
LOC: EC 07:32
DX: M54.16 Radiculopathy, lumbar region (principal); F17.200 Nicotine dependence, unspecified, uncomplicated; Z88.0 Allergy status to penicillin
CPT/HCPCS: 99283; 96372; J1171

== ENCOUNTER 2024-04-07 18:47 | Emergency (ER) | payer OTHER ==
--- NOTE | 2024-04-07 19:22 | ED ---
General Adult HPI - General Stated complaint: Back/L leg pain Time Seen by Provider: 04/07/24 19:22 Source: patient Mode of arrival: ambulatory Limitations: no limitations - History of Present Illness Initial comments: 43-year-old male presenting with chief complaint of back pain. Patient is having left-sided back pain which is consistent with his chronic back pain. He has had no new injury or trauma. No loss of bowel or bladder control or saddle paresthesia. No abdominal pain, nausea, vomiting, fever, chills, urinary symptoms. - Related Data Home Medications Medication Instructions Recorded Confirmed Ibuprofen [Motrin Ib] 800 mg PO DIRECTED PRN 10/26/22 12/01/22 Previous Rx's Medication Instructions Recorded Cyclobenzaprine [Flexeril] 5 mg PO TID PRN #15 tablet 11/07/22 Lidocaine 5% Patch [Lidoderm 5% 1 patch TOPICAL DAILY PRN #7 patch 11/07/22 Patch] Acetaminophen Tab [Tylenol Tab] 1,000 mg PO Q6HR PRN #30 tablet 11/18/22 Lidocaine 5% Patch [Lidoderm 5% 1 patch TOPICAL DAILY PRN #7 patch 11/18/22 Patch] Naproxen [Naprosyn] 500 mg PO BID 30 Days #60 tablet 11/23/22 HYDROcodone/APAP 5-325MG [[place] 1 tab PO Q6HR PRN 3 Days #12 tab 12/11/23 5-325] predniSONE [Deltasone] 20 mg PO BID #10 tab 03/17/24 Allergies Allergy/AdvReac Type Severity Reaction Status Date / Time Penicillins Allergy Unknown Verified 04/07/24 19:23 Review of Systems ROS Statement: Those systems with pertinent positive or pertinent negative responses have been documented in the HPI. ROS Other: All systems not noted in ROS Statement are negative. Past Medical History Past Medical History: Pneumonia Additional Past Medical History / Comment(s): chronic back pain- worse after last tx History of Any Multi-Drug Resistant Organisms: None Reported Past Surgical History: Orthopedic Surgery Additional Past Surgical History / Comment(s): RT KNEE SURG. PAIN CLINIC PROC. Past Anesthesia/Blood Transfusion Reactions: No Reported Reaction Past Psychological History: Anxiety Smoking Status: Current every day smoker Past Alcohol Use History: None Reported Past Drug Use History: None Reported - Past Family History Mother Family Medical History: Liver Disease Additional Family Medical History / Comment(s): , liver failure from Hep C Father Family Medical History: Hypertension Additional Family Medical History / Comment(s): drinker General Exam General appearance: alert, in no apparent distress Head exam: Present: atraumatic, normocephalic, normal inspection Eye exam: Present: normal appearance, EOMI Neck exam: Present: normal inspection. Absent: meningismus Respiratory exam: Absent: respiratory distress Back exam: Present: normal inspection, tenderness Neurological exam: Present: alert, oriented X3 Psychiatric exam: Present: normal affect, normal mood Skin exam: Present: warm, dry, normal color Course Vital Signs 04/07/24 19:21 Temperature 98.3 F Pulse Rate 108 H Respiratory 18 Rate Blood Pressure 135/80 O2 Sat by Pulse 99 Oximetry Medical Decision Making - Medical Decision Making Was pt. sent in by a medical professional or institution (Dr. PA, SPRAY GUN STRIPER, urgent care, hospital, or [facility]...) When possible be specific @ -No Did you speak to anyone other than the patient for history (EMS, parent, family, police, friend...)? What history was obtained from this source @ -No Did you review nursing and triage notes (agree or disagree)? Why? @ -I reviewed and agree with nursing and triage notes Were old charts reviewed (outside hosp., previous admission, EMS record, old EKG, old radiological studies, urgent care reports/EKG's, [facility] records)? Report findings @ -No old charts were reviewed Differential Diagnosis (chest pain, altered mental status, abdominal pain women, abdominal pain men, vaginal bleeding, weakness, fever, dyspnea, syncope, headache, dizziness, GI bleed, back pain, seizure, CVA, palpatations, mental health, musculoskeletal)? @ - [facility] Differential Back Pain: Strain, zoster, cauda equina syndrome, epidural abscess, vertebral osteomyelitis, discitis, fracture, subluxation, disc herniation, DJD, spinal stenosis, dissection, AAA, pancreatitis, peptic ulcer disease, pyelonephritis, kidney stone this is not meant to be an all-inclusive list. EKG interpreted by me (3pts min.). @ -As above X-rays interpreted by me (1pt min.). @ -None done CT interpreted by me (1pt min.). @ -None done U/S interpreted by me (1pt. min.). @ -None done What testing was considered but not performed or refused? (CT, X-rays, U/S, labs)? Why? @ -None What meds were considered but not given or refused? Why? @ -None Did you discuss the management of the patient with other professionals (professionals i.e. , PA, SPRAY GUN STRIPER, lab, RT, psych nurse, social media designer, health researcher, teacher, aviation tactical readiness officer, case fitter)? Give summary @ -No Was smoking cessation discussed for >3mins.? @ -No Was critical care preformed (if so, how long)? @ -No Were there social determinants of health that impacted care today? How? (Homelessness, low income, unemployed, alcoholism, drug addiction, tra nsportation, low edu. Level, literacy, decrease access to med. care, penitentiary, rehab)? @ -No Was there de-escalation of care discussed even if they declined (Discuss DNR or withdrawal of care, Hospice)? DNR status @ -No What co-morbidities impacted this encounter? (DM, HTN, Smoking, COPD, CAD, Cancer, CVA, ARF, Chemo, Hep., AIDS, mental health diagnosis, sleep apnea, morbid obesity)? @ -None Was patient admitted / discharged? Hospital course, mention meds given and route, prescriptions, significant lab abnormalities, going to OR and other pertinent info. @ -43-year-old male presenting with chief complaint of back pain. This pain is chronic in nature. No new injury or trauma no red flag symptoms. Patient will be treated with pain medication and is instructed to follow-up with his PCP and pain management. Follow-up with PCP. Report back to ER with any new or worsening symptoms. Discussed return parameters and answered all questions. Patient conveyed verbal understanding and agreed to the plan. I discussed this case in detail with my attending Dr. Davis Undiagnosed new problem with uncertain prognosis? @ -No Drug Therapy requiring intensive monitoring for toxicity (Heparin, Nitro, Insulin, Cardizem)? @ -No Were any procedures done? @ -No Diagnosis/symptom? @ -Chronic back pain Acute, or Chronic, or Acute on Chronic? @ -Acute on chronic Uncomplicated (without systemic symptoms) or Complicated (systemic symptoms)? @ -Uncomplicated Side effects of treatment? @ -No Exacerbation, Progression, or Severe Exacerbation? @ -No Poses a threat to life or bodily function? How? (Chest pain, [place], [place], pneumonia, PE, COPD, DKA, ARF, appy, cholecystitis, CVA, Diverticulitis, Homicidal, Suicidal, threat to staff... and all critical care pts) @ -No Disposition Clinical Impression: Chronic back pain Disposition: HOME SELF-CARE Condition: Good Instructions (If sedation given, give patient instructions): Chronic Back Pain (DC) Additional Instructions: Follow-up with PCP. Report back to ER with any new or worsening symptoms. Is patient prescribed a controlled substance at d/c from ED?: No Referrals: Soheila Santacruz DO [Primary Care Provider] - 1-2 days Time of Disposition: 19:28
[2024-04-07 19:23] VITALS: BP 135/80; PULSE 108; RESP 18; TEMP 98.3
[2024-04-07] MEDS: HYDROmorphone 1 MG/ML 1 ML SYRINGE IM STA (19:49)
[2024-04-07] MEDS: LIDOCAINE 4% PATCH TOPICAL ONE (19:50)
[2024-04-07] MEDS: ACET/COD 300 MG/30 MG STARTER PACK 6 TAB BTL PO STA (19:50)
== END 2024-04-07 19:50 | disposition home or self-care (01) ==
LOC: EC 18:47
DX: G89.29 Other chronic pain (principal); M54.9 Dorsalgia, unspecified; F17.200 Nicotine dependence, unspecified, uncomplicated; Z88.0 Allergy status to penicillin
CPT/HCPCS: 99283; 96372; J1171

== ENCOUNTER 2024-04-12 17:47 | Emergency (ER) | payer OTHER ==
[2024-04-12 18:03] VITALS: RESP 18; TEMP 97.6
--- NOTE | 2024-04-12 18:15 | ED ---
Back Pain HPI - General Chief Complaint: Back Pain/Injury Stated Complaint: back pain Time Seen by Provider: 04/12/24 18:06 Source: patient Limitations: no limitations - History of Present Illness Initial Comments: 43-year-old male presenting chief complaint of back pain. Patient has history of chronic back pain, this feels consistent with his previous flareups of chronic back pain. He has had no new injury or trauma. No loss of bowel or bladder control or saddle paresthesia. [facility] on [facility], was started on high-dose steroids and switched from gabapentin to Lyrica. He has an order for physical therapy and his evaluation is this Monday. No fevers or chills. No nausea vomiting or abdominal pain. No urinary symptoms. - Related Data Home Medications Medication Instructions Recorded Confirmed Ibuprofen [Motrin Ib] 800 mg PO DIRECTED PRN 10/26/22 12/01/22 Previous Rx's Medication Instructions Recorded Cyclobenzaprine [Flexeril] 5 mg PO TID PRN #15 tablet 11/07/22 Lidocaine 5% Patch [Lidoderm 5% 1 patch TOPICAL DAILY PRN #7 patch 11/07/22 Patch] Acetaminophen Tab [Tylenol Tab] 1,000 mg PO Q6HR PRN #30 tablet 11/18/22 Lidocaine 5% Patch [Lidoderm 5% 1 patch TOPICAL DAILY PRN #7 patch 11/18/22 Patch] Naproxen [Naprosyn] 500 mg PO BID 30 Days #60 tablet 11/23/22 HYDROcodone/APAP 5-325MG [[place] 1 tab PO Q6HR PRN 3 Days #12 tab 12/11/23 5-325] predniSONE [Deltasone] 20 mg PO BID #10 tab 03/17/24 Allergies Allergy/AdvReac Type Severity Reaction Status Date / Time Penicillins Allergy Unknown Verified 04/12/24 17:57 Review of Systems ROS Statement: Those systems with pertinent positive or pertinent negative responses have been documented in the HPI. ROS Other: All systems not noted in ROS Statement are negative. Past Medical History Past Medical History: Pneumonia Additional Past Medical History / Comment(s): chronic back pain- worse after last tx. dextroscoliosis History of Any Multi-Drug Resistant Organisms: None Reported Past Surgical History: Orthopedic Surgery Additional Past Surgical History / Comment(s): RT KNEE SURG. PAIN CLINIC PROC. Past Anesthesia/Blood Transfusion Reactions: No Reported Reaction Past Psychological History: Anxiety Smoking Status: Current every day smoker Past Alcohol Use History: None Reported Past Drug Use History: None Reported - Past Family History Mother Family Medical History: Liver Disease Additional Family Medical History / Comment(s): , liver failure from Hep C Father Family Medical History: Hypertension Additional Family Medical History / Comment(s): drinker General Exam Limitations: no limitations General appearance: alert, in no apparent distress Head exam: Present: atraumatic, normocephalic Eye exam: Present: normal appearance, EOMI Neck exam: Present: normal inspection. Absent: meningismus Respiratory exam: Absent: respiratory distress Back exam: Present: normal inspection, tenderness Neurological exam: Present: alert, oriented X3 Psychiatric exam: Present: normal affect, normal mood Skin exam: Present: warm, dry Course Vital Signs 04/12/24 17:57 Temperature 97.6 F Pulse Rate 111 H Respiratory 18 Rate Blood Pressure 140/92 O2 Sat by Pulse 98 Oximetry Medical Decision Making - Medical Decision Making Was pt. sent in by a medical professional or institution (, PA, MEDICARE INSURANCE SPECIALIST, urgent care, hospital, or [place] health [facility] facility...) When possible be specific @ -No Did you speak to anyone other than the patient for history (EMS, parent, family, police, friend...)? What history was obtained from this source @ -No Did you review nursing and triage notes (agree or disagree)? Why? @ -I reviewed and agree with nursing and triage notes Were old charts reviewed (outside hosp., previous admission, EMS record, old EKG, old radiological studies, urgent care reports/EKG's, [place] health [facility] facility records)? Report findings @ -No old charts were reviewed Differential Diagnosis (chest pain, altered mental status, abdominal pain women, abdominal pain men, vaginal bleeding, weakness, fever, dyspnea, syncope, headache, dizziness, GI bleed, back pain, seizure, CVA, palpatations, mental health, musculoskeletal)? @ - MDM Differential Back Pain: Strain, zoster, cauda equina syndrome, epidural abscess, vertebral osteomyelitis, discitis, fracture, subluxation, disc herniation, DJD, spinal stenosis, dissection, AAA, pancreatitis, peptic ulcer disease, pyelonephritis, kidney stone this is not meant to be an all-inclusive list. EKG interpreted by me (3pts min.). @ -As above X-rays interpreted by me (1pt min.). @ -None done CT interpreted by me (1pt min.). @ -None done U/S interpreted by me (1pt. min.). @ -None done What testing was considered but not performed or refused? (CT, X-rays, U/S, labs)? Why? @ -None What meds were considered but not given or refused? Why? @ -None Did you discuss the management of the patient with other professionals (professionals i.e. DrTyler, PA, MEDICARE INSURANCE SPECIALIST, lab, RT, psych nurse, rn social work, tool tender, teacher, supervisory cbp officer, egg caser)? Give summary @ -No Was smoking cessation discussed for >3mins.? @ -No Was critical care preformed (if so, how long)? @ -No Were there social determinants of health that impacted care today? How? (Homelessness, low income, unemployed, alcoholism, drug addiction, transportation, low edu. Level, literacy, decrease access to med. care, senior care, rehab)? @ -No Was there de-escalation of care discussed even if they declined (Discuss DNR or withdrawal of care, Hospice)? DNR status @ -No What co-morbidities impacted this encounter? (DM, HTN, Smoking, COPD, CAD, Cancer, CVA, ARF, Chemo, Hep., AIDS, mental health diagnosis, sleep apnea, morbid obesity)? @ -None Was patient admitted / discharged? Hospital course, mention meds given and route, prescriptions, significant lab abnormalities, going to OR and other pertinent info. @ -43-year-old male with history of chronic back pain. Complaining of back pain, no new features and no new injury. No red flag symptoms. Patient is tr eated with pain medication. He is currently following with [facility] and has his physical therapy evaluation scheduled for this Monday. Follow-up with PCP. Report back to ER with any new or worsening symptoms. Discussed return parameters and answered all questions. Patient conveyed verbal understanding and agreed to the plan. I discussed this case in detail with my attending Dr. Lowery Undiagnosed new problem with uncertain prognosis? @ -No Drug Therapy requiring intensive monitoring for toxicity (Heparin, Nitro, Insulin, Cardizem)? @ -No Were any procedures done? @ -No Diagnosis/symptom? @ -Back pain Acute, or Chronic, or Acute on Chronic? @ -Acute on chronic Uncomplicated (without systemic symptoms) or Complicated (systemic symptoms)? @ -Uncomplicated Side effects of treatment? @ -No Exacerbation, Progression, or Severe Exacerbation? @ -No Poses a threat to life or bodily function? How? (Chest pain, [place], [place], pneumonia, PE, COPD, DKA, ARF, appy, cholecystitis, CVA, Diverticulitis, Homicidal, Suicidal, threat to staff... and all critical care pts) @ -low likelihood Disposition Clinical Impression: Chronic back pain Disposition: HOME SELF-CARE Condition: Good Instructions (If sedation given, give patient instructions): Chronic Back Pain (DC) Additional Instructions: Follow-up with your PCP, orthopedic, and physical therapy. Report back to ER with any new or worsening symptoms. Is patient prescribed a controlled substance at d/c from ED?: No Referrals: Sohelia Santacruz DO [Primary Care Provider] - 1-2 days Susana Sam NPC [Nurse Practitioner] - 1-2 days Time of Disposition: 18:14
[2024-04-12] MEDS: HYDROmorphone 1 MG/ML 1 ML SYRINGE IM STA (18:42)
[2024-04-12] MEDS: KETOROLAC 15 MG/ML 1 ML VIAL IM STA (18:43)
[2024-04-12 18:45] VITALS: BP 131/80; PULSE 100
== END 2024-04-12 18:51 | disposition home or self-care (01) ==
LOC: EC 17:47
DX: G89.29 Other chronic pain (principal); F17.200 Nicotine dependence, unspecified, uncomplicated; Z88.0 Allergy status to penicillin
CPT/HCPCS: 99283; 96372; J1171; J1885

== ENCOUNTER 2024-04-13 17:50 | Emergency (ER) | payer OTHER ==
--- NOTE | 2024-04-13 18:46 | ED ---
Back Pain HPI - General Chief Complaint: Back Pain/Injury Stated Complaint: BACK PN DISCHARGE 04/12 Time Seen by Provider: 04/13/24 18:46 Source: patient, RN notes reviewed Limitations: no limitations - History of Present Illness Initial Comments: 43-year-old male with chronic back pain presenting for acute flare of low back pain. States the pain is sharp and shooting down the left leg. Denies acute injuries or new symptoms. Denies loss of bowel or bladder control recently retention. Patient had appointment with orthopedics on 1230 where x-rays were performed. Patient is currently on steroids and baclofen. He is starting physical therapy on Monday. - Related Data Home Medications Medication Instructions Recorded Confirmed Ibuprofen [Motrin Ib] 800 mg PO DIRECTED PRN 10/26/22 12/01/22 Previous Rx's Medication Instructions Recorded Cyclobenzaprine [Flexeril] 5 mg PO TID PRN #15 tablet 11/07/22 Lidocaine 5% Patch [Lidoderm 5% 1 patch TOPICAL DAILY PRN #7 patch 11/07/22 Patch] Acetaminophen Tab [Tylenol Tab] 1,000 mg PO Q6HR PRN #30 tablet 11/18/22 Lidocaine 5% Patch [Lidoderm 5% 1 patch TOPICAL DAILY PRN #7 patch 11/18/22 Patch] Naproxen [Naprosyn] 500 mg PO BID 30 Days #60 tablet 11/23/22 HYDROcodone/APAP 5-325MG [[place] 1 tab PO Q6HR PRN 3 Days #12 tab 12/11/23 5-325] predniSONE [Deltasone] 20 mg PO BID #10 tab 03/17/24 Allergies Allergy/AdvReac Type Severity Reaction Status Date / Time Penicillins Allergy Unknown Verified 04/13/24 18:04 Review of Systems ROS Statement: Those systems with pertinent positive or pertinent negative responses have been documented in the HPI. ROS Other: All systems not noted in ROS Statement are negative. Past Medical History Past Medical History: Pneumonia Additional Past Medical History / Comment(s): chronic back pain- worse after last tx. dextroscoliosis History of Any Multi-Drug Resistant Organisms: None Reported Past Surgical History: Orthopedic Surgery Additional Past Surgical History / Comment(s): RT KNEE SURG. PAIN CLINIC PROC. Past Anesthesia/Blood Transfusion Reactions: No Reported Reaction Past Psychological History: Anxiety Smoking Status: Current every day smoker Past Alcohol Use History: None Reported Past Drug Use History: None Reported - Past Family History Mother Family Medical History: Liver Disease Additional Family Medical History / Comment(s): , liver failure from Hep C Father Family Medical History: Hypertension Additional Family Medical History / Comment(s): drinker General Exam Limitations: no limitations General appearance: alert, in no apparent distress Head exam: Present: atraumatic, normocephalic, normal inspection Eye exam: Present: normal appearance, PERRL, EOMI. Absent: scleral icterus, conjunctival injection, periorbital swelling GI/Abdominal exam: Present: soft, normal bowel sounds. Absent: distended, tenderness, guarding, rebound, rigid Back exam: Present: normal inspection, full ROM, other (Full strength and range of motion of bilateral hips. Full sensation and DP pulses bilaterally. No saddle anesthesia). Absent: tenderness, CVA tenderness (R), CVA tenderness (L), paraspinal tenderness Neurological exam: Present: alert, oriented X3 Psychiatric exam: Present: normal affect, normal mood Skin exam: Present: warm, dry, intact, normal color. Absent: rash Course Vital Signs 04/13/24 18:04 Temperature 98 F Pulse Rate 87 Respiratory 18 Rate Blood Pressure 144/91 O2 Sat by Pulse 100 Oximetry Medical Decision Making - Medical Decision Making Was pt. sent in by a medical professional or institution (AYDEE Esqueda, WOOD HACKER, urgent care, hospital, or correction...) When possible be specific @ -No Did you speak to anyone other than the patient for history (EMS, parent, family, police, friend...)? What history was obtained from this source @ -No Did you review nursing and triage notes (agree or disagree)? Why? @ -I reviewed and agree with nursing and triage notes Were old charts reviewed (outside hosp., previous admission, EMS record, old EKG, old radiological studies, urgent care reports/EKG's, correction records)? Report findings @ -Previous ER visit from yesterday reviewed Differential Diagnosis (chest pain, altered mental status, abdominal pain women, abdominal pain men, vaginal bleeding, weakness, fever, dyspnea, syncope, headache, dizziness, GI bleed, back pain, seizure, CVA, palpatations, mental health, musculoskeletal)? @ -Differential Back Pain: Strain, zoster, cauda equina syndrome, epidural abscess, vertebral osteomyelitis, discitis, fracture, subluxation, disc herniation, DJD, spinal stenosis, dissection, AAA, pancreatitis, peptic ulcer disease, pyelonephritis, kidney stone, this is not meant to be an all-inclusive list. EKG interpreted by me (3pts min.). @ -None X-rays interpreted by me (1pt min.). @ -None done CT interpreted by me (1pt min.). @ -None done U/S interpreted by me (1pt. min.). @ -None done What testing was considered but not performed or refused? (CT, X-rays, U/S, labs)? Why? @ -Imaging deferred as pain is chronic in nature, no new injuries. Patient underwent x-rays 4 days ago by orthopedics What meds were considered but not given or refused? Why? @ -None Did you discuss the management of the patient with other professionals (professionals i.e. , PA, WOOD HACKER, lab, RT, psych nurse, web content & social media manager, right of way cutter, teacher, physics technical officer, continuous pillowcase cutter)? Give summary @ -No Was smoking cessation discussed for >3mins.? @ -No Was critical care preformed (if so, how long)? @ -No Were there social determinants of health that impacted care today? How? (Homelessness, low income, unemployed, alcoholism, drug addiction, transportation, low edu. Level, literacy, decrease access to med. care, group home, rehab)? @ -No Was there de-escalation of care discussed even if they declined (Discuss DNR or withdrawal of care, Hospice)? DNR status @ -No What co-morbidities impacted this encounter? (DM, HTN, Smoking, COPD, CAD, Cancer, CVA, ARF, Chemo, Hep., AIDS, mental health diagnosis, sleep apnea, morbid obesity)? @ -None Was patient admitted / discharged? Hospital course, mention meds given and route, prescriptions, significant lab abnormalities, going to OR and other pertinent info. @ -Discharge. This is a 43-year-old male presenting for acute on chronic back pain. No acute symptoms or injuries. Neurovascularly intact. No red flag symptoms. Patient was provided with analgesics and reports improvement of symptoms. Advised close follow-up with orthopedics. Appropriate return precautions discussed and patient is agreeable to plan. Case was discussed with my ED attending Dr. Davis. Undiagnosed new problem with uncertain prognosis? @ -No Drug Therapy requiring intensive monitoring for toxicity (Heparin, Nitro, Insulin, Cardizem)? @ -No Were any procedures done? @ -No Diagnosis/symptom? @ -Acute on chronic back pain Acute, or Chronic, or Acute on Chronic? @ -Acute on chronic Uncomplicated (without systemic symptoms) or Complicated (systemic symptoms)? @ -Uncomplicated Side effects of treatment? @ -No Exacerbation, Progression, or Severe Exacerbation? @ -No Poses a threat to life or bodily function? How? (Chest pain, [place], [place], pneumonia, PE, COPD, DKA, ARF, appy, cholecystitis, CVA, Diverticulitis, Homicidal, Suicidal, threat to staff... and all critical care pts) @ -No Disposition Clinical Impression: Low back pain Disposition: HOME SELF-CARE Condition: Stable Additional Instructions: Follow up with orthopedics as discussed. Please return to the Emergency Department if symptoms worsen or any other concerns. Is patient prescribed a controlled substance at d/c from ED?: No Referrals: None,Stated [Primary Care Provider] - 1-2 days Time of Disposition: 19:28
[2024-04-13] MEDS: KETOROLAC 15 MG/ML 1 ML VIAL IM STA (18:47)
[2024-04-13] MEDS: ORPHENADRINE 30 MG/ML 2 ML VIAL IM STA (18:47)
[2024-04-13] MEDS: LIDOCAINE 4% PATCH TOPICAL ONE (18:53)
[2024-04-13] MEDS: HYDROmorphone 1 MG/ML 1 ML SYRINGE IVP STA (19:34)
[2024-04-13] MEDS: ACET/COD 300 MG/30 MG STARTER PACK 6 TAB BTL PO STA (19:40)
[2024-04-13] MEDS: HYDROmorphone 1 MG/ML 1 ML SYRINGE IM STA (19:41)
[2024-04-13 19:47] VITALS: BP 138/86; PULSE 82; RESP 17; TEMP 98
== END 2024-04-13 19:45 | disposition home or self-care (01) ==
LOC: EC 17:50
DX: M54.50 Low back pain, unspecified (principal); F17.200 Nicotine dependence, unspecified, uncomplicated; Z88.0 Allergy status to penicillin
CPT/HCPCS: 99283; 96372 ×3; J2360; J1171; J1885

== ENCOUNTER 2024-04-17 10:51 | Emergency (ER) | payer OTHER ==
[2024-04-17 11:00] VITALS: RESP 18; TEMP 97.6
--- NOTE | 2024-04-17 11:16 | ED ---
Back Pain HPI - General Chief Complaint: Back Pain/Injury Stated Complaint: lower back pain Time Seen by Provider: 04/17/24 11:16 Source: patient, RN notes reviewed, old records reviewed Mode of arrival: ambulatory Limitations: no limitations - History of Present Illness Initial Comments: 43-year-old male presented to the ER for evaluation of back pain. Patient states has been an ongoing problem for the past 20 years. He has been seen in this emergency department numerous times over the past couple of weeks last visit, 04-09-2024, for similar complaint. He is following up with orthopedics, Dr. Gay. Patient states he had his first physical therapy appointment today after he worked an 8-hour shift which may have exacerbated his symptoms. He is experiencing 10 out of 10 pain to his lower back with radiation down his left lower extremity. Pain is sharp/tingling in nature. He states he must complete physical therapy prior to MRI for insurance purposes. On 04-09-2024 he was started on high-dose prednisone x 10 days he is still currently taking this. Patient was started on Lyrica by orthopedics but states he thinks the dose is too low as he is not seeing any benefits. Patient denying any new injuries or traumas. Denies saddle paresthesias, bowel or bladder incontinence, fevers. Patient denies weakness or inability to ambulate. - Related Data Home Medications Medication Instructions Recorded Confirmed Ibuprofen [Motrin Ib] 800 mg PO DIRECTED PRN 10/26/22 12/01/22 Previous Rx's Medication Instructions Recorded Cyclobenzaprine [Flexeril] 5 mg PO TID PRN #15 tablet 11/07/22 Lidocaine 5% Patch [Lidoderm 5% 1 patch TOPICAL DAILY PRN #7 patch 11/07/22 Patch] Acetaminophen Tab [Tylenol Tab] 1,000 mg PO Q6HR PRN #30 tablet 11/18/22 Lidocaine 5% Patch [Lidoderm 5% 1 patch TOPICAL DAILY PRN #7 patch 11/18/22 Patch] Naproxen [Naprosyn] 500 mg PO BID 30 Days #60 tablet 11/23/22 HYDROcodone/APAP 5-325MG [[place] 1 tab PO Q6HR PRN 3 Days #12 tab 12/11/23 5-325] predniSONE [Deltasone] 20 mg PO BID #10 tab 12/08/24 HYDROcodone/APAP 5-325MG [[place] 1 tab PO Q6HR PRN 3 Days #12 tab 04/20/24 5-325] Allergies Allergy/AdvReac Type Severity Reaction Status Date / Time Penicillins Allergy Unknown Verified 04/20/24 20:54 Review of Systems ROS Statement: Those systems with pertinent positive or pertinent negative responses have been documented in the HPI. ROS Other: All systems not noted in ROS Statement are negative. Past Medical History Past Medical History: Pneumonia Additional Past Medical History / Comment(s): chronic back pain- worse after last tx. dextroscoliosis History of Any Multi-Drug Resistant Organisms: None Reported Past Surgical History: Orthopedic Surgery Additional Past Surgical History / Comment(s): RT KNEE SURG. PAIN CLINIC PROC. Past Anesthesia/Blood Transfusion Reactions: No Reported Reaction Past Psychological History: Anxiety Smoking Status: Current every day smoker Past Alcohol Use History: None Reported Past Drug Use History: None Reported - Past Family History Mother Family Medical History: Liver Disease Additional Family Medical History / Comment(s): , liver failure from Hep C Father Family Medical History: Hypertension Additional Family Medical History / Comment(s): drinker General Exam Limitations: no limitations Course Vital Signs 04/17/24 04/17/24 10:56 13:08 Temperature 97.6 F Pulse Rate 82 67 Respiratory 18 18 Rate Blood Pressure 146/91 143/86 O2 Sat by Pulse 100 100 Oximetry Medical Decision Making - Medical Decision Making Was pt. sent in by a medical professional or institution (, PA, BULB BRANDER, urgent care, hospital, or alf...) When possible be specific @ -No Did you speak to anyone other than the patient for history (EMS, parent, family, police, friend...)? What history was obtained from this source @ -No Did you review nursing and triage notes (agree or disagree)? Why? @ -I reviewed and agree with nursing and triage notes Were old charts reviewed (outside hosp., previous admission, EMS record, old EKG, old radiological studies, urgent care reports/EKG's, alf records)? Report findings @ -Yes I reviewed prior ER visits patient seen here for similar complaint. Differential Diagnosis (chest pain, altered mental status, abdominal pain women, abdominal pain men, vaginal bleeding, weakness, fever, dyspnea, syncope, headache, dizziness, GI bleed, back pain, seizure, CVA, palpatations, mental health, musculoskeletal)? @ -Differential Back Pain: Strain, zoster, cauda equina syndrome, epidural abscess, vertebral osteomyelitis, discitis, fracture, subluxation, disc herniation, DJD, spinal stenosis, dissection, AAA, pancreatitis, peptic ulcer disease, pyelonephritis, kidney stone, this is not meant to be an all-inclusive list. EKG interpreted by me (3pts min.). @ -None done X-rays interpreted by me (1pt min.). @ -Lumbar spine x-ray showing mild to moderate facet arthropathy. No acute fractures or dislocations. CT interpreted by me (1pt min.). @ -None done U/S interpreted by me (1pt. min.). @ -None done What testing was considered but not performed or refused? (CT, X-rays, U/S, labs)? Why? @ -None What meds were considered but not given or refused? Why? @ -None Did you discuss the management of the patient with other professionals (professionals i.e. , PA, BULB BRANDER, lab, RT, psych nurse, social work faculty member, gaming cage cashier, teacher, correctional officer sergeant, rehabilitation caseworker)? Give summary @ -No Was smoking cessation discussed for >3mins.? @ -No Was critical care preformed (if so, how long)? @ -No Were there social determinants of health that impacted care today? How? (Homelessness, low income, unemployed, alcoholism, drug addiction, transportation, low edu. Level, literacy, decrease access to med. care, long-term, rehab)? @ -No Was there de-escalation of care discussed even if they declined (Discuss DNR or withdrawal of care, Hospice)? DNR status @ -No What co-morbidities impacted this encounter? (DM, HTN, Smoking, COPD, CAD, Cancer, CVA, ARF, Chemo, Hep., AIDS, mental health diagnosis, sleep apnea, morbid obesity)? @ -Chronic back pain Was patient admitted / discharged? Hospital course, mention meds given and route, prescriptions, significant lab abnormalities, going to OR and other pertinent info. @Discharge. 43-year-old male presented the ER for evaluation of back pain. He is following up with Dr. Gay. History and physical exam completed. Vitals within acceptable limits. There is no red flag back pain symptoms indicative of cauda equina syndrome.. Patient is neurovascularly intact. Patient is able to ambulate without difficulty. X-rays obtained negative for acute fractures. Patient given symptomatic control in the ER with IM Dilaudid, Toradol and lidocaine patch. Patient be discharged with a Tylenol 3 starter pa ck and instructed to follow-up with orthopedics. Strict return parameters discussed. Patient discharged in stable condition with follow-up to PCP. Patient verbally expressed understanding and agreement with care plan. Case discussed with ED attending, Dr. Cheney. Undiagnosed new problem with uncertain prognosis? @ -No Drug Therapy requiring intensive monitoring for toxicity (Heparin, Nitro, Insulin, Cardizem)? @ -No Were any procedures done? @ -No Diagnosis/symptom? @ -Back pain Acute, or Chronic, or Acute on Chronic? @ -Chronic Uncomplicated (without systemic symptoms) or Complicated (systemic symptoms)? @ -Uncomplicated Side effects of treatment? @ -No Exacerbation, Progression, or Severe Exacerbation? @ -No Poses a threat to life or bodily function? How? (Chest pain, [place], [place], pneumonia, PE, COPD, DKA, ARF, appy, cholecystitis, CVA, Diverticulitis, Homicidal, Suicidal, threat to staff... and all critical care pts) @ -No - Radiology Data Radiology results: report reviewed, image reviewed Disposition Clinical Impression: Chronic back pain Disposition: HOME SELF-CARE Condition: Stable Additional Instructions: Follow-up with orthopedics as scheduled. Return to the ER for any new or worsening concerns. Is patient prescribed a controlled substance at d/c from ED?: No Referrals: None,Stated [Primary Care Provider] - 1-2 days Rafael Gay DO [Doctor of Osteopathic Medicine] - 1-2 days Forms: Area PCPs Time of Disposition: 13:03
--- NOTE | 2024-04-17 11:55 | XR ---
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 Mild subarticular sclerosis at the right SI joint. M [id number] facet arthropathy lower lumbar spine. Vertebral body heights and disc interspaces are maintained. Alignment preserved. IMPRESSION: 1. Mild to moderate facet arthropathy mid to lower lumbar spine. 2. Suggestion of some degenerative change at the right SI joint. 3. No vertebral compression collapse or malalignment. [facility], Workstation: [facility], 04/17/2024 11:53 AM
[2024-04-17] MEDS: HYDROmorphone 1 MG/ML 1 ML SYRINGE IM STA (12:15)
[2024-04-17] MEDS: KETOROLAC 15 MG/ML 1 ML VIAL IM STA (12:16)
[2024-04-17] MEDS: LIDOCAINE 4% PATCH TOPICAL ONE (12:19)
[2024-04-17] MEDS: ACET/COD 300 MG/30 MG STARTER PACK 6 TAB BTL PO STA (13:07)
[2024-04-17 13:09] VITALS: BP 143/86; PULSE 67
== END 2024-04-17 13:09 | disposition home or self-care (01) ==
LOC: EC 10:51
DX: G89.29 Other chronic pain (principal); M54.50 Low back pain, unspecified; M12.9 Arthropathy, unspecified; F17.200 Nicotine dependence, unspecified, uncomplicated; Z88.0 Allergy status to penicillin
CPT/HCPCS: 72100; 99284; 96372 ×2; J1171; J1885

== ENCOUNTER 2024-04-20 20:51 | Emergency (ER) | payer OTHER ==
[2024-04-20 20:54] VITALS: RESP 18; TEMP 97.8
--- NOTE | 2024-04-20 21:18 | ED ---
Back Pain HPI - General Chief Complaint: Back Pain/Injury Stated Complaint: Back pain Time Seen by Provider: 04/20/24 21:00 Source: patient - History of Present Illness Initial Comments: 43-year-old male presenting with chief complaint of back pain. This back pain is chronic in nature, mainly affecting his lower back and neck. There are no new features to this pain today. No loss of bowel or bladder control or saddle paresthesia. No injury or trauma. Patient states this is his typical chronic pain flareup. He is currently in physical therapy and following with [facility] - Related Data Home Medications Medication Instructions Recorded Confirmed Ibuprofen [Motrin Ib] 800 mg PO DIRECTED PRN 10/26/22 12/01/22 Previous Rx's Medication Instructions Recorded Cyclobenzaprine [Flexeril] 5 mg PO TID PRN #15 tablet 11/07/22 Lidocaine 5% Patch [Lidoderm 5% 1 patch TOPICAL DAILY PRN #7 patch 11/07/22 Patch] Acetaminophen Tab [Tylenol Tab] 1,000 mg PO Q6HR PRN #30 tablet 11/18/22 Lidocaine 5% Patch [Lidoderm 5% 1 patch TOPICAL DAILY PRN #7 patch 11/18/22 Patch] Naproxen [Naprosyn] 500 mg PO BID 30 Days #60 tablet 11/23/22 HYDROcodone/APAP 5-325MG [[place] 1 tab PO Q6HR PRN 3 Days #12 tab 12/11/23 5-325] predniSONE [Deltasone] 20 mg PO BID #10 tab 03/17/24 HYDROcodone/APAP 5-325MG [[place] 1 tab PO Q6HR PRN 3 Days #12 tab 04/20/24 5-325] Allergies Allergy/AdvReac Type Severity Reaction Status Date / Time Penicillins Allergy Unknown Verified 04/20/24 20:54 Review of Systems ROS Statement: Those systems with pertinent positive or pertinent negative responses have been documented in the HPI. ROS Other: All systems not noted in ROS Statement are negative. Past Medical History Past Medical History: Pneumonia Additional Past Medical History / Comment(s): chronic back pain- worse after last tx. dextroscoliosis History of Any Multi-Drug Resistant Organisms: None Reported Past Surgical History: Orthopedic Surgery Additional Past Surgical History / Comment(s): RT KNEE SURG. PAIN CLINIC PROC. Past Anesthesia/Blood Transfusion Reactions: No Reported Reaction Past Psychological History: Anxiety Smoking Status: Current every day smoker Past Alcohol Use History: None Reported Past Drug Use History: None Reported - Past Family History Mother Family Medical History: Liver Disease Additional Family Medical History / Comment(s): , liver failure from Hep C Father Family Medical History: Hypertension Additional Family Medical History / Comment(s): drinker General Exam Limitations: no limitations General appearance: alert, in no apparent distress Head exam: Present: atraumatic, normocephalic, normal inspection Eye exam: Present: normal appearance, EOMI Neck exam: Present: normal inspection Respiratory exam: Absent: respiratory distress Back exam: Present: normal inspection, tenderness Neurological exam: Present: alert, oriented X3 Psychiatric exam: Present: normal affect, normal mood Skin exam: Present: warm, dry Course Vital Signs 04/20/24 04/20/24 20:52 21:52 Temperature 97.8 F Pulse Rate 106 H 85 Respiratory 18 18 Rate Blood Pressure 138/84 127/82 O2 Sat by Pulse 100 97 Oximetry Medical Decision Making - Medical Decision Making Was pt. sent in by a medical professional or institution (, PA, DRAY TRUCK DRIVER, urgent care, hospital, or usp...) When possible be specific @ -No Did you speak to anyone other than the patient for history (EMS, parent, family, police, friend...)? What history was obtained from this source @ -No Did you review nursing and triage notes (agree or disagree)? Why? @ -I reviewed and agree with nursing and triage notes Were old charts reviewed (outside hosp., previous admission, EMS record, old EKG, old radiological studies, urgent care reports/EKG's, usp records)? Report findings @ -No old charts were reviewed Differential Diagnosis (chest pain, altered mental status, abdominal pain women, abdominal pain men, vaginal bleeding, weakness, fever, dyspnea, syncope, headache, dizziness, GI bleed, back pain, seizure, CVA, palpatations, mental health, musculoskeletal)? @ - MDM Differential Back Pain: Strain, zoster, cauda equina syndrome, epidural abscess, vertebral osteomyelitis, discitis, fracture, subluxation, disc herniation, DJD, spinal stenosis, dissection, AAA, pancreatitis, peptic ulcer disease, pyelonephritis, kidney stone this is not meant to be an all-inclusive list. EKG interpreted by me (3pts min.). @ -As above X-rays interpreted by me (1pt min.). @ -None done CT interpreted by me (1pt min.). @ -None done U/S interpreted by me (1pt. min.). @ -None done What testing was considered but not performed or refused? (CT, X-rays, U/S, labs)? Why? @ -None What meds were considered but not given or refused? Why? @ -None Did you discuss the management of the patient with other professionals (professionals i.e. Dr., PA, DRAY TRUCK DRIVER, lab, RT, psych nurse, manager social responsibility, mix technician, teacher, human resource officer, behavioral health case manager)? Give summary @ -No Was smoking cessation discussed for >3mins.? @ -No Was critical care preformed (if so, how long)? @ -No Were there social determinants of health that impacted care today? How? (Homelessness, low income, unemployed, alcoholism, drug addiction, transp ortation, low edu. Level, literacy, decrease access to med. care, senior care, rehab)? @ -No Was there de-escalation of care discussed even if they declined (Discuss DNR or withdrawal of care, Hospice)? DNR status @ -No What co-morbidities impacted this encounter? (DM, HTN, Smoking, COPD, CAD, Cancer, CVA, ARF, Chemo, Hep., AIDS, mental health diagnosis, sleep apnea, morbid obesity)? @ -None Was patient admitted / discharged? Hospital course, mention meds given and route, prescriptions, significant lab abnormalities, going to OR and other pertinent info. @ -43-year-old male presenting with chief complaint of acute on chronic back pain. No injury or trauma no red flag symptoms. Patient is treated with pain medication. He will follow-up with his PCP and orthopedist at [facility]. He will also follow-up with his physical therapist. Follow-up with PCP. Report back to ER with any new or worsening symptoms. Discussed return parameters and answered all questions. Patient conveyed verbal understanding and agreed to the plan. My attending is Dr. Mukherjee Undiagnosed new problem with uncertain prognosis? @ -No Drug Therapy requiring intensive monitoring for toxicity (Heparin, Nitro, Insulin, Cardizem)? @ -No Were any procedures done? @ -No Diagnosis/symptom? @ -Back pain Acute, or Chronic, or Acute on Chronic? @ -Acute on chronic Uncomplicated (without systemic symptoms) or Complicated (systemic symptoms)? @ -Uncomplicated Side effects of treatment? @ -No Exacerbation, Progression, or Severe Exacerbation? @ -No Poses a threat to life or bodily function? How? (Chest pain, [place], [place], pneumonia, PE, COPD, DKA, ARF, appy, cholecystitis, CVA, Diverticulitis, Homicidal, Suicidal, threat to staff... and all critical care pts) @ -No Disposition Clinical Impression: Chronic back pain Disposition: HOME SELF-CARE Condition: Good Instructions (If sedation given, give patient instructions): Chronic Back Pain (DC) Additional Instructions: Follow-up with your PCP, orthopedist, and physical therapist. Report back to ER with any new or worsening symptoms. Prescriptions: HYDROcodone/APAP 5-325MG [[place] 5-325] 1 tab PO Q6HR PRN 3 Days #12 tab PRN Reason: Pain Is patient prescribed a controlled substance at d/c from ED?: Yes When asked, does pt state using other controlled substances?: No If prescribed controlled substance>3 days was MAPS reviewed?: Prescribed <3 Days If opioid is for acute pain is fill amount 7 days or less?: Yes Referrals: None,Stated [Primary Care Provider] - 1-2 days Rafael Gay DO [Doctor of Osteopathic Medicine] - 1-2 days Time of Disposition: 21:18
[2024-04-20] MEDS: KETOROLAC 15 MG/ML 1 ML VIAL IM STA (21:36)
[2024-04-20] MEDS: HYDROmorphone 1 MG/ML 1 ML SYRINGE IM STA (21:37)
[2024-04-20 21:54] VITALS: BP 127/82; PULSE 85
== END 2024-04-20 22:00 | disposition home or self-care (01) ==
LOC: EC 20:51
DX: G89.29 Other chronic pain (principal); M54.50 Low back pain, unspecified; F17.200 Nicotine dependence, unspecified, uncomplicated; Z88.0 Allergy status to penicillin
CPT/HCPCS: 99283; 96372; J1171; J1885

== ENCOUNTER 2024-04-24 23:24 | Emergency (ER) | payer OTHER ==
[2024-04-24 23:29] VITALS: BP 140/86; PULSE 105; RESP 18; TEMP 98.2
--- NOTE | 2024-04-24 23:48 | ED ---
Back Pain [facility] - General Chief Complaint: Back Pain/Injury Stated Complaint: Back Pain Time Seen by Provider: 04/24/24 23:32 Source: patient, RN notes reviewed Mode of arrival: ambulatory Limitations: no limitations - History of Present Illness Initial Comments: This is a 43-year-old male who presents to the emergency department for chronic back pain. Patient has a longstanding history of chronic back pain and is currently in physical therapy. He is also following with orthopedics and has his next appointment on 05/21. He is also waiting to get in with a new primary care provider. Given the gap in time between appointments, he has not been able to get anything for pain control, prompting him to come here. States that the [place] does help him with the pain. He is taking over the counter ibuprofen and Tylenol as well. He is also on Lyrica. States that he was previously on Flexeril, however he was only able to take it at night because it made him drowsy. He feels like this did offer him some benefit. He has also tried other NSAIDs such as diclofenac and meloxicam, which have not been beneficial. States that steroids also seem to make things worse. Denies any new injuries. Denies any loss of bowel/bladder control or saddle anesthesia. MD Complaint: back pain - Related Data Home Medications Medication Instructions Recorded Confirmed Ibuprofen [Motrin Ib] 800 mg PO DIRECTED PRN 10/26/22 12/01/22 Previous Rx's Medication Instructions Recorded Cyclobenzaprine [Flexeril] 5 mg PO TID PRN #15 tablet 11/07/22 Lidocaine 5% Patch [Lidoderm 5% 1 patch TOPICAL DAILY PRN #7 patch 11/07/22 Patch] Acetaminophen Tab [Tylenol Tab] 1,000 mg PO Q6HR PRN #30 tablet 11/18/22 Lidocaine 5% Patch [Lidoderm 5% 1 patch TOPICAL DAILY PRN #7 patch 11/18/22 Patch] Naproxen [Naprosyn] 500 mg PO BID 30 Days #60 tablet 11/23/22 HYDROcodone/APAP 5-325MG [[place] 1 tab PO Q6HR PRN 3 Days #12 tab 12/11/23 5-325] predniSONE [Deltasone] 20 mg PO BID #10 tab 03/17/24 HYDROcodone/APAP 5-325MG [[place] 1 tab PO Q6HR PRN 3 Days #12 tab 04/20/24 5-325] Cyclobenzaprine [Flexeril] 10 mg PO TID PRN #30 tab 04/24/24 HYDROcodone/APAP 5-325MG [[place] 1 tab PO Q6HR PRN 3 Days #12 tab 04/24/24 5-325] Allergies Allergy/AdvReac Type Severity Reaction Status Date / Time Penicillins Allergy Unknown Verified 04/24/24 23:25 Review of Systems ROS Statement: Those systems with pertinent positive or pertinent negative responses have been documented in the HPI. ROS Other: All systems not noted in ROS Statement are negative. Past Medical History Past Medical History: Pneumonia Additional Past Medical History / Comment(s): chronic back pain- worse after last tx. dextroscoliosis History of Any Multi-Drug Resistant Organisms: None Reported Past Surgical History: Orthopedic Surgery Additional Past Surgical History / Comment(s): RT KNEE SURG. PAIN CLINIC PROC. Past Anesthesia/Blood Transfusion Reactions: No Reported Reaction Past Psychological History: Anxiety Smoking Status: Current every day smoker Past Alcohol Use History: None Reported Past Drug Use History: None Reported - Past Family History Mother Family Medical History: Liver Disease Additional Family Medical History / Comment(s): , liver failure from Hep C Father Family Medical History: Hypertension Additional Family Medical History / Comment(s): drinker General Exam Limitations: no limitations General appearance: alert, in no apparent distress Head exam: Present: atraumatic, normocephalic, normal inspection Respiratory exam: Present: normal lung sounds bilaterally. Absent: respiratory distress, wheezes, rales, rhonchi, stridor Cardiovascular Exam: Present: regular rate, normal rhythm, normal heart sounds. Absent: systolic murmur, diastolic murmur, rubs, gallop, clicks Neurological exam: Present: alert, oriented X3, CN II-XII intact Psychiatric exam: Present: normal affect, normal mood Skin exam: Present: warm, dry, intact, normal color. Absent: rash Course Vital Signs 04/24/24 23:25 Temperature 98.2 F Pulse Rate 105 H Respiratory 18 Rate Blood Pressure 140/86 O2 Sat by Pulse 99 Oximetry Medical Decision Making - Medical Decision Making This is a 43-year-old male who presents to the emergency department for back pain. Was pt. sent in by a medical professional or institution? @ -No Did you speak to anyone other than the patient for history? @ -No Did you review nursing and triage notes? @ -Yes, and I agree, it is accurate with regards to the patient's symptoms. Were old charts reviewed? @ -No Differential Diagnosis? @ -Differential Back Pain: Strain, zoster, cauda equina syndrome, epidural abscess, vertebral osteomyelitis, discitis, fracture, subluxation, disc herniation, DJD, spinal stenosis, dissection, AAA, pancreatitis, peptic ulcer disease, pyelonephritis, kidney stone, this is not meant to be an all-inclusive list. EKG interpreted by me (3pts min.)? @ -Not obtained X-rays interpreted by me (1pt min.)? @ -Not obtained CT interpreted by me (1pt min.)? @ -Not obtained U/S interpreted by me (1pt. min.)? @ -Not obtained What testing was considered but not performed? (CT, X-rays, U/S, labs)? Why? @ -None What meds were considered but not given? Why? @ -None Did you discuss the management of the patient with other professionals? @ -No Did you reconcile home meds? @ -No Was smoking cessation discussed for >3mins.? @ -I discussed smoking cessation for greater than 3 minutes. The risk of smoking were discussed with the patient including but not limited to risks of cancer, stroke, coronary artery disease and COPD. Also discussed with patient were multiple methods of quitting smoking. Lastly we discussed the financial cost of smoking. Was critical care preformed (if so, how long)? @ -No Were there social determinants of health that impacted care today? How? (H omelessness, low income, unemployed, alcoholism, drug addiction, transportation, low edu. Level, literacy, decrease access to med. care, intermediate, rehab)? @ -No Was there de-escalation of care discussed even if they declined? (Discuss DNR or withdrawal of care, Hospice)? @ -No What co-morbidities impacted this encounter? (DM, HTN, Smoking, COPD, CAD, Cancer, CVA, Hep., AIDS, mental health diagnosis, sleep apnea, morbid obesity)? @ -Chronic back pain, smoking Was patient admitted / discharged? @ -Discharged. Patient reports a flareup of chronic pain. Denies sustaining any new injuries. He also had no red flag signs or symptoms such as loss of bowel/bladder control or saddle anesthesia. Pain was managed in the emergency department. 3-day refill on the [place] provided. I did also send in Flexeril as he states that it has been beneficial for him in the past. Patient discharged home in stable condition. Case discussed with ED attending Dr. Davis. Return precautions reviewed in depth, the patient is instructed to return to the emergency department with any new, worsening, or concerning symptoms. Patient verbalized understanding. Undiagnosed new problem with uncertain prognosis? @ -None Drug Therapy requiring intensive monitoring for toxicity (Heparin, Nitro, Insulin, Cardizem)? @ -None Were any procedures done? @ -None Diagnosis/symptom? @ -Chronic back pain Acute, or Chronic, or Acute on Chronic? @ -Chronic Uncomplicated (without systemic symptoms) or Complicated (systemic symptoms)? @ -Uncomplicated Side effects of treatment? @ -None Exacerbation, Progression, or Severe Exacerbation] @ -Exacerbation Poses a threat to life or bodily function? @ -Patient reports that the pain limits his ability to function Disposition Clinical Impression: Chronic back pain, Nicotine dependence Disposition: HOME SELF-CARE Instructions (If sedation given, give patient instructions): Chronic Back Pain (DC) Additional Instructions: Return to the emergency department with any new, worsening, or concerning symptoms. Take the [place] sparingly when your pain is the most severe. Take the Flexeril up to 3 times daily, however you can also primarily take it at night because it makes you drowsy. Prescriptions: Cyclobenzaprine [Flexeril] 10 mg PO TID PRN #30 tab PRN Reason: Pain HYDROcodone/APAP 5-325MG [[place] 5-325] 1 tab PO Q6HR PRN 3 Days #12 tab PRN Reason: Pain Is patient prescribed a controlled substance at d/c from ED?: Yes When asked, does pt state using other controlled substances?: Yes If prescribed controlled substance>3 days was MAPS reviewed?: Prescribed <3 Days Referrals: Nonstaff,Physician [Primary Care Provider] - 1-2 days Time of Disposition: 23:47
[2024-04-24] MEDS: HYDROmorphone 1 MG/ML 1 ML SYRINGE IM STA (23:51)
[2024-04-24] MEDS: KETOROLAC 15 MG/ML 1 ML VIAL IM STA (23:51)
[2024-04-24] MEDS: ACET/COD 300 MG/30 MG STARTER PACK 6 TAB BTL PO STA (23:57)
[2024-04-24] MEDS: CYCLOBENZAPRINE 10MG STARTER 3 TAB BTL PO STA (23:58)
== END 2024-04-25 | disposition home or self-care (01) ==
LOC: EC 23:24
DX: G89.29 Other chronic pain (principal); M54.9 Dorsalgia, unspecified; Z88.0 Allergy status to penicillin
CPT/HCPCS: 99283; 96372 ×2; 99406; J1171; J1885

== ENCOUNTER 2024-05-01 17:06 | Emergency (ER) | payer OTHER ==
--- NOTE | 2024-05-01 17:46 | ED ---
Back Pain HPI - General Chief Complaint: Back Pain/Injury Stated Complaint: upper and lower back pain, left leg pain Time Seen by Provider: 05/01/24 17:43 Source: patient, RN notes reviewed - History of Present Illness Initial Comments: 43-year-old male well-known to ER history of chronic back pain presents for acute flare of back pain. States he was at physical therapy today where they were attempting to reproduce his pain and since then he has had pain mainly affecting his neck and lower back with radiation down the left leg. No injury or trauma. States this is similar in quality to his previous flareups. States he has upcoming appointment [facility] and with his PCP at the end of May. Denies bowel or bladder incontinence. Denies saddle anesthesia. - Related Data Home Medications Medication Instructions Recorded Confirmed Ibuprofen [Motrin Ib] 800 mg PO DIRECTED PRN 10/26/22 12/01/22 Previous Rx's Medication Instructions Recorded Cyclobenzaprine [Flexeril] 5 mg PO TID PRN #15 tablet 11/07/22 Lidocaine 5% Patch [Lidoderm 5% 1 patch TOPICAL DAILY PRN #7 patch 11/07/22 Patch] Acetaminophen Tab [Tylenol Tab] 1,000 mg PO Q6HR PRN #30 tablet 11/18/22 Lidocaine 5% Patch [Lidoderm 5% 1 patch TOPICAL DAILY PRN #7 patch 11/18/22 Patch] Naproxen [Naprosyn] 500 mg PO BID 30 Days #60 tablet 11/23/22 HYDROcodone/APAP 5-325MG [Sedan 1 tab PO Q6HR PRN 3 Days #12 tab 12/11/23 5-325] predniSONE [Deltasone] 20 mg PO BID #10 tab 03/17/24 HYDROcodone/APAP 5-325MG [Sedan 1 tab PO Q6HR PRN 3 Days #12 tab 04/20/24 5-325] Cyclobenzaprine [Flexeril] 10 mg PO TID PRN #30 tab 04/24/24 HYDROcodone/APAP 5-325MG [Sedan 1 tab PO Q6HR PRN 3 Days #12 tab 04/24/24 5-325] Lidocaine 4% Patch 1 patch TOPICAL DAILY PRN 7 Days 05/01/24 #7 patch Allergies Allergy/AdvReac Type Severity Reaction Status Date / Time Penicillins Allergy Unknown Verified 01/15/25 23:25 Review of Systems ROS Statement: Those systems with pertinent positive or pertinent negative responses have been documented in the HPI. ROS Other: All systems not noted in ROS Statement are negative. Past Medical History Past Medical History: Pneumonia Additional Past Medical History / Comment(s): chronic back pain- worse after last tx. dextroscoliosis History of Any Multi-Drug Resistant Organisms: None Reported Past Surgical History: Orthopedic Surgery Additional Past Surgical History / Comment(s): RT KNEE SURG. PAIN CLINIC PROC. Past Anesthesia/Blood Transfusion Reactions: No Reported Reaction Past Psychological History: Anxiety Smoking Status: Current every day smoker Past Alcohol Use History: None Reported Past Drug Use History: None Reported - Past Family History Mother Family Medical History: Liver Disease Additional Family Medical History / Comment(s): , liver failure from Hep C Father Family Medical History: Hypertension Additional Family Medical History / Comment(s): drinker General Exam General appearance: alert, in no apparent distress Head exam: Present: atraumatic, normocephalic, normal inspection Extremities exam: Present: normal inspection, full ROM, normal capillary refill. Absent: tenderness, pedal edema, joint swelling, calf tenderness Back exam: Present: normal inspection, full ROM. Absent: tenderness, CVA tenderness (R), CVA tenderness (L) Neurological exam: Present: alert, oriented X3 Psychiatric exam: Present: normal affect, normal mood Skin exam: Present: warm, dry, intact, normal color. Absent: rash Course Vital Signs 05/01/24 17:23 Temperature 98.9 F Pulse Rate 81 Respiratory 16 Rate Blood Pressure 137/94 O2 Sat by Pulse 98 Oximetry Medical Decision Making - Medical Decision Making Was pt. sent in by a medical professional or institution (, PA, PORTFOLIO MANAGER, urgent care, hospital, or [facility]...) When possible be specific @ -No Did you speak to anyone other than the patient for history (EMS, parent, family, police, friend...)? What history was obtained from this source @ -No Did you review nursing and triage notes (agree or disagree)? Why? @ -I reviewed and agree with nursing and triage notes Were old charts reviewed (outside hosp., previous admission, EMS record, old EKG, old radiological studies, urgent care reports/EKG's, [facility] records)? Report findings @ -No old charts were reviewed Differential Diagnosis (chest pain, altered mental status, abdominal pain women, abdominal pain men, vaginal bleeding, weakness, fever, dyspnea, syncope, headache, dizziness, GI bleed, back pain, seizure, CVA, palpatations, mental health, musculoskeletal)? @ -Differential Back Pain: Strain, zoster, cauda equina syndrome, epidural abscess, vertebral osteomyelitis, discitis, fracture, subluxation, disc herniation, DJD, spinal stenosis, dissection, AAA, pancreatitis, peptic ulcer disease, pyelonephritis, kidney stone, this is not meant to be an all-inclusive list. EKG interpreted by me (3pts min.). @ -None X-rays interpreted by me (1pt min.). @ -None done CT interpreted by me (1pt min.). @ -None done U/S interpreted by me (1pt. min.). @ -None done What testing was considered but not performed or refused? (CT, X-rays, U/S, labs)? Why? @ -None What meds were considered but not given or refused? Why? @ -None Did you discuss the management of the patient with other professionals (professionals i.e. , PA, PORTFOLIO MANAGER, lab, RT, psych nurse, social worker delinquency prevention, fabrication and assembly supervisor, teacher, compliance review officer, caseworker)? Give summary @ -No Was smoking cessation discussed for >3mins.? @ -No Was critical care preformed (if so, how long)? @ -No Were there social determinants of health that impacted care today? How? (Homelessness, low income, unemployed, alcoholism, drug addiction, transportation, low edu. Level, literacy, decrease access to med. care, [facility], rehab)? @ -No Was there de-escalation of care discussed even if they declined (Discuss DNR or withdrawal of care, Hospice)? DNR status @ -No What co-morbidities impacted this encounter? (DM, HTN, Smoking, COPD, CAD, Cancer, CVA, ARF, Chemo, Hep., AIDS, mental health diagnosis, sleep apnea, morbid obesity)? @ -None Was patient admitted / discharged? Hospital course, mention meds given and route, prescriptions, significant lab abnormalities, going to OR and other pertinent info. @ -43-year-old male with history of chronic back pain presents for acute on chronic back pain. No new injuries or traumas. Neurovascularly intact. No red flag symptoms such as bowel/bladder incontinence or saddle anesthesia. Patient was given dose of analgesics for supportive care, however discussed with patient that he must follow-up with PCP for long-term pain control. Prescribed lidocaine patches to use as needed for pain. Appropriate return precautions and follow-up care discussed. Case was discussed with my ED attending Dr. Quintero. Undiagnosed new problem with uncertain prognosis? @ -No Drug Therapy requiring intensive monitoring for toxicity (Heparin, Nitro, Insulin, Cardizem)? @ -No Were any procedures done? @ -No Diagnosis/symptom? @ -Acute on chronic back pain Acute, or Chronic, or Acute on Chronic? @ -Acute on chronic Uncomplicated (without systemic symptoms) or Complicated (systemic symptoms)? @ -Uncomplicated Side effects of treatment? @ -No Exacerbation, Progression, or Severe Exacerbation? @ -No Poses a threat to life or bodily function? How? (Chest pain, [place], [place], pneumonia, PE, COPD, DKA, ARF, appy, cholecystitis, CVA, Diverticulitis, Homicidal, Suicidal, threat to staff... and all critical care pts) @ -No Disposition Clinical Impression: Acute on chronic back pain Disposition: HOME SELF-CARE Condition: Stable Additional Instructions: Use lidocaine patches as needed for pain. Follow-up with PCP as discussed. Please return to the Emergency Department if symptoms worsen or any other concerns. Prescriptions: Lidocaine 4% Patch 1 patch TOPICAL DAILY PRN 7 Days #7 patch PRN Reason: Pain Is patient prescribed a controlled substance at d/c from ED?: No Referrals: Laura Gonzalez MD [Primary Care Provider] - 1-2 days Forms: Area PCPs Time of Disposition: 18:08
[2024-05-01] MEDS: HYDROmorphone 1 MG/ML 1 ML SYRINGE IM STA (17:53)
[2024-05-01] MEDS: KETOROLAC 15 MG/ML 1 ML VIAL IM STA (17:54)
[2024-05-01 18:35] VITALS: BP 140/88; PULSE 68; RESP 18; TEMP 98.1
== END 2024-05-01 18:34 | disposition home or self-care (01) ==
LOC: EC 17:06
DX: G89.29 Other chronic pain (principal); M54.50 Low back pain, unspecified; M54.6 Pain in thoracic spine; F17.200 Nicotine dependence, unspecified, uncomplicated; Z88.0 Allergy status to penicillin
CPT/HCPCS: 99283; 96372 ×2; J1171; J1885

== ENCOUNTER 2024-05-05 18:54 | Emergency (ER) | payer OTHER ==
[2024-05-05 19:06] VITALS: RESP 18
--- NOTE | 2024-05-05 19:12 | ED ---
Neck Injury/Pain HPI - General Chief Complaint: Neuro Symptoms/Deficit Stated Complaint: whole left side numb Time Seen by Provider: 05/05/24 19:07 Source: RN notes reviewed, old records reviewed Mode of arrival: ambulatory Limitations: no limitations - History of Present Illness Initial Comments: This is a 43-year-old male to ER for acute on chronic neck pain severe neck pain history of back pain no traumatic injuries. Difficulty with range of motion of the neck due to severe muscle spasm and tightness MD Complaint: neck pain, neck injury -: week(s) Radiation: right lateral, occiput Severity: severe Severity scale (1-10): 6 Quality: stabbing Consistency: constant Improves With: none Worsens With: none Associated Symptoms: none Treatments Prior to Arrival: none - Related Data Home Medications Medication Instructions Recorded Confirmed Pregabalin [Lyrica] 150 mg PO BID 05/05/24 05/05/24 Allergies Allergy/AdvReac Type Severity Reaction Status Date / Time Penicillins Allergy Rash/Hives Verified 05/05/24 20:01 Review of Systems ROS Statement: Those systems with pertinent positive or pertinent negative responses have been documented in the HPI. ROS Other: All systems not noted in ROS Statement are negative. Past Medical History Past Medical History: Pneumonia Additional Past Medical History / Comment(s): chronic back pain- worse after last tx. dextroscoliosis History of Any Multi-Drug Resistant Organisms: None Reported Past Surgical History: Orthopedic Surgery Additional Past Surgical History / Comment(s): RT KNEE SURG. PAIN CLINIC PROC. Past Anesthesia/Blood Transfusion Reactions: No Reported Reaction Past Psychological History: Anxiety Smoking Status: Current every day smoker Past Alcohol Use History: Rare Past Drug Use History: None Reported - Past Family History Mother Family Medical History: Liver Disease Additional Family Medical History / Comment(s): , liver failure from Hep C Father Family Medical History: Hypertension Additional Family Medical History / Comment(s): drinker General Exam Limitations: no limitations General appearance: alert, in no apparent distress Head exam: Present: atraumatic, normocephalic, normal inspection Eye exam: Present: normal appearance, PERRL, EOMI. Absent: scleral icterus, conjunctival injection, periorbital swelling ENT exam: Present: normal exam, mucous membranes moist Neck exam: Present: normal inspection. Absent: tenderness, meningismus, lymphadenopathy Respiratory exam: Present: normal lung sounds bilaterally. Absent: respiratory distress, wheezes, rales, rhonchi, stridor Cardiovascular Exam: Present: regular rate, normal rhythm, normal heart sounds. Absent: systolic murmur, diastolic murmur, rubs, gallop, clicks GI/Abdominal exam: Present: soft, normal bowel sounds. Absent: distended, tenderness, guarding, rebound, rigid Extremities exam: Present: normal inspection, full ROM, normal capillary refill. Absent: tenderness, pedal edema, joint swelling, calf tenderness Back exam: Present: normal inspection Neurological exam: Present: alert, oriented X3, CN II-XII intact Psychiatric exam: Present: normal affect, normal mood Skin exam: Present: warm, dry, intact, normal color. Absent: rash Course Vital Signs 05/05/24 19:01 Temperature 98.6 F Pulse Rate 94 Respiratory 18 Rate Blood Pressure 157/83 O2 Sat by Pulse 100 Oximetry - Reevaluation(s) Reevaluation #1: 05/05/24 20:29 Medical records reviewed Reevaluation #2: 05/05/24 20:29 Patient symptoms improved Reevaluation #3: 05/05/24 20:30 Patient informed of results questions answered Reevaluation #4: Was pt. sent in by a medical professional or institution (, PA, GROUP EXERCISE INSTRUCTOR, urgent care, hospital, or long term...) When possible be specific @ -no Did you speak to anyone other than the patient for history (EMS, parent, family, police, friend...)? What history was obtained from this source @ -no Did you review nursing and triage notes (agree or disagree)? Why? @ -agree Are old charts reviewed (outside hosp., previous admission, EMS record, old EKG, old radiological studies, urgent care reports/EKG's, long term records)? Report findings @ -yes Differential Diagnosis (chest pain, altered mental status, abdominal pain women, abdominal pain men, vaginal bleeding, weakness, fever, dyspnea, syncope, headache, dizziness, GI bleed, back pain, seizure, CVA, palpatations, mental health, musculoskeletal)? @ -prior EKG interpreted by me (3pts min.). @ -yes X-rays interpreted by me (1pt min.). @ -yes negative for acute disease CT interpreted by me (1pt min.). @ -no U/S interpreted by me (1pt. min.). @ -no What testing was considered but not performed or refused? (CT, X-rays, U/S, labs)? Why? @ -none What meds were considered but not given or refused? Why? @ -none Did you discuss the management of the patient with other professionals (professionals i.e. Dr., PA, GROUP EXERCISE INSTRUCTOR, lab, RT, psych nurse, high school social science teacher, grant writer, teacher, plant protection officer, case coordinator)? Give summary @ -no Was smoking cessation discussed for >3mins.? @ -no Was critical care preformed (if so, how long)? @ -no Were there social determinants of health that impacted care today? How? (Homelessness, low income, unemployed, alcoholism, drug addiction, transportation, low edu. Level, literacy, decrease access to med. care, group home, rehab)? @ -none Was there de-escalation of care discussed even if they declined (Discuss DNR or withdrawal of care, Hospice)? DNR status @ -no What co-morbidities impacted this encounter? (DM, HTN, Smoking, COPD, CAD, Cancer, CVA, ARF, Chemo, Hep., AIDS, mental health diagnosis, sleep apnea, morbid obesity)? @ -none Was patient admitted / discharged? Hospital course, mention meds given and route, prescriptions, significant lab abnormalities, going to OR and other pertinent info. @ - Undiagnosed new problem with uncertain prognosis? @ -no Drug Therapy requiring intensive monitoring for toxicity (Heparin, Nitro, Insulin, Cardizem)? @ -no Were any procedures done? @ -no Diagnosis/symptom? @ - Acute, or Chronic, or Acute on Chronic? @ -Acute Uncomplicated (without systemic symptoms) or Complicated (systemic symptoms)? @ -Complicated Side effects of treatment? @ -no Exacerbation, Progression, or Severe Exacerbation? @ -exacerbation Poses a threat to life or bodily function? How? (Chest pain, [place], [place], pneumonia, PE, COPD, DKA, ARF, appy, cholecystitis, CVA, Diverticulitis, Homicidal, Suicidal, threat to staff... and all critical care pts) @ -yes Medical Decision Making - Medical Decision Making 43 male with uncontrolled neck pain patient given pain control here in the ER and can be discharged home - EKG Data EKG shows normal: sinus rhythm (CT C-spine negative for acute disease) - Radiology Data Radiology results: report reviewed, image reviewed Disposition Clinical Impression: Chronic back pain, Low back pain, Acute on chronic back pain, Neck pain Disposition: HOME SELF-CARE Condition: Fair Instructions (If sedation given, give patient instructions): Cervical Sprain (ED), Neck Pain (ED) Is patient prescribed a controlled substance at d/c from ED?: No Referrals: None,Stated [Primary Care Provider] - 1-2 days Time of Disposition: 20:30
[2024-05-05] MEDS: KETOROLAC 15 MG/ML 1 ML VIAL IM STA (19:23)
[2024-05-05] MEDS: ACETAMINOPHEN TAB 500 MG TAB PO STA (19:25)
[2024-05-05] MEDS: traMADol 50 MG TAB PO STA (19:25)
--- NOTE | 2024-05-05 20:10 | CT ---
EXAMINATION TYPE: CT cervical spine wo con DATE OF EXAM: 05/05/2024 7:44 PM COMPARISON: Previous CT cervical spine study dated and . CLINICAL INDICATION: Male, 43 years old with history of pain; L hand numbness, pain to L arm and neck . TECHNIQUE: Axial CT images from the skull base to the inferior aspect of T2 we obtained without intra venous contrast. Coronal and sagittal reformatted images were also reviewed. CT DLP: 327.5 mGycm, Automated exposure control for dose reduction was used. FINDINGS: Fracture: None. Osseous structures: Unremarkable Vertebral alignment: Mild exaggerated lordotic curvature. Otherwise, unremarkable. Spinal canal/Neural Foramina: No evidence of high-grade spinal canal narrowing. No evidence for high- grade neural foraminal stenosis. Overall, evaluation of the spinal canal limited due to streak artifa ct. Neck soft tissues: Prevertebral soft tissues are within normal limits. Other: The airway is patent. The lung apices are clear. IMPRESSION: 1. No acute fracture or traumatic subluxation of the cervical spine. 2. No CT evidence of high-grade spinal canal or neural foraminal stenosis. Consider outpatient MRI c ervical spine study of symptoms persist or as clinical warranted. [facility], , 05/05/2024 8:08 PM
[2024-05-05] MEDS: HYDROmorphone 1 MG/ML 1 ML SYRINGE IM STA (20:58)
[2024-05-05] MEDS: ACET/COD 300 MG/30 MG STARTER PACK 6 TAB BTL PO STA (20:59)
[2024-05-05] MEDS: IBUPROFEN 600 MG STARTER PACK 4 TAB BTL PO STA (20:59)
[2024-05-05] MEDS: traMADol 50 MG STARTER PACK 3 TAB BTL PO STA (20:59)
[2024-05-05 21:15] VITALS: BP 134/89; PULSE 62; TEMP 97.8
== END 2024-05-05 21:10 | disposition home or self-care (01) ==
LOC: EC 18:54
DX: G89.29 Other chronic pain (principal); M54.50 Low back pain, unspecified; M54.2 Cervicalgia; F17.200 Nicotine dependence, unspecified, uncomplicated; Z88.0 Allergy status to penicillin
CPT/HCPCS: 72125; 99284; 96372; J1171; J1885

== ENCOUNTER 2024-05-12 16:46 | Emergency (ER) | payer OTHER ==
[2024-05-12 16:57] VITALS: BP 158/103; PULSE 90; RESP 16; TEMP 98.6
--- NOTE | 2024-05-12 18:16 | ED ---
Neck Injury/Pain HPI - General Chief Complaint: Neck Pain/Injury Stated Complaint: left eitan pain Time Seen by Provider: 05/12/24 17:50 Mode of arrival: ambulatory Limitations: no limitations - History of Present Illness Initial Comments: 43-year-old male presenting with chief complaint of left-sided neck and back pain. This is chronic for this patient. He has had no new injury or trauma. Is currently attending physical therapy and following with [facility] for his chronic neck and back pain. No loss of bowel or bladder control or saddle paresthesia. He has increased pain with range of motion. No, chills, nausea, vomiting abdominal pain, chest pain, difficulty breathing. - Related Data Home Medications Medication Instructions Recorded Confirmed Pregabalin [Lyrica] 150 mg PO BID 05/05/24 05/05/24 Allergies Allergy/AdvReac Type Severity Reaction Status Date / Time Penicillins Allergy Rash/Hives Verified 05/12/24 16:57 Review of Systems ROS Statement: Those systems with pertinent positive or pertinent negative responses have been documented in the HPI. ROS Other: All systems not noted in ROS Statement are negative. Past Medical History Past Medical History: Pneumonia Additional Past Medical History / Comment(s): chronic back pain- worse after last tx. dextroscoliosis History of Any Multi-Drug Resistant Organisms: None Reported Past Surgical History: Orthopedic Surgery Additional Past Surgical History / Comment(s): RT KNEE SURG. PAIN CLINIC PROC. Past Anesthesia/Blood Transfusion Reactions: No Reported Reaction Past Psychological History: Anxiety Smoking Status: Current every day smoker Past Alcohol Use History: Rare Past Drug Use History: None Reported - Past Family History Mother Family Medical History: Liver Disease Additional Family Medical History / Comment(s): , liver failure from Hep C Father Family Medical History: Hypertension Additional Family Medical History / Comment(s): drinker General Exam Limitations: no limitations General appearance: alert, in no apparent distress Head exam: Present: atraumatic, normocephalic, normal inspection Eye exam: Present: normal appearance, EOMI. Absent: periorbital swelling Neck exam: Present: tenderness. Absent: full ROM Respiratory exam: Absent: respiratory distress Cardiovascular Exam: Present: regular rate Back exam: Present: normal inspection, tenderness Neurological exam: Present: alert, oriented X3 Psychiatric exam: Present: normal affect, normal mood Skin exam: Present: warm, dry, normal color Course Vital Signs 05/12/24 16:55 Temperature 98.6 F Pulse Rate 90 Respiratory 16 Rate Blood Pressure 158/103 O2 Sat by Pulse 100 Oximetry Medical Decision Making - Medical Decision Making Was pt. sent in by a medical professional or institution (, AYDEE, BEER COOLER, urgent care, hospital, or group home...) When possible be specific @ -No Did you speak to anyone other than the patient for history (EMS, parent, family, police, friend...)? What history was obtained from this source @ -No Did you review nursing and triage notes (agree or disagree)? Why? @ -I reviewed and agree with nursing and triage notes Were old charts reviewed (outside hosp., previous admission, EMS record, old EKG, old radiological studies, urgent care reports/EKG's, group home records)? Report findings @ -No old charts were reviewed Differential Diagnosis (chest pain, altered mental status, abdominal pain women, abdominal pain men, vaginal bleeding, weakness, fever, dyspnea, syncope, headache, dizziness, GI bleed, back pain, seizure, CVA, palpatations, mental health, musculoskeletal)? @ - MDM Differential Back Pain: Strain, zoster, cauda equina syndrome, epidural abscess, vertebral osteomyelitis, discitis, fracture, subluxation, disc herniation, DJD, spinal stenosis, dissection, AAA, pancreatitis, peptic ulcer disease, pyelonephritis, kidney stone this is not meant to be an all-inclusive list. EKG interpreted by me (3pts min.). @ -As above X-rays interpreted by me (1pt min.). @ -None done CT interpreted by me (1pt min.). @ -None done U/S interpreted by me (1pt. min.). @ -None done What testing was considered but not performed or refused? (CT, X-rays, U/S, labs)? Why? @ -None What meds were considered but not given or refused? Why? @ -None Did you discuss the management of the patient with other professionals (professionals i.e. AYDEE Esqueda, BEER COOLER, lab, RT, psych nurse, social media marketing specialist, residential roofer, teacher, chief fundraising officer, nurse case manager)? Give summary @ -No Was smoking cessation discussed for >3mins.? @ -No Was critical care preformed (if so, how long)? @ -No Were there social determinants of health that impacted care today? How? (Homelessness, low income, unemployed, alcoholism, drug addiction, transportation, low edu. Level, literacy, decrease access to med. care, correction, rehab)? @ -No Was there de-escalation of care discussed even if they declined (Discuss DNR or withdrawal of care, Hospice)? DNR status @ -No What co-morbidities impacted this encounter? (DM, HTN, Smoking, COPD, CAD, Cancer, CVA, ARF, Chemo, Hep., AIDS, mental health diagnosis, sleep apnea, morbid obesity)? @ -None Was patient admitted / discharged? Hospital course, mention meds given and route, prescriptions, significant lab abnormalities, going to OR and other pertinent info. @ -43-year-old male with history of chronic neck and back pain, presenting with chief complaint of exacerbation of his chronic pain. No red flag symptoms and no new features to his pain. Patient is treated with analgesia here in the ER and will follow-up with his cad specialist and physical therapist. Follow-up with PCP. Report back to ER with any new or worsening symptoms. Discussed return parameters and answered all questions. Patient conveyed verbal understanding and agreed to the plan. I discussed this case in detail with my attending Dr. Davis Undiagnosed new problem with uncertain prognosis? @ -No Drug Therapy requiring intensive monitoring for toxicity (Heparin, Nitro, Insulin, Cardizem)? @ -No Were any procedures done? @ -No Diagnosis/symptom? @ -Neck and back pain Acute, or Chronic, or Acute on Chronic? @ -Chronic Uncomplicated (without systemic symptoms) or Complicated (systemic symptoms)? @ -Uncomplicated Side effects of treatment? @ -No Exacerbation, Progression, or Severe Exacerbation? @ -No Poses a threat to life or bodily function? How? (Chest pain, [place], [place], pneumonia, PE, COPD, DKA, ARF, appy, cholecystitis, CVA, Diverticulitis, Homicidal, Suicidal, threat to staff... and all critical care pts) @ -No Disposition Clinical Impression: Acute on chronic back pain Disposition: HOME SELF-CARE Condition: Good Additional Instructions: Follow-up with your PCP and orthopedist. Report back to ER with any new or worsening symptoms. Is patient prescribed a controlled substance at d/c from ED?: No Referrals: Laura Gonzalez MD [Primary Care Provider] - 1-2 days Rafael Gay DO [Doctor of Osteopathic Medicine] - 1-2 days Time of Disposition: 18:16
[2024-05-12] MEDS: KETOROLAC 15 MG/ML 1 ML VIAL IM STA (18:26)
[2024-05-12] MEDS: HYDROmorphone 1 MG/ML 1 ML SYRINGE IM STA (18:27)
== END 2024-05-12 18:35 | disposition home or self-care (01) ==
LOC: EC 16:46
DX: M54.9 Dorsalgia, unspecified (principal); F17.200 Nicotine dependence, unspecified, uncomplicated; Z88.0 Allergy status to penicillin
CPT/HCPCS: 99283; 96372; J1171; J1885

== ENCOUNTER 2024-05-13 15:36 | Emergency (ER) | payer OTHER ==
[2024-05-13 15:46] VITALS: TEMP 97.9
--- NOTE | 2024-05-13 16:44 | ED ---
Recheck HPI - General Chief Complaint: Fall Stated Complaint: Left Body Pain Time Seen by Provider: 05/13/24 16:25 Source: patient, RN notes reviewed, old records reviewed Mode of arrival: ambulatory Limitations: no limitations - History of Present Illness Initial Comments: This is a 43-year-old male presenting for recurrent falls. No significant traum atic injury from fall but exacerbation of chronic pain. Chronic neck pain chronic back pain history of ER visit for same. Patient states he is having difficulty finding primary care provider and following with orthopedics in regards to chronic pain MD Complaint: medication refill request -: days(s) Returns Today for: request for prescription, persistent/worsening pain related to initial visit Symptoms Since Prior Visit: worsening pain Context: ran out of medication Treatments Prior to Arrival: Given Pain Meds on - Related Data Home Medications Medication Instructions Recorded Confirmed Pregabalin [Lyrica] 150 mg PO BID 05/05/24 05/05/24 Previous Rx's Medication Instructions Recorded Ketorolac [Toradol] 10 mg PO Q6HR PRN #20 tab 05/13/24 traMADol HCl [Ultram] 50 mg PO Q4HR PRN 3 Days #18 tab 05/13/24 Allergies Allergy/AdvReac Type Severity Reaction Status Date / Time Penicillins Allergy Rash/Hives Verified 05/13/24 15:46 Review of Systems ROS Statement: Those systems with pertinent positive or pertinent negative responses have been documented in the HPI. ROS Other: All systems not noted in ROS Statement are negative. Past Medical History Past Medical History: Pneumonia Additional Past Medical History / Comment(s): chronic back pain- worse after last tx. dextroscoliosis History of Any Multi-Drug Resistant Organisms: None Reported Past Surgical History: Orthopedic Surgery Additional Past Surgical History / Comment(s): RT KNEE SURG. PAIN CLINIC PROC. Past Anesthesia/Blood Transfusion Reactions: No Reported Reaction Past Psychological History: Anxiety Smoking Status: Current every day smoker Past Alcohol Use History: Rare Past Drug Use History: None Reported - Past Family History Mother Family Medical History: Liver Disease Additional Family Medical History / Comment(s): , liver failure from Hep C Father Family Medical History: Hypertension Additional Family Medical History / Comment(s): drinker General Exam Limitations: no limitations General appearance: alert, in no apparent distress Head exam: Present: atraumatic, normocephalic, normal inspection Eye exam: Present: normal appearance, PERRL, EOMI. Absent: scleral icterus, conjunctival injection, periorbital swelling ENT exam: Present: normal exam, mucous membranes moist Neck exam: Present: normal inspection. Absent: tenderness, meningismus, lymphadenopathy Respiratory exam: Present: normal lung sounds bilaterally. Absent: respiratory distress, wheezes, rales, rhonchi, stridor Cardiovascular Exam: Present: regular rate, normal rhythm, normal heart sounds. Absent: systolic murmur, diastolic murmur, rubs, gallop, clicks GI/Abdominal exam: Present: soft, normal bowel sounds. Absent: distended, tenderness, guarding, rebound, rigid Extremities exam: Present: normal inspection, full ROM, normal capillary refill. Absent: tenderness, pedal edema, joint swelling, calf tenderness Back exam: Present: normal inspection Neurological exam: Present: alert, oriented X3, CN II-XII intact Psychiatric exam: Present: normal affect, normal mood Skin exam: Present: warm, dry, intact, normal color. Absent: rash Course Vital Signs 05/13/24 15:43 Temperature 97.9 F Pulse Rate 88 Respiratory 16 Rate Blood Pressure 145/93 O2 Sat by Pulse 100 Oximetry - Reevaluation(s) Reevaluation #1: 05/13/24 16:47 Medical records reviewed Reevaluation #2: 05/13/24 16:47 Patient pain is improved Reevaluation #3: 05/13/24 16:47 Patient informed of results questions answered Reevaluation #4: Was pt. sent in by a medical professional or institution (, PA, LAY UPS ASSEMBLER, urgent care, hospital, or correction...) When possible be specific @ -no Did you speak to anyone other than the patient for history (EMS, parent, family, police, friend...)? What history was obtained from this source @ -no Did you review nursing and triage notes (agree or disagree)? Why? @ -agree Are old charts reviewed (outside hosp., previous admission, EMS record, old EKG, old radiological studies, urgent care reports/EKG's, correction records)? Report findings @ -yes Differential Diagnosis (chest pain, altered mental status, abdominal pain women, abdominal pain men, vaginal bleeding, weakness, fever, dyspnea, syncope, headache, dizziness, GI bleed, back pain, seizure, CVA, palpatations, mental health, musculoskeletal)? @ -prior EKG interpreted by me (3pts min.). @ -yes X-rays interpreted by me (1pt min.). @ -yes negative for acute disease CT interpreted by me (1pt min.). @ -no U/S interpreted by me (1pt. min.). @ -no What testing was considered but not performed or refused? (CT, X-rays, U/S, labs)? Why? @ -none What meds were considered but not given or refused? Why? @ -none Did you discuss the management of the patient with other professionals (professionals i.e. Dr., PA, LAY UPS ASSEMBLER, lab, RT, psych nurse, social work therapist, publication editor, teacher, facilities officer, lining caser)? Give summary @ -no Was smoking cessation discussed for >3mins.? @ -no Was critical care preformed (if so, how long)? @ -no Were there social determinants of health that impacted care today? How? (Homelessness, low income, unemployed, alcoholism, drug addiction, transportation, low edu. Level, literacy, decrease access to med. care, group home, rehab)? @ -none Was there de-escalation of care discussed even if they declined (Discuss DNR or withdrawal of care, Hospice)? DNR status @ -no What co-morbidities impacted this encounter? (DM, HTN, Smoking, COPD, CAD, Cancer, CVA, ARF, Chemo, Hep., AIDS, mental health diagnosis, sleep apnea, morbid obesity)? @ -none Was patient admitted / discharged? Hospital course, mention meds given and route, prescriptions, significant lab abnormalities, going to OR and other pertinent info. @ - Undiagnosed new problem with uncertain prognosis? @ -no Drug Therapy requiring intensive monitoring for toxicity (Heparin, Nitro, Insulin, Cardizem)? @ -no Were any procedures done? @ -no Diagnosis/symptom? @ - Acute, or Chronic, or Acute on Chronic? @ -Acute Uncomplicated (without systemic symptoms) or Complicated (systemic symptoms)? @ -Complicated Side effects of treatment? @ -no Exacerbation, Progression, or Severe Exacerbation? @ -exacerbation Poses a threat to life or bodily function? How? (Chest pain, [place], [place], pneumonia, PE, COPD, DKA, ARF, appy, cholecystitis, CVA, Diverticulitis, Homicidal, Suicidal, threat to staff... and all critical care pts) @ -yes Reevaluation #5: Differential Back Pain: Strain, zoster, cauda equina syndrome, epidural abscess, vertebral osteomyelitis, discitis, fracture, subluxation, disc herniation, DJD, spinal stenosis, dissection, AAA, pancreatitis, peptic ulcer disease, pyelonephritis, kidney stone, this is not meant to be an all-inclusive list. Medical Decision Making - Medical Decision Making 43 male with acute on chronic neck pain acute on chronic back pain. Patient will be given pain control to continue follow-up with outpatient rehabilitation, PT OT and orthopedics Disposition Clinical Impression: Chronic back pain, Low back pain, Acute on chronic back pain, Neck pain, Fall Disposition: HOME SELF-CARE Condition: Fair Instructions (If sedation given, give patient instructions): Chronic Back Pain (DC), Chronic Neck Pain (DC) Prescriptions: Ketorolac [Toradol] 10 mg PO Q6HR PRN #20 tab PRN Reason: Pain traMADol HCl [Ultram] 50 mg PO Q4HR PRN 3 Days #18 tab PRN Reason: Pain Is patient prescribed a controlled substance at d/c from ED?: Yes When asked, does pt state using other controlled substances?: No If prescribed controlled substance>3 days was MAPS reviewed?: Prescribed <3 Days If Rx opioid, was Start Talking consent form obtained?: Yes Referrals: Laura Gonzalez MD [Primary Care Provider] - 1-2 days Time of Disposition: 16:50
[2024-05-13] MEDS: CYCLOBENZAPRINE 10MG STARTER 3 TAB BTL PO STA (16:50)
[2024-05-13] MEDS: KETOROLAC 15 MG/ML 1 ML VIAL IM STA (16:50)
[2024-05-13] MEDS: traMADol 50 MG TAB PO STA (16:51)
[2024-05-13] MEDS: IBUPROFEN 600 MG STARTER PACK 4 TAB BTL PO STA (16:51)
[2024-05-13] MEDS: traMADol 50 MG STARTER PACK 3 TAB BTL PO STA (16:51)
[2024-05-13 16:59] VITALS: BP 140/90; PULSE 90; RESP 20
== END 2024-05-13 17:08 | disposition home or self-care (01) ==
LOC: EC 15:36
DX: G89.29 Other chronic pain (principal); M54.50 Low back pain, unspecified; M54.2 Cervicalgia; F17.200 Nicotine dependence, unspecified, uncomplicated; Z88.0 Allergy status to penicillin; X58.XXXA Exposure to other specified factors, initial encounter
CPT/HCPCS: 99283; 96372; J1885

== ENCOUNTER 2024-05-28 23:49 | Emergency (ER) | payer OTHER ==
[2024-05-28 23:52] VITALS: BP 140/91; PULSE 78; RESP 16; TEMP 97.5
--- NOTE | 2024-05-29 00:26 | ED ---
Back Pain HPI - General Chief Complaint: Back Pain/Injury Stated Complaint: Back pain Time Seen by Provider: 05/29/24 00:24 Source: patient, RN notes reviewed, old records reviewed Limitations: no limitations - History of Present Illness Initial Comments: 43-year-old male presented the ER for evaluation of back pain. He states has been an ongoing issue and he is following up with Dr. Gay. Patient states he recently moved in with a friend who has stairs in his house. He states doing the stairs frequently has aggravated his back pain. He reports pain to his lumbar spine with radiation down mainly left leg. He states he has been taking prescribed Flexeril and ketorolac without relief. Patient states he is having insurance issues obtaining MRI and Lyrica prescription through orthopedics. Patient states he was in physical therapy but was discharged given severity of discomfort. He denies any new injuries or traumas. Denies any saddle paresthesias, bowel or bladder incontinence/retention, fevers or weakness. - Related Data Home Medications Medication Instructions Recorded Confirmed Pregabalin [Lyrica] 150 mg PO BID 05/05/24 05/05/24 Previous Rx's Medication Instructions Recorded Ketorolac [Toradol] 10 mg PO Q6HR PRN #20 tab 05/13/24 traMADol HCl [Ultram] 50 mg PO Q4HR PRN 3 Days #18 tab 05/13/24 Allergies Allergy/AdvReac Type Severity Reaction Status Date / Time Penicillins Allergy Rash/Hives Verified 05/28/24 23:52 Review of Systems ROS Statement: Those systems with pertinent positive or pertinent negative responses have been documented in the HPI. ROS Other: All systems not noted in ROS Statement are negative. Past Medical History Past Medical History: Pneumonia Additional Past Medical History / Comment(s): chronic back pain- worse after last tx. dextroscoliosis History of Any Multi-Drug Resistant Organisms: None Reported Past Surgical History: Orthopedic Surgery Additional Past Surgical History / Comment(s): RT KNEE SURG. PAIN CLINIC PROC. Past Anesthesia/Blood Transfusion Reactions: No Reported Reaction Past Psychological History: Anxiety Smoking Status: Current every day smoker Past Alcohol Use History: Rare Past Drug Use History: None Reported - Past Family History Mother Family Medical History: Liver Disease Additional Family Medical History / Comment(s): , liver failure from Hep C Father Family Medical History: Hypertension Additional Family Medical History / Comment(s): drinker General Exam Limitations: no limitations General appearance: alert, in no apparent distress Respiratory exam: Present: normal lung sounds bilaterally. Absent: respiratory distress, wheezes, rales, rhonchi, stridor Cardiovascular Exam: Present: regular rate, normal rhythm, normal heart sounds. Absent: systolic murmur, diastolic murmur, rubs, gallop, clicks Extremities exam: Present: normal inspection, full ROM, normal capillary refill (2+ PT/DP pulse bilaterally). Absent: tenderness, pedal edema, joint swelling, calf tenderness Back exam: Present: normal inspection, tenderness (Lumbar spine right pelvic girdle) Neurological exam: Present: alert, oriented X3, CN II-XII intact Skin exam: Present: warm, dry, intact, normal color. Absent: rash Course Vital Signs 05/28/24 23:50 Temperature 97.5 F L Pulse Rate 78 Respiratory 16 Rate Blood Pressure 140/91 O2 Sat by Pulse 99 Oximetry Medical Decision Making - Medical Decision Making Was pt. sent in by a medical professional or institution (, PA, COURT RECORDING MONITOR, urgent care, hospital, or senior living...) When possible be specific @ -No Did you speak to anyone other than the patient for history (EMS, parent, family, police, friend...)? What history was obtained from this source @ -No Did you review nursing and triage notes (agree or disagree)? Why? @ -I reviewed and agree with nursing and triage notes Were old charts reviewed (outside hosp., previous admission, EMS record, old EKG, old radiological studies, urgent care reports/EKG's, senior living records)? Report findings @ -Old charts reviewed Differential Diagnosis (chest pain, altered mental status, abdominal pain women, abdominal pain men, vaginal bleeding, weakness, fever, dyspnea, syncope, headache, dizziness, GI bleed, back pain, seizure, CVA, palpatations, mental health, musculoskeletal)? @ -Differential Back Pain:Strain, zoster, cauda equina syndrome, epidural abscess, vertebral osteomyelitis, discitis, fracture, subluxation, disc herniation, DJD, spinal stenosis, dissection, AAA, pancreatitis, peptic ulcer disease, pyelonephritis, kidney stone, this is not meant to be an all-inclusive list. EKG interpreted by me (3pts min.). @ -[None done X-rays interpreted by me (1pt min.). @ -None done CT interpreted by me (1pt min.). @ -None done U/S interpreted by me (1pt. min.). @ -None done What testing was considered but not performed or refused? (CT, X-rays, U/S, labs)? Why? @ -Imaging considered but not performed as patient has no red flag symptoms indicative of cauda equina syndrome. No new injuries or traumas. What meds were considered but not given or refused? Why? @ -None Did you discuss the management of the patient with other professionals (professionals i.e. Dr., PA, COURT RECORDING MONITOR, lab, RT, psych nurse, social welfare research worker, oil laboratory analyst, teacher, asset protection officer, director case management)? Give summary @ -No Was smoking cessation discussed for >3mins.? @ -No Was critical care preformed (if so, how long)? @ -No Were there social determinants of health that impacted care today? How? (H omelessness, low income, unemployed, alcoholism, drug addiction, transportation, low edu. Level, literacy, decrease access to med. care, detention, rehab)? @ -No Was there de-escalation of care discussed even if they declined (Discuss DNR or withdrawal of care, Hospice)? DNR status @ -No What co-morbidities impacted this encounter? (DM, HTN, Smoking, COPD, CAD, Cancer, CVA, ARF, Chemo, Hep., AIDS, mental health diagnosis, sleep apnea, morbid obesity)? @ -None Was patient admitted / discharged? Hospital course, mention meds given and route, prescriptions, significant lab abnormalities, going to OR and other pertinent info. @ -Discharged. 43 year old male presenting to the ER for evaluation of back pain. Patient has chronic back issues and is seeking pain control. Vitals within acceptable limits. No red flag symptoms indicative of cauda equina syndrome. Neurovascularly intact. Patient given symptomatic control in the ER. Patient advised to follow-up closely with orthopedics. Patient discharged with a starter pack of tramadol. Strict return parameters discussed. Patient discharged stable condition. Patient verbally expressed understanding agree with care plan. Case discussed with ED attending, Dr. Davis. Undiagnosed new problem with uncertain prognosis? @ -No Drug Therapy requiring intensive monitoring for toxicity (Heparin, Nitro, Insulin, Cardizem)? @ -No Were any procedures done? @ -No Diagnosis/symptom? @ -Back pain Acute, or Chronic, or Acute on Chronic? @ -Chronic Uncomplicated (without systemic symptoms) or Complicated (systemic symptoms)? @ -Uncomplicated Side effects of treatment? @ -No Exacerbation, Progression, or Severe Exacerbation? @ -No Poses a threat to life or bodily function? How? (Chest pain, [place], [place], pneumonia, PE, COPD, DKA, ARF, appy, cholecystitis, CVA, Diverticulitis, Homicidal, Suicidal, threat to staff... and all critical care pts) @ -No Disposition Clinical Impression: Chronic back pain Disposition: HOME SELF-CARE Condition: Stable Additional Instructions: Follow-up with orthopedics. Return to the ER for any new or worsening concerns. Is patient prescribed a controlled substance at d/c from ED?: No Referrals: Laura Gonzalez MD [Primary Care Provider] - 1-2 days Time of Disposition: 00:44
[2024-05-29] MEDS: LIDOCAINE 4% PATCH TOPICAL ONE (00:39)
[2024-05-29] MEDS: DEXAMETHASONE SOD PHOSPHATE 4 MG/ML 1 ML VIAL IM STA (00:40)
[2024-05-29] MEDS: HYDROmorphone 1 MG/ML 1 ML SYRINGE IM STA (00:40)
[2024-05-29] MEDS: traMADol 50 MG STARTER PACK 3 TAB BTL PO STA (01:15)
== END 2024-05-29 01:21 | disposition home or self-care (01) ==
LOC: EC 23:49
DX: G89.29 Other chronic pain (principal); M54.50 Low back pain, unspecified; F17.200 Nicotine dependence, unspecified, uncomplicated; Z88.0 Allergy status to penicillin
CPT/HCPCS: 99284; 96372 ×2; J1100; J1171

== ENCOUNTER → 2024-06-07 | Outpatient (CLI) | payer OTHER ==
--- NOTE | 2024-06-07 10:09 | MR ---
EXAMINATION TYPE: MR cervical spine wo con DATE OF EXAM: 06/07/2024 9:15 AM COMPARISON: None. CLINICAL INDICATION: Male, 43 years old with history of M47.22 OTHER SPONDYLOSIS WITH RADICULOPATHY, CERVI, Neck pain into left arm TECHNIQUE: Multiplanar multiecho imaging on a 3.0 Olimpia magnet is performed through the cervical spin e. IV Contrast: mL (None, if empty) FINDINGS: The craniovertebral junction is normal. Vertebral body alignment is normal. C7-T1: No focal disc herniation or significant disc bulge is evident. No spinal canal stenosis or n eural foraminal stenosis is present. C6-7: No focal disc herniation or significant disc bulge is evident. No spinal canal stenosis. There appears to be some uncovertebral joint hypertrophy with moderate bilateral foraminal narrowing. Rubin elate for radicular symptoms. C5-6: No focal disc herniation or significant disc bulge is evident. No spinal canal stenosis. Left uncovertebral joint hypertrophy has moderate left foraminal stenosis. Correlate with radicular sympto ms C4-5: No focal disc herniation or significant disc bulge is evident. No spinal canal stenosis. Moder ate left foraminal narrowing from uncovertebral joint is present. C3-4: Mild left paracentral disc bulge is present with mild anterior thecal sac compression. No AP sp inal canal stenosis. No neural foraminal stenosis is present. C2-3: No focal disc herniation or significant disc bulge is evident. No spinal canal stenosis or [place] ral foraminal stenosis is present. IMPRESSION: 1. Uncovertebral joint hypertrophy particularly on the left discussed above. Correlate for testicular symptoms. [facility], , 06/07/2024 10:07 AM
== END | disposition home or self-care (01) ==
LOC: RADMRIMAIN 08:21
PROVIDERS: ATTEND Orthopaedic Surgery
DX: M48.02 Spinal stenosis, cervical region (principal); M47.22 Other spondylosis with radiculopathy, cervical region
CPT/HCPCS: 72141

== ENCOUNTER 2024-07-01 16:09 | Emergency (ER) | payer OTHER ==
[2024-07-01 16:56] VITALS: RESP 20
--- NOTE | 2024-07-01 17:02 | ED ---
Fall HPI - General Source: patient, RN notes reviewed Mode of arrival: ambulatory Limitations: no limitations - History of Present Illness MD Complaint: fall <Rebekah James - Last Filed: 07/01/24 16:54> - General Source: patient, RN notes reviewed, old records reviewed <Zhang Lowery - Last Filed: 07/01/24 20:41> - General Chief Complaint: Fall Stated Complaint: Neck/Back/Leg Pain,L Arm Pain-Fall Time Seen by Provider: 07/01/24 16:50 - History of Present Illness Initial Comments: Quick Note: This is a 43 year old male who presents to the emergency department for a fall. A few days ago he fell down a couple of stairs and injured the left side of his body. Currently has pain over the lower back, neck, left arm, and left leg. Denies hitting his head. (Rebekah James) Patient is a 43-year-old male who presents emergency department after a fall. Patient fell to go down approximately 2-4 steps. He has chronic back pain and reaggravated it. Also complaining of left shoulder pain. Denies hitting head. No loss of conscious. No thinners. Presents for further evaluation at this time. Follows up with Dr. Gay. No red flag symptoms. Originally started in triage and I evaluated patient when he was placed in a room. Imaging is pending results. Primary pain is in lower back, neck, left shoulder, left leg. Did Not Hit his head. He did not experience loss consciousness. Is not on blood thinners. (Zhang Lowery) - Related Data Home Medications Medication Instructions Recorded Confirmed Pregabalin [Lyrica] 150 mg PO BID 05/05/24 05/05/24 Previous Rx's Medication Instructions Recorded Ketorolac [Toradol] 10 mg PO Q6HR PRN #20 tab 05/13/24 traMADol HCl [Ultram] 50 mg PO Q4HR PRN 3 Days #18 tab 05/13/24 Cyclobenzaprine [Flexeril] 5 mg PO TID PRN 7 Days #21 tablet 07/01/24 Lidocaine 5% Patch [Lidoderm 5% 1 patch TOPICAL DAILY PRN 14 Days 07/01/24 Patch] #14 patch Allergies Allergy/AdvReac Type Severity Reaction Status Date / Time Penicillins Allergy Rash/Hives Verified 07/01/24 16:56 Review of Systems ROS Other: All systems not noted in ROS Statement are negative. <Rebekah James - Last Filed: 07/01/24 16:54> ROS Other: All systems not noted in ROS Statement are negative. <Zhang Lowery - Last Filed: 07/01/24 20:41> ROS Statement: Those systems with pertinent positive or pertinent negative responses have been documented in the HPI. Review of Systems: CONST: Denies fever EYES: Denies blurry vision ENT: Denies nasal congestion C/V: Denies Chest pain RESP: Denies shortness of breath GI: Denies abdominal pain : Denies dysuria SKIN: Denies rash. MSK: Endorses back pain NEURO: Denies headache (Zhang Lowery) Past Medical History Past Medical History: Pneumonia Additional Past Medical History / Comment(s): chronic back pain- worse after last tx. dextroscoliosis History of Any Multi-Drug Resistant Organisms: None Reported Past Surgical History: Orthopedic Surgery Additional Past Surgical History / Comment(s): RT KNEE SURG. PAIN CLINIC PROC. Past Anesthesia/Blood Transfusion Reactions: No Reported Reaction Past Psychological History: Anxiety Smoking Status: Current every day smoker Past Alcohol Use History: Rare Past Drug Use History: None Reported - Past Family History Mother Family Medical History: Liver Disease Additional Family Medical History / Comment(s): , liver failure from Hep C Father Family Medical History: Hypertension Additional Family Medical History / Comment(s): drinker <Rebekah James - Last Filed: 07/01/24 16:54> General Exam <Rebekah James - Last Filed: 07/01/24 16:54> <Zhang Lowery - Last Filed: 07/01/24 20:41> - General Exam Comments Initial Comments: Visual Physical Exam Vital signs reviewed General: Well-appearing, nontoxic, no acute distress. Head: Normocephalic, atraumatic Eyes: PERRLA, EOMI ENT: Airway patent Chest: Nonlabored breathing Skin: No visual rash, normal skin tone Neuro: Alert and oriented 3 Musculoskeletal: No gross abnormalities (Rebekah James) General: He is in mild to moderate distress. HEAD: Normal with no signs of head trauma. Negative Samano sign. Negative raccoon eyes. EYES: PERRLA, EOMI, conjunctiva normal, no discharge. ENT: Hearing grossly intact, normal oropharynx. RESPIRATORY: Clear breath sounds bilaterally. No wheezes, rales, or rhonchi. C/V: Regular rate and rhythm. S1 and S2 auscultated, no edema, peripheral pulses 2+ and intact throughout ABD: Abd is soft, nontender, nondistended EXT: Midline cervical, lumbar spine tenderness to palpation without any obvious deformities. Pelvis is stable with mild tenderness over the left hip. SKIN: No rashes or lesions observed on exposed skin. NEURO: Alert and oriented x 4. Cranial nerves II-XII intact. No focal sensory or strength deficits. (Zhang Lowery) Course Vital Signs 07/01/24 07/01/24 16:53 20:24 Temperature 97.8 F 98.0 F Pulse Rate 85 69 Respiratory 20 20 Rate Blood Pressure 164/97 127/89 O2 Sat by Pulse 99 99 Oximetry Medical Decision Making <Rebekah James - Last Filed: 07/01/24 16:54> <Zhang Lowery - Last Filed: 07/01/24 20:41> - Medical Decision Making I performed the QuickNote portion of this chart. Signed eRbekah James PA-C. (Rebekah James) Was pt. sent in by a medical professional or institution ([facility], [employer], urgent care, hospital, or custodial...) When possible be specific @ -No Did you speak to anyone other than the patient for history (EMS, parent, family, police, friend...)? What history was obtained from this source @ -No Did you review nursing and triage notes (agree or disagree)? Why? @ -I reviewed and agree with nursing and triage notes Were old charts reviewed (outside hosp., previous admission, EMS record, old EKG, old radiological studies, urgent care reports/EKG's, custodial records)? Report findings @ -No old charts were reviewed Differential Diagnosis (chest pain, altered mental status, abdominal pain women, abdominal pain men, vaginal bleeding, weakness, fever, dyspnea, syncope, headache, dizziness, GI bleed, back pain, seizure, CVA, palpatations, mental health, musculoskeletal)? @ -Differential Musculoskeletal Muscular strain, contusion, ligament sprain, fracture, arthritis, septic arth ritis, bursitis, cellulitis, muscle spasm, nerve compression, DVT, arterial occlusion, herpes zoster, electrolyte abnormality, tumor.... This is not meant to be in all inclusive list EKG interpreted by me (3pts min.). @ -None done X-rays interpreted by me (1pt min.). @ -Pelvis x-ray, femur x-ray, shoulder x-ray negative for any obvious acute traumatic injury. There is some degeneration present. CT interpreted by me (1pt min.). @ -CT cervical, thoracic, lumbar spine negative for any obvious acute traumatic injury. Degeneration is present. U/S interpreted by me (1pt. min.). @ -None done What testing was considered but not performed or refused? (CT, X-rays, U/S, labs)? Why? @ -None What meds were considered but not given or refused? Why? @ -None Did you discuss the management of the patient with other professionals (professionals i.e. , PA, [employer], lab, RT, psych nurse, social and human services assistant, sales consulting director, teacher, restoration officer, case assistant)? Give summary @ -No Was smoking cessation discussed for >3mins.? @ -No Was critical care preformed (if so, how long)? @ -No Were there social determinants of health that impacted care today? How? (Homelessness, low income, unemployed, alcoholism, drug addiction, transportation, low edu. Level, literacy, decrease access to med. care, [facility], rehab)? @ -No Was there de-escalation of care discussed even if they declined (Discuss DNR or withdrawal of care, Hospice)? DNR status @ -No What co-morbidities impacted this encounter? (DM, HTN, Smoking, COPD, CAD, Cancer, CVA, ARF, Chemo, Hep., AIDS, mental health diagnosis, sleep apnea, morbid obesity)? @ -None Was patient admitted / discharged? Hospital course, mention meds given and route, prescriptions, significant lab abnormalities, going to OR and other pertinent info. @ -Based on the patient's presentation and physical exam, presents emergency department for injury after fall 2 days ago. Does have chronic pain. He will be administered analgesia medications. Imaging already taken while patient was in triage. Patient was in agreement this plan. Vitals are within acceptable limits. No red flag symptoms. No concern for cauda equina syndrome at this time. Imaging negative for any obvious traumatic injury. I discussed results with patient. He will follow-up with his orthopedics, Dr. Gay. I will provide him with analgesia medications for home. Strict return precautions discussed. He was in agreement this plan. I will provide the patient with a prescription for steroid, lidocaine patch. I instructed the patient to follow up with their PCP in the next 1-3 days. I provided contact information for follow up with orthopedics, Dr. Gay his surgeon. I explained that the patient should return to the emergency department if they experience any worsening symptoms. Strict return precautions were discussed with the patient. The patient expressed understanding of these instructions. I answered all questions that the patient had. The patient was discharged home in good condition with their prescriptions and follow up information. Undiagnosed new problem with uncertain prognosis? @ -No Drug Therapy requiring intensive monitoring for toxicity (Heparin, Nitro, Insulin, Cardizem)? @ -No Were any procedures done? @ -No Diagnosis/symptom? @ -Fall, chronic back pain Acute, or Chronic, or Acute on Chronic? @ -Acute on chronic Uncomplicated (without systemic symptoms) or Complicated (systemic symptoms)? @ -Uncomplicated Side effects of treatment? @ -No Exacerbation, Progression, or Severe Exacerbation? @ -No Poses a threat to life or bodily function? How? (Chest pain, [place], [place], pneumonia, PE, COPD, DKA, ARF, appy, cholecystitis, CVA, Diverticulitis, Homicidal, Suicidal, threat to staff... and all critical care pts) @ -Unlikely at this time (Zhang Lowery) Disposition <Rebekah James - Last Filed: 07/01/24 16:54> Is patient prescribed a controlled substance at d/c from ED?: No Time of Disposition: 20:00 <Zhang Lowery - Last Filed: 07/01/24 20:41> Clinical Impression: Fall, Chronic back pain Disposition: HOME SELF-CARE Condition: Good Instructions (If sedation given, give patient instructions): Chronic Back Pain (DC), Back Pain (ED), Fall Prevention (ED) Prescriptions: Cyclobenzaprine [Flexeril] 5 mg PO TID PRN 7 Days #21 tablet PRN Reason: Pain Lidocaine 5% Patch [Lidoderm 5% Patch] 1 patch TOPICAL DAILY PRN 14 Days #14 patch PRN Reason: Pain Referrals: Laura Gonzalez MD [Primary Care Provider] - 1-2 days Rafael Gay DO [Doctor of Osteopathic Medicine] - 1-2 days
--- NOTE | 2024-07-01 17:42 | XR ---
EXAMINATION TYPE: XR shoulder complete LT DATE OF EXAM: 07/01/2024 5:30 PM COMPARISON: None CLINICAL INDICATION: Male, 43 years old with history of Fall; PHH, pain TECHNIQUE: XR shoulder complete LT; examined in AP, internally rotated and scapular Y projections. FINDINGS: No evidence of acute osseous pathology, joint dislocation, or soft tissue swelling. The remaining po rtions of the visualized chest are unremarkable. Mild degeneration changes of the acromion and dista l clavicle. IMPRESSION: 1. No acute osseous pathology. 2. Mild shoulder osteoarthrosis. [facility], , 07/01/2024 5:40 PM
--- NOTE | 2024-07-01 17:43 | XR ---
EXAMINATION TYPE: XR femur LT, XR pelvis AP view DATE OF EXAM: 07/01/2024 5:30 PM COMPARISON: None CLINICAL INDICATION: Male, 43 years old with history of Fall; PHH, pain TECHNIQUE: XR femur LT, XR pelvis AP view femur evaluate in frontal and lateral views. The pelvis is evaluated in frontal view.. FINDINGS: No evidence of acute osseous pathology, joint dislocation, or soft tissue swelling. Modera te osteophyte formations of the superior acetabulum. Mild joint space narrowing. Mild marginal osteop hyte formation noted of the tibial plateau and patella. IMPRESSION: 1. No acute osseous pathology. 2. Mild degeneration changes of the hip and knee. [facility], , 07/01/2024 5:41 PM
--- NOTE | 2024-07-01 18:42 | CT ---
EXAMINATION TYPE: CT CervThorLumbar spine wo con DATE OF EXAM: 07/01/2024 6:06 PM COMPARISON: 05/05/2024. 09/09/2021. CLINICAL INDICATION: Male, 43 years old with history of Fall; Fell x 2 days ago, neck and back pain TECHNIQUE: Axial images of the thoracic and lumbar spine were obtained without contrast. Coronal and sagittal reformats were performed. 3-D reformats of the bones were created on a separate workstation and submitted for review. CT Contrast: Contrast used: mL of , none. Oral contrast used: none. CT DLP: 1371.3 mGycm, Automated exposure control for dose reduction was used. FINDINGS: Nonfusion of the posterior arch of C1. Mild multilevel degeneration changes of the spine with osteoph yte formation which is minimal. The vertebral bodies have preserved heights and alignment. Intervertebral discs and osseous structu res have normal appearance. No extradural defects visualized. Alignment is satisfactory. No evidence for significant spinal canal or neural foraminal stenosis. Nonobstructing bilateral renal calculi measuring up to 5 mm on the left and 4 mm on the right. Trace scattered air cysts throughout the lungs.1 IMPRESSION: 1. No evidence of fracture of the spine. 2. No significant spinal canal or neural foraminal stenosis is identified. 3. Mild degeneration of the spine. [facility], , 07/01/2024 6:39 PM
[2024-07-01] MEDS: KETOROLAC 15 MG/ML 1 ML VIAL IM STA (18:58)
[2024-07-01] MEDS: HYDROmorphone 0.5 MG/0.5 ML SYRINGE IM STA (18:58)
[2024-07-01] MEDS: LIDOCAINE 4% PATCH TOPICAL ONE (19:00)
[2024-07-01] MEDS: ACET/COD 300 MG/30 MG STARTER PACK 6 TAB BTL PO STA (20:21)
[2024-07-01] MEDS: methylPREDNISolone SOD SUCCI 125 MG/2 ML VIAL IM ONE (20:21)
[2024-07-01 20:27] VITALS: BP 127/89; PULSE 69; TEMP 98
== END 2024-07-01 20:24 | disposition home or self-care (01) ==
LOC: EC 16:09
DX: G89.29 Other chronic pain (principal); F17.200 Nicotine dependence, unspecified, uncomplicated; Z88.0 Allergy status to penicillin; W10.9XXA Fall (on) (from) unspecified stairs and steps, initial encounter
CPT/HCPCS: 72170; 73030; 73552; 72128; 72125; 72131; 99284; 96372; J1885; J1171; J2919

== ENCOUNTER 2024-07-21 18:51 | Emergency (ER) | payer OTHER ==
[2024-07-21 19:09] VITALS: RESP 17
--- NOTE | 2024-07-21 19:28 | ED ---
General Adult HPI - General Chief complaint: Extremity Injury, Lower Stated complaint: left side pain,right foot injury Time Seen by Provider: 07/21/24 19:05 Source: patient, RN notes reviewed, old records reviewed Mode of arrival: ambulatory Limitations: no limitations - History of Present Illness Initial comments: This is a 43-year-old male who presents to the emergency department stating that last week he fell down some steps and hurt his right foot. Patient states it hurts in the first metatarsal. Patient denies any ankle or knee pain. Patient denies any hip pain. Patient states he is got chronic left-sided body pain but that is no different than normal and he is not here for that. - Related Data Home Medications Medication Instructions Recorded Confirmed Pregabalin [Lyrica] 150 mg PO BID 05/05/24 05/05/24 Previous Rx's Medication Instructions Recorded Ketorolac [Toradol] 10 mg PO Q6HR PRN #20 tab 05/13/24 traMADol HCl [Ultram] 50 mg PO Q4HR PRN 3 Days #18 tab 05/13/24 Cyclobenzaprine [Flexeril] 5 mg PO TID PRN 7 Days #21 tablet 07/01/24 Lidocaine 5% Patch [Lidoderm 5% 1 patch TOPICAL DAILY PRN 14 Days 07/01/24 Patch] #14 patch Allergies Allergy/AdvReac Type Severity Reaction Status Date / Time Penicillins Allergy Rash/Hives Verified 07/21/24 19:09 Review of Systems ROS Statement: Those systems with pertinent positive or pertinent negative responses have been documented in the HPI. ROS Other: All systems not noted in ROS Statement are negative. Past Medical History Past Medical History: Pneumonia Additional Past Medical History / Comment(s): chronic back pain- worse after last tx. dextroscoliosis History of Any Multi-Drug Resistant Organisms: None Reported Past Surgical History: Orthopedic Surgery Additional Past Surgical History / Comment(s): RT KNEE SURG. PAIN CLINIC PROC. Past Anesthesia/Blood Transfusion Reactions: No Reported Reaction Past Psychological History: Anxiety Smoking Status: Current every day smoker Past Alcohol Use History: Rare Past Drug Use History: None Reported - Past Family History Mother Family Medical History: Liver Disease Additional Family Medical History / Comment(s): , liver failure from Hep C Father Family Medical History: Hypertension Additional Family Medical History / Comment(s): drinker General Exam - General Exam Comments Initial Comments: GENERAL Patient is well-developed and well-nourished. Patient is in no acute distress. EYES Patient's pupils are equal and round. Extraocular motion is intact SKIN Unremarkable NEURO The patient is alert and oriented A&Ox3 PYSCH Patient has normal interpersonal interactions. MUSCULOSKELETAL Patient stated his tenderness is in the first metatarsal however when I palpated the area there was no tenderness there was no swelling Limitations: no limitations Course Vital Signs 07/21/24 19:05 Temperature 98.4 F Pulse Rate 91 Respiratory 17 Rate Blood Pressure 142/99 O2 Sat by Pulse 98 Oximetry Medical Decision Making - Medical Decision Making Was pt. sent in by a medical professional or institution (, [facility], [employer]ORAGE MANAGEMENT CONSULTANT, urgent care, hospital, or correction...) When possible be specific @ -No Did you speak to anyone other than the patient for history (EMS, parent, family, police, friend...)? What history was obtained from this source @ -No Did you review nursing and triage notes (agree or disagree)? Why? @ -I reviewed and agree with nursing and triage notes Were old charts reviewed (outside hosp., previous admission, EMS record, old EKG, old radiological studies, urgent care reports/EKG's, correction records)? Report findings @ -No old charts were reviewed Differential Diagnosis? @ -Differential Musculoskeletal Muscular strain, contusion, ligament sprain, fracture, arthritis, septic arthritis, bursitis, cellulitis, muscle spasm, nerve compression, DVT, arterial occlusion, herpes zoster, electrolyte abnormality, tumor.... This is not meant to be in all inclusive list EKG interpreted by me (3pts min.). @ -As above X-rays interpreted by me (1pt min.). @ -X-ray of the foot shows no acute normality CT interpreted by me (1pt min.). @ -None done U/S interpreted by me (1pt. min.). @ -None done What testing was considered but not performed or refused? (CT, X-rays, U/S, labs)? Why? @ -None What meds were considered but not given or refused? Why? @ -None Did you discuss the management of the patient with other professionals (professionals i.e. , AY[facility]E, STORAGE MANAGEMENT CONSULTANT, lab, RT, psych nurse, social services director, homebound teacher, teacher, surveillance officer, case hardener)? Give summary @ -No Was smoking cessation discussed for >3mins.? @ -No Was critical care preformed (if so, how long)? @ -No Were there social determinants of health that impacted care today? How? (Homelessness, low income, unemployed, alcoholism, drug addiction, transportation, low edu. Level, literacy, decrease access to med. care, [facility], rehab)? @ -No Was there de-escalation of care discussed even if they declined (Discuss DNR or withdrawal of care, Hospice)? DNR status @ -No What co-morbidities impacted this encounter? (DM, HTN, Smoking, COPD, CAD, Cancer, CVA, ARF, Chemo, Hep., AIDS, mental health diagnosis, sleep apnea, morbid obesity)? @ -None Was patient admitted / discharged? Hospital course, mention meds given and route, prescriptions, significant lab abnormalities, going to OR and other pertinent info. @ -Patient was given a shot of Toradol. X-ray was negative patient was given instructions to follow-up with orthopedics if it continues to hurt and Undiagnosed new problem with uncertain prognosis? @ -No Drug Therapy requiring intensive monitoring for toxicity (Heparin, Nitro, Insulin, Cardizem)? @ -No Were any procedures done? @ -No Diagnosis/symptom? @ -Foot pain Acute, or Chronic, or Acute on Chronic? @ -Acute Uncomplicated (without systemic symptoms) or Complicated (systemic symptoms)? @ -Uncomplicated Side effects of treatment? @ -No Exacerbation, Progression, or Severe Exacerbation? @ -No Poses a threat to life or bodily function? How? (Chest pain, [place], [place], pneumonia, PE, COPD, DKA, ARF, appy, cholecystitis, CVA, Diverticulitis, Homicidal, Suicidal, threat to staff... and all critical care pts) @ -No Disposition Clinical Impression: Foot pain Disposition: HOME SELF-CARE Instructions (If sedation given, give patient instructions): Foot Sprain (ED) Is patient prescribed a controlled substance at d/c from ED?: No Referrals: Laura Gonzalez MD [Primary Care Provider] - 1-2 days Manuel Tomas MD [STAFF PHYSICIAN] - 1-2 days Time of Disposition: 20:05
[2024-07-21] MEDS: KETOROLAC 15 MG/ML 1 ML VIAL IM STA (19:42)
--- NOTE | 2024-07-21 20:03 | XR ---
EXAMINATION TYPE: XR foot complete RT DATE OF EXAM: 07/21/2024 7:38 PM COMPARISON: None. CLINICAL INDICATION: Male, 43 years old with history of Trauma, pain, fall one week prior TECHNIQUE: 3 view(s) obtained. FINDINGS: 1 technically senting calcaneal heel spurs are present. Soft tissues are normal. No displaced fractur es are identified. There appears to be some overlap at the proximal interphalangeal joint spaces of the proximal middle phalanges on AP projection. Dislocation however is not identified on the lateral projection. Correlat e for pain at these levels. Remaining joint spaces appear preserved. IMPRESSION: 1. Correlate for pain at the proximal interphalangeal joint spaces of the second and third digits. S ubluxation or dislocation is not excluded. 2. Displaced fractures are not identified. [facility], , 07/21/2024 8:01 PM
[2024-07-21 20:11] VITALS: BP 129/80; PULSE 81; TEMP 97.8
== END 2024-07-21 20:11 | disposition home or self-care (01) ==
LOC: EC 18:51
DX: M79.671 Pain in right foot (principal); F17.200 Nicotine dependence, unspecified, uncomplicated; Z88.0 Allergy status to penicillin; W10.9XXA Fall (on) (from) unspecified stairs and steps, initial encounter
CPT/HCPCS: 73630; 99283; 96372; J1885

== ENCOUNTER 2024-08-13 03:58 | Emergency (ER) | payer OTHER ==
[2024-08-13 04:01] VITALS: BP 115/81; PULSE 66; RESP 16; TEMP 97.8
--- NOTE | 2024-08-13 04:28 | ED ---
URI HPI - General Chief Complaint: Headache Stated Complaint: Headache, eye pain Time Seen by Provider: 08/13/24 04:12 Source: patient, RN notes reviewed, old records reviewed Mode of arrival: ambulatory Limitations: no limitations - History of Present Illness Initial Comments: This is a 43-year-old male to the ER for evaluation patient comes in for cough and congestion, generalized bodyaches sinus symptoms pain runny nose MD Complaint: cough, sore throat -: days(s) Severity: mild Severity scale (1-10): 3 Quality: sharp Consistency: constant Improves With: nothing Worsens With: nothing Associated Symptoms: denies other symptoms Treatments Prior to Arrival: none - Related Data Home Medications Medication Instructions Recorded Confirmed Pregabalin [Lyrica] 150 mg PO BID 05/05/24 05/05/24 Previous Rx's Medication Instructions Recorded Ketorolac [Toradol] 10 mg PO Q6HR PRN #20 tab 05/13/24 traMADol HCl [Ultram] 50 mg PO Q4HR PRN 3 Days #18 tab 05/13/24 Cyclobenzaprine [Flexeril] 5 mg PO TID PRN 7 Days #21 tablet 07/01/24 Lidocaine 5% Patch [Lidoderm 5% 1 patch TOPICAL DAILY PRN 14 Days 07/01/24 Patch] #14 patch Azithromycin [Zithromax] 500 mg PO DAILY #5 tab 08/13/24 Loratadine-Pseudoeph 10-240 mg 1 tab PO DAILY #30 tab 08/13/24 [Claritin-D 24 Hour] Allergies Allergy/AdvReac Type Severity Reaction Status Date / Time Penicillins Allergy Rash/Hives Verified 08/20/24 01:50 Review of Systems ROS Statement: Those systems with pertinent positive or pertinent negative responses have been documented in the HPI. ROS Other: All systems not noted in ROS Statement are negative. Past Medical History Past Medical History: Pneumonia Additional Past Medical History / Comment(s): chronic back pain- worse after last tx. dextroscoliosis History of Any Multi-Drug Resistant Organisms: None Reported Past Surgical History: Orthopedic Surgery Additional Past Surgical History / Comment(s): RT KNEE SURG. PAIN CLINIC PROC. Past Anesthesia/Blood Transfusion Reactions: No Reported Reaction Past Psychological History: Anxiety Smoking Status: Current every day smoker Past Alcohol Use History: Rare Past Drug Use History: None Reported - Past Family History Mother Family Medical History: Liver Disease Additional Family Medical History / Comment(s): , liver failure from Hep C Father Family Medical History: Hypertension Additional Family Medical History / Comment(s): drinker General Exam Limitations: no limitations General appearance: alert, in no apparent distress Head exam: Present: atraumatic, normocephalic, normal inspection Eye exam: Present: normal appearance, PERRL, EOMI. Absent: scleral icterus, conjunctival injection, periorbital swelling ENT exam: Present: normal exam, mucous membranes moist Neck exam: Present: normal inspection. Absent: tenderness, meningismus, lymphadenopathy Respiratory exam: Present: normal lung sounds bilaterally. Absent: respiratory distress, wheezes, rales, rhonchi, stridor Cardiovascular Exam: Present: regular rate, normal rhythm, normal heart sounds. Absent: systolic murmur, diastolic murmur, rubs, gallop, clicks GI/Abdominal exam: Present: soft, normal bowel sounds. Absent: distended, tenderness, guarding, rebound, rigid Extremities exam: Present: normal inspection, full ROM, normal capillary refill. Absent: tenderness, pedal edema, joint swelling, calf tenderness Back exam: Present: normal inspection Neurological exam: Present: alert, oriented X3, CN II-XII intact Psychiatric exam: Present: normal affect, normal mood Skin exam: Present: warm, dry, intact, normal color. Absent: rash Course Vital Signs 08/13/24 03:59 Temperature 97.8 F Pulse Rate 66 Respiratory 16 Rate Blood Pressure 115/81 O2 Sat by Pulse 100 Oximetry - Reevaluation(s) Reevaluation #1: Medical records reviewed Reevaluation #2: Patient's headache is resolved Reevaluation #3: Patient informed of results questions answered Reevaluation #4: Was pt. sent in by a medical professional or institution (, PA, COFFEE ATTENDANT, urgent care, hospital, or intermediate...) When possible be specific @ -no Did you speak to anyone other than the patient for history (EMS, parent, family, police, friend...)? What history was obtained from this source @ -no Did you review nursing and triage notes (agree or disagree)? Why? @ -agree Are old charts reviewed (outside hosp., previous admission, EMS record, old EKG, old radiological studies, urgent care reports/EKG's, intermediate records)? Report findings @ -yes Differential Diagnosis (chest pain, altered mental status, abdominal pain women, abdominal pain men, vaginal bleeding, weakness, fever, dyspnea, syncope, headache, dizziness, GI bleed, back pain, seizure, CVA, palpatations, mental health, musculoskeletal)? @ -prior EKG interpreted by me (3pts min.). @ -no X-rays interpreted by me (1pt min.). @ -no CT interpreted by me (1pt min.). @ -no U/S interpreted by me (1pt. min.). @ -no What testing was considered but not performed or refused? (CT, X-rays, U/S, labs)? Why? @ -none What meds were considered but not given or refused? Why? @ -none Did you discuss the management of the patient with other professionals (professionals i.e. , PA, COFFEE ATTENDANT, lab, RT, psych nurse, social media sr strategy manager, seo expert, teacher, major gifts officer, bottle caser)? Give summary @ -no Was smoking cessation discussed for >3mins.? @ -no Was critical care preformed (if so, how long)? @ -no Were there social determinants of health that impacted care today? How? (Homelessness, low income, unemployed, alcoholism, drug addiction, transportation, low edu. Level, literacy, decrease access to med. care, fpc, rehab)? @ -none Was there de-escalation of care discussed even if they declined (Discuss DNR or withdrawal of care, Hospice)? DNR status @ -no What co-morbidities impacted this encounter? (DM, HTN, Smoking, COPD, CAD, Cancer, CVA, ARF, Chemo, Hep., AIDS, mental health diagnosis, sleep apnea, morbid obesity)? @ -none Was patient admitted / discharged? Hospital course, mention meds given and route, prescriptions, significant lab abnormalities, going to OR and other pertinent info. @ - 43 male to the ER for evaluation patient was to the ER for evaluation of URI no acute findings here in the ER patient can be discharged home Discharge Undiagnosed new problem with uncertain prognosis? @ -no Drug Therapy requiring intensive monitoring for toxicity (Heparin, Nitro, Insu kwaku, Cardizem)? @ -no Were any procedures done? @ -no Diagnosis/symptom? @ -URI Acute, or Chronic, or Acute on Chronic? @ -Acute Uncomplicated (without systemic symptoms) or Complicated (systemic symptoms)? @ -Complicated Side effects of treatment? @ -no Exacerbation, Progression, or Severe Exacerbation? @ -exacerbation Poses a threat to life or bodily function? How? (Chest pain, USA, [place], pneumonia, PE, COPD, DKA, ARF, appy, cholecystitis, CVA, Diverticulitis, Homicidal, Suicidal, threat to staff... and all critical care pts) @ -no Reevaluation #5: Differential Headache: Migraine, tension, cluster, carbon monoxide, central venous thrombosis, pension karma temporal arteritis, acute closure glaucoma, intercranial hemorrhage, mastoiditis, sinusitis, head injury, this is not meant to be an all-inclusive list. Medical Decision Making - Medical Decision Making 43 male to the ER for evaluation patient was to the ER for evaluation of URI no acute findings here in the ER patient can be discharged home Disposition Clinical Impression: Sinusitis, Bacterial tracheitis, Upper respiratory infection Disposition: HOME SELF-CARE Condition: Good Instructions (If sedation given, give patient instructions): Sinusitis (ED), Upper Respiratory Infection (ED) Prescriptions: Loratadine-Pseudoeph 10-240 mg [Claritin-D 24 Hour] 1 tab PO DAILY #30 tab Azithromycin [Zithromax] 500 mg PO DAILY #5 tab Is patient prescribed a controlled substance at d/c from ED?: No Referrals: Laura Gonzalez MD [Primary Care Provider] - 1-2 days Time of Disposition: 04:30
[2024-08-13] MEDS: ACETAMINOPHEN TAB 500 MG TAB PO STA (04:35)
[2024-08-13] MEDS: IBUPROFEN 800 MG TAB PO STA (04:36)
[2024-08-13] MEDS: AZITHROMYCIN 500 MG TAB PO STA (04:36)
[2024-08-13] MEDS: LORATADINE-PSEUDOEPH 5-120 MG 1 EACH TAB.ER.12H PO STA (04:42)
== END 2024-08-13 04:43 | disposition home or self-care (01) ==
LOC: EC 03:58
DX: J04.10 Acute tracheitis without obstruction (principal); J32.9 Chronic sinusitis, unspecified; F17.200 Nicotine dependence, unspecified, uncomplicated; Z88.0 Allergy status to penicillin
CPT/HCPCS: 99283

== ENCOUNTER 2024-08-20 01:40 | Emergency (ER) | payer OTHER ==
[2024-08-20 01:54] VITALS: RESP 16
--- NOTE | 2024-08-20 02:15 | ED ---
Back Pain HPI - General Chief Complaint: Back Pain/Injury Stated Complaint: Pain in neck, left arm, legs Time Seen by Provider: 08/20/24 02:14 Source: patient, RN notes reviewed, old records reviewed Mode of arrival: ambulatory Limitations: no limitations - History of Present Illness Initial Comments: 43-year-old male presented the ER for evaluation of back pain. Patient states he is attempting to follow-up with Dr. Gay for evaluation of this but has been unable to make an appointment given issues with health insurance. Patient states he has chronic neck and back pain and occasionally gets flares. 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 He states since then he has been having a flareup of pain to his neck and lumbar back. He also was reporting pain to his right knee which he states he has had surgery on approximately 5 years ago. He has taken [id number] ibuprofen without relief of symptoms. He states neck and back pain are similar to prior flares. He denies any saddle paresthesias, bowel or bladder incontinence/retention, fevers or history of IV drug abuse. Patient states he is able to ambulate without difficulty. No other complaints - Related Data Home Medications Medication Instructions Recorded Confirmed Pregabalin [Lyrica] 150 mg PO BID 05/05/24 05/05/24 Previous Rx's Medication Instructions Recorded Ketorolac [Toradol] 10 mg PO Q6HR PRN #20 tab 05/13/24 traMADol HCl [Ultram] 50 mg PO Q4HR PRN 3 Days #18 tab 05/13/24 Cyclobenzaprine [Flexeril] 5 mg PO TID PRN 7 Days #21 tablet 07/01/24 Lidocaine 5% Patch [Lidoderm 5% 1 patch TOPICAL DAILY PRN 14 Days 07/01/24 Patch] #14 patch Azithromycin [Zithromax] 500 mg PO DAILY #5 tab 08/13/24 Loratadine-Pseudoeph 10-240 mg 1 tab PO DAILY #30 tab 08/13/24 [Claritin-D 24 Hour] Allergies Allergy/AdvReac Type Severity Reaction Status Date / Time Penicillins Allergy Rash/Hives Verified 08/20/24 01:50 Review of Systems ROS Statement: Those systems with pertinent positive or pertinent negative responses have been documented in the HPI. ROS Other: All systems not noted in ROS Statement are negative. Past Medical History Past Medical History: Pneumonia Additional Past Medical History / Comment(s): chronic back pain- worse after last tx. dextroscoliosis History of Any Multi-Drug Resistant Organisms: None Reported Past Surgical History: Orthopedic Surgery Additional Past Surgical History / Comment(s): RT KNEE SURG. PAIN CLINIC PROC. Past Anesthesia/Blood Transfusion Reactions: No Reported Reaction Smoking Status: Former smoker Past Alcohol Use History: Rare Past Drug Use History: None Reported - Past Family History Mother Family Medical History: Liver Disease Additional Family Medical History / Comment(s): , liver failure from Hep C Father Family Medical History: Hypertension Additional Family Medical History / Comment(s): drinker General Exam Limitations: no limitations General appearance: alert, in no apparent distress Neck exam: Present: normal inspection. Absent: tenderness, meningismus, lymphadenopathy Respiratory exam: Present: normal lung sounds bilaterally. Absent: respiratory distress, wheezes, rales, rhonchi, stridor Cardiovascular Exam: Present: regular rate, normal rhythm, normal heart sounds. Absent: systolic murmur, diastolic murmur, rubs, gallop, clicks Extremities exam: Present: normal inspection, full ROM, normal capillary refill. Absent: tenderness, pedal edema, joint swelling, calf tenderness Back exam: Present: full ROM, tenderness (Lumbar spine) Neurological exam: Present: alert, oriented X3, CN II-XII intact Skin exam: Present: warm, dry, intact, normal color. Absent: rash Course Vital Signs 08/20/24 08/20/24 01:51 03:32 Temperature 98.3 F 98.4 F Pulse Rate 88 59 L Respiratory 16 16 Rate Blood Pressure 122/82 127/76 O2 Sat by Pulse 100 99 Oximetry Medical Decision Making - Medical Decision Making Was pt. sent in by a medical professional or institution (, PA, RUBBER GOODS INSPECTOR TESTER, urgent care, hospital, or shelter...) When possible be specific @ -No Did you speak to anyone other than the patient for history (EMS, parent, family, police, friend...)? What history was obtained from this source @ -No Did you review nursing and triage notes (agree or disagree)? Why? @ -I reviewed and agree with nursing and triage notes Were old charts reviewed (outside hosp., previous admission, EMS record, old EKG, old radiological studies, urgent care reports/EKG's, shelter records)? Report findings @ -Prior medical records Differential Diagnosis (chest pain, altered mental status, abdominal pain women, abdominal pain men, vaginal bleeding, weakness, fever, dyspnea, syncope, headache, dizziness, GI bleed, back pain, seizure, CVA, palpatations, mental health, musculoskeletal)? @ -Differential Back Pain: Strain, zoster, cauda equina syndrome, epidural abscess, vertebral osteomyelitis, discitis, fracture, subluxation, disc herniation, DJD, spinal stenosis, dissection, AAA, pancreatitis, peptic ulcer disease, pyelonephritis, kidney stone, this is not meant to be an all-inclusive list. EKG interpreted by me (3pts min.). @ -None X-rays interpreted by me (1pt min.). @ -Right knee x-ray interpreted by me negative for acute fractures or dislocations per CT interpreted by me (1pt min.). @ -[None done U/S interpreted by me (1pt. min.). @ -None done What testing was considered but not performed or refused? (CT, X-rays, U/S, labs)? Why? @ -None What meds were considered but not given or refused? Why? @ -None Did you discuss the management of the patient with other professionals (professionals i.e. , PA, RUBBER GOODS INSPECTOR TESTER, lab, RT, psych nurse, social services, maintenance helper, teacher, commercial credit officer, case picker)? Give summary @ -No Was smoking cessation discussed for >3mins.? @ -No Was critical care preformed (if so, how long)? @ -No Were there social determinants of health that impacted care today? How? (Homelessness, low income, unemployed, alcoholism, drug addiction, transportation, low edu. Level, literacy, decrease access to med. care, senior care, rehab)? @ -No Was there de-escalation of care discussed even if they declined (Discuss DNR or withdrawal of care, Hospice)? DNR status @ -No What co-morbidities impacted this encounter? (DM, HTN, Smoking, COPD, CAD, Cancer, CVA, ARF, Chemo, Hep., AIDS, mental health diagnosis, sleep apnea, morbid obesity)? @ -Chronic back pain Was patient admitted / discharged? Hospital course, mention meds given and route, prescriptions, significant lab abnormalities, going to OR and other pertinent info. @ -Discharge. 43-year-old male presented the ER for evaluation of chronic back pain. Patient is well-known to this emergency department. Vital stable. Patient is neurovascularly intact and no signs of acute distress upon my examination. No red flag back pain symptoms indicative of cauda equina syndrome. As patient reporting new pain to right knee x-rays were obtained and negative for acute findings. Imaging deferred of cervical or lumbar spine as pain is chronic with no new reported injuries. Patient received symptomatic control in the ER, with improvement and is eager for discharge upon reevaluation. I advised him to follow-up closely with orthopedics and PCP for further evaluation. Return parameters discussed. Patient discharged stable condition. Patient verbally expressed understanding agreement care plan. Case discussed with ED attending, Dr. Cheney. Undiagnosed new problem with uncertain prognosis? @ -No Drug Therapy requiring intensive monitoring for toxicity (Heparin, Nitro, Insuli n, Cardizem)? @ -No Were any procedures done? @ -No Diagnosis/symptom? @ -Back pain/knee pain Acute, or Chronic, or Acute on Chronic? @ -Chronic/acute Uncomplicated (without systemic symptoms) or Complicated (systemic symptoms)? @ -Uncomplicated Side effects of treatment? @ -No Exacerbation, Progression, or Severe Exacerbation? @ -No Poses a threat to life or bodily function? How? (Chest pain, USA, [place], pneumonia, PE, COPD, DKA, ARF, appy, cholecystitis, CVA, Diverticulitis, Homicidal, Suicidal, threat to staff... and all critical care pts) @ -Unlikely - Radiology Data Radiology results: report reviewed, image reviewed Disposition Clinical Impression: Chronic back pain, Knee pain Disposition: HOME SELF-CARE Condition: Stable Instructions (If sedation given, give patient instructions): Acute Low Back Pain (ED) Additional Instructions: Follow-up with PCP and Dr. Gay. Return to the ER for any new or worsening symptoms. Is patient prescribed a controlled substance at d/c from ED?: No Referrals: Laura Gonzalez MD [Primary Care Provider] - 1-2 days Rafael Gay DO [Doctor of Osteopathic Medicine] - 1-2 days Time of Disposition: 03:19
[2024-08-20] MEDS: IBUPROFEN 800 MG TAB PO STA (02:55)
[2024-08-20] MEDS: HYDROmorphone 1 MG/ML 1 ML SYRINGE IM STA (02:59)
[2024-08-20] MEDS: ORPHENADRINE 30 MG/ML 2 ML VIAL IM STA (03:00)
[2024-08-20] MEDS: LIDOCAINE 4% PATCH TOPICAL ONE (03:02)
[2024-08-20 04:29] VITALS: BP 127/76; PULSE 59; TEMP 98.4
--- NOTE | 2024-08-20 05:19 | XR ---
EXAM: XR Right Knee, 3 Views CLINICAL HISTORY: ITS.REASON XR Reason: pain TECHNIQUE: Three views of the right knee. COMPARISON: 12/11/2023 FINDINGS: Bones/joints: Prior wire fixation of the patella. Benign-appearing sclerosis in the proximal tibial metaphysis, unchanged. No acute fracture. No dislocation. Soft tissues: Unremarkable. IMPRESSION: No acute findings in the right knee.
== END 2024-08-20 03:32 | disposition home or self-care (01) ==
LOC: EC 01:40
DX: G89.29 Other chronic pain (principal); M54.50 Low back pain, unspecified; M25.561 Pain in right knee; Z88.0 Allergy status to penicillin; Z87.891 Personal history of nicotine dependence
CPT/HCPCS: 73562; 99283; 96372 ×2; J2360; J1171

== ENCOUNTER 2024-08-21 04:03 | Emergency (ER) | payer OTHER ==
[2024-08-21 04:15] VITALS: RESP 18
--- NOTE | 2024-08-21 04:29 | ED ---
General Adult HPI - General Chief complaint: Neck Pain/Injury Stated complaint: Lft sided pain Time Seen by Provider: 08/21/24 04:18 Source: patient, RN notes reviewed, old records reviewed Mode of arrival: ambulatory - History of Present Illness Initial comments: 43-year-old male with chronic low back pain presenting with chief complaint of low back pain. Patient has dealt with this issue for some time and has followed with orthopedics. He said workup including MRI. 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 - Related Data Home Medications Medication Instructions Recorded Confirmed Pregabalin [Lyrica] 150 mg PO BID 05/05/24 05/05/24 Previous Rx's Medication Instructions Recorded Ketorolac [Toradol] 10 mg PO Q6HR PRN #20 tab 05/13/24 traMADol HCl [Ultram] 50 mg PO Q4HR PRN 3 Days #18 tab 05/13/24 Cyclobenzaprine [Flexeril] 5 mg PO TID PRN 7 Days #21 tablet 07/01/24 Lidocaine 5% Patch [Lidoderm 5% 1 patch TOPICAL DAILY PRN 14 Days 07/01/24 Patch] #14 patch Azithromycin [Zithromax] 500 mg PO DAILY #5 tab 08/13/24 Loratadine-Pseudoeph 10-240 mg 1 tab PO DAILY #30 tab 08/13/24 [Claritin-D 24 Hour] Allergies Allergy/AdvReac Type Severity Reaction Status Date / Time Penicillins Allergy Rash/Hives Verified 08/21/24 04:15 Review of Systems ROS Statement: Those systems with pertinent positive or pertinent negative responses have been documented in the HPI. ROS Other: All systems not noted in ROS Statement are negative. Past Medical History Past Medical History: Pneumonia Additional Past Medical History / Comment(s): chronic back pain- worse after last tx. dextroscoliosis History of Any Multi-Drug Resistant Organisms: None Reported Past Surgical History: Orthopedic Surgery Additional Past Surgical History / Comment(s): RT KNEE SURG. PAIN CLINIC PROC. Past Anesthesia/Blood Transfusion Reactions: No Reported Reaction Past Psychological History: Anxiety Smoking Status: Former smoker Past Alcohol Use History: Rare Past Drug Use History: None Reported - Past Family History Mother Family Medical History: Liver Disease Additional Family Medical History / Comment(s): , liver failure from Hep C Father Family Medical History: Hypertension Additional Family Medical History / Comment(s): drinker General Exam General appearance: alert, in no apparent distress Head exam: Present: atraumatic, normocephalic Eye exam: Present: normal appearance, PERRL ENT exam: Present: normal exam Neck exam: Present: normal inspection. Absent: tenderness, meningismus Respiratory exam: Present: normal lung sounds bilaterally. Absent: respiratory distress, wheezes Cardiovascular Exam: Present: regular rate, normal rhythm GI/Abdominal exam: Absent: distended Extremities exam: Present: normal inspection Back exam: Present: paraspinal tenderness (Left) Psychiatric exam: Present: normal affect, normal mood Skin exam: Present: warm, dry, intact. Absent: cyanosis, diaphoretic Course Vital Signs 08/21/24 04:10 Temperature 97.7 F Pulse Rate 76 Respiratory 18 Rate Blood Pressure 135/79 O2 Sat by Pulse 100 Oximetry Medical Decision Making - Medical Decision Making Was pt. sent in by a medical professional or institution (, AYDEE, BEAN WEIGHER, urgent care, hospital, or fdc...) When possible be specific @ -No Did you speak to anyone other than the patient for history (EMS, parent, family, police, friend...)? What history was obtained from this source @ -No Did you review nursing and triage notes (agree or disagree)? Why? @ -I reviewed and agree with nursing and triage notes Were old charts reviewed (outside hosp., previous admission, EMS record, old EKG, old radiological studies, urgent care reports/EKG's, fdc records)? Report findings @ -No old charts were reviewed MDM musculoskeletal EKG interpreted by me (3pts min.). @ -As above X-rays interpreted by me (1pt min.). @ -None done CT interpreted by me (1pt min.). @ -None done U/S interpreted by me (1pt. min.). @ -None done What testing was considered but not performed or refused? (CT, X-rays, U/S, labs)? Why? @ -None What meds were considered but not given or refused? Why? @ -None Did you discuss the management of the patient with other professionals (professionals i.e. , AYDEE, BEAN WEIGHER, lab, RT, psych nurse, outreach and education social worker, risk and insurance consultant, teacher, medical officer psychiatry, top case assembler)? Give summary @ -No Was smoking cessation discussed for >3mins.? @ -No Was critical care preformed (if so, how long)? @ -No Were there social determinants of health that impacted care today? How? (Homelessness, low income, unemployed, alcoholism, drug addiction, transportation, low edu. Level, literacy, decrease access to med. care, group home, rehab)? @ -No Was there de-escalation of care discussed even if they declined (Discuss DNR or withdrawal of care, Hospice)? DNR status @ -No What co-morbidities impacted this encounter? (DM, HTN, Smoking, COPD, CAD, Cancer, CVA, ARF, Chemo, Hep., AIDS, mental health diagnosis, sleep apnea, morbid obesity)? @ -Chronic pain Was patient admitted / discharged? Hospital course, mention meds given and route, prescriptions, significant lab abnormalities, going to OR and other pertinent info. @43-year-old male with chronic pain, no specific injury but patient did do some increased work over the weekend and believes he exacerbated his symptoms. He has been prescribed Motrin and Norflex from previous ER visit. He is given a shot of Toradol and instructed to follow-up with orthopedics given the chronici ty of the symptoms. Undiagnosed new problem with uncertain prognosis? @ -No Drug Therapy requiring intensive monitoring for toxicity (Heparin, Nitro, Insulin, Cardizem)? @ -No Were any procedures done? @ -No Diagnosis/symptom? @Chronic back pain Acute, or Chronic, or Acute on Chronic? @ -Chronic Uncomplicated (without systemic symptoms) or Complicated (systemic symptoms)? @ -Default Side effects of treatment? @ -No Exacerbation, Progression, or Severe Exacerbation? @ -No Poses a threat to life or bodily function? How? (Chest pain, USA, [place], pneumonia, PE, COPD, DKA, ARF, appy, cholecystitis, CVA, Diverticulitis, Homicidal, Suicidal, threat to staff... and all critical care pts) @ -No Disposition Clinical Impression: Chronic back pain Disposition: HOME SELF-CARE Condition: Fair Instructions (If sedation given, give patient instructions): Low Back Strain (ED), Back Pain (ED) Is patient prescribed a controlled substance at d/c from ED?: No Referrals: Laura Gonzalez MD [Primary Care Provider] - 1-2 days Jet Oshea DO [Doctor of Osteopathic Medicine] - 1-2 days Time of Disposition: 04:28
[2024-08-21] MEDS: KETOROLAC 15 MG/ML 1 ML VIAL IM STA (04:31)
[2024-08-21 04:45] VITALS: BP 134/79; PULSE 79; TEMP 97.8
== END 2024-08-21 04:44 | disposition home or self-care (01) ==
LOC: EC 04:03
DX: M54.50 Low back pain, unspecified (principal); G89.29 Other chronic pain; Z87.891 Personal history of nicotine dependence; Z88.0 Allergy status to penicillin
CPT/HCPCS: 99283; 96372; J1885

== ENCOUNTER 2024-08-28 00:53 | Emergency (ER) | payer OTHER ==
[2024-08-28 01:15] VITALS: RESP 18; TEMP 98.3
[2024-08-28] MEDS: KETOROLAC 15 MG/ML 1 ML VIAL IVP STA (01:50)
[2024-08-28] MEDS: DEXAMETHASONE SOD PHOSPHATE 10 MG/ML 1 ML VIAL IVP STA (01:50)
[2024-08-28] MEDS: MORPHINE SULFATE 4 MG/ML SYRINGE IVP STA (01:51)
[2024-08-28] MEDS: ONDANSETRON 4 MG/2 ML VIAL IVP STA (01:51)
[2024-08-28] MEDS: SODIUM CHLORIDE 0.9% 500 ML 500 ML IV ONE (01:51)
[2024-08-28] MEDS: ORPHENADRINE 30 MG/ML 2 ML VIAL IVP STA (01:51)
[2024-08-28] MEDS: ONDANSETRON ODT 4 MG TAB PO STA (01:54)
[2024-08-28] MEDS: ORPHENADRINE 30 MG/ML 2 ML VIAL IM STA (01:54)
[2024-08-28] MEDS: KETOROLAC 15 MG/ML 1 ML VIAL IM STA (01:55)
[2024-08-28] MEDS: DEXAMETHASONE SOD PHOSPHATE 10 MG/ML 1 ML VIAL IM STA (01:55)
[2024-08-28] MEDS: MORPHINE SULFATE 4 MG/ML SYRINGE IM STA (01:56)
--- NOTE | 2024-08-28 02:01 | ED ---
Neck Injury/Pain HPI - General Chief Complaint: Neck Pain/Injury Stated Complaint: Neck Pain Time Seen by Provider: 08/28/24 01:16 Source: patient, RN notes reviewed Mode of arrival: ambulatory Limitations: no limitations - History of Present Illness Initial Comments: This is a 43-year-old male who presents to the emergency department for neck pain and headaches. Patient has a history of chronic back pain and chronic neck pain, but has been unable to see orthopedics due to insurance issues. States that for the last week in particular he has had a flareup of his chronic neck pain. Believes that he exacerbated this at work, causing a flareup. His posture is a way in which his head and neck are turned towards the left, which is an ongoing issue for him. States that the flareup of pain is causing him to be nauseous and is also radiating into his left shoulder, making it painful to use the arm. Denies any pain in his chest or shortness of breath. He has tried taking ibuprofen and Tylenol without any relief. MD Complaint: neck pain - Related Data Home Medications Medication Instructions Recorded Confirmed Pregabalin [Lyrica] 150 mg PO BID 05/05/24 05/05/24 Previous Rx's Medication Instructions Recorded Ketorolac [Toradol] 10 mg PO Q6HR PRN #20 tab 05/13/24 traMADol HCl [Ultram] 50 mg PO Q4HR PRN 3 Days #18 tab 05/13/24 Cyclobenzaprine [Flexeril] 5 mg PO TID PRN 7 Days #21 tablet 07/01/24 Lidocaine 5% Patch [Lidoderm 5% 1 patch TOPICAL DAILY PRN 14 Days 07/01/24 Patch] #14 patch Azithromycin [Zithromax] 500 mg PO DAILY #5 tab 08/13/24 Loratadine-Pseudoeph 10-240 mg 1 tab PO DAILY #30 tab 08/13/24 [Claritin-D 24 Hour] HYDROcodone/APAP 5-325MG [Moody 1 tab PO Q6HR PRN 3 Days #12 tab 08/28/24 5-325] Ketorolac [Toradol] 10 mg PO Q6HR PRN #15 tab 08/28/24 Orphenadrine [Norflex] 100 mg PO Q12H PRN #30 tab 08/28/24 Allergies Allergy/AdvReac Type Severity Reaction Status Date / Time Penicillins Allergy Rash/Hives Verified 08/28/24 01:15 Review of Systems ROS Statement: Those systems with pertinent positive or pertinent negative responses have been documented in the HPI. ROS Other: All systems not noted in ROS Statement are negative. Past Medical History Past Medical History: Pneumonia Additional Past Medical History / Comment(s): chronic back pain- worse after last tx. dextroscoliosis History of Any Multi-Drug Resistant Organisms: None Reported Past Surgical History: Orthopedic Surgery Additional Past Surgical History / Comment(s): RT KNEE SURG. PAIN CLINIC PROC. Past Anesthesia/Blood Transfusion Reactions: No Reported Reaction Past Psychological History: Anxiety Smoking Status: Former smoker Past Alcohol Use History: Rare Past Drug Use History: None Reported - Past Family History Mother Family Medical History: Liver Disease Additional Family Medical History / Comment(s): , liver failure from Hep C Father Family Medical History: Hypertension Additional Family Medical History / Comment(s): drinker General Exam Limitations: no limitations General appearance: alert, in no apparent distress Head exam: Present: atraumatic, normocephalic, normal inspection Eye exam: Present: normal appearance, PERRL, EOMI. Absent: scleral icterus, conjunctival injection, periorbital swelling Neck exam: Present: other (Tenderness to palpation over the bilateral cervical spine. Range of motion limited by pain.) Respiratory exam: Present: normal lung sounds bilaterally. Absent: respiratory distress, wheezes, rales, rhonchi, stridor Cardiovascular Exam: Present: regular rate, normal rhythm Extremities exam: Present: other (Tenderness to palpation over the left shoulder. Range of motion induces pain. 2+ radial pulses) Neurological exam: Present: alert, oriented X3, CN II-XII intact Psychiatric exam: Present: normal affect, normal mood Skin exam: Present: warm, dry, intact, normal color. Absent: rash Course Vital Signs 08/28/24 08/28/24 01:11 03:06 Temperature 98.3 F 98.3 F Pulse Rate 98 77 Respiratory 18 18 Rate Blood Pressure 154/100 138/64 O2 Sat by Pulse 100 99 Oximetry Medical Decision Making - Medical Decision Making This is a 43-year-old male who presents to the emergency department for neck pain. Was pt. sent in by a medical professional or institution? @ -No Did you speak to anyone other than the patient for history? @ -No Did you review nursing and triage notes? @ -Yes, and I agree, it is accurate with regards to the patient's symptoms. Were old charts reviewed? @ -No Differential Diagnosis? @ -Differential Neck Pain: Fracture, dislocation, contusion, strain, DDD, disc herniation, this is not meant to be an all-inclusive list. EKG interpreted by me (3pts min.)? @ -Not obtained X-rays interpreted by me (1pt min.)? @ -Not obtained CT interpreted by me (1pt min.)? @ -Not obtained U/S interpreted by me (1pt. min.)? @ -Not obtained What testing was considered but not performed? (CT, X-rays, U/S, labs)? Why? @ -None What meds were considered but not given? Why? @ -None Did you discuss the management of the patient with other professionals? @ -No Did you reconcile home meds? @ -No Was smoking cessation discussed for >3mins.? @ -I discussed smoking cessation for greater than 3 minutes. The risk of smoking were discussed with the patient including but not limited to risks of cancer, stroke, coronary artery disease and COPD. Also discussed with patient were multiple methods of quitting smoking. Lastly we discussed the financial cost of smoking. Was critical care preformed (if so, how long)? @ -No Were there social determinants of health that impacted care today? How? (Homelessness, low income, unemployed, alcoholism, drug addiction, transportation, low edu. Level, literacy, decrease access to med. care, senior living, rehab)? @ -No Was there de-escalation of care discussed even if they declined? (Discuss DNR or withdrawal of care, Hospice)? @ -No What co-morbidities impacted this encounter? (DM, HTN, Smoking, COPD, CAD, Cancer, CVA, Hep., AIDS, mental health diagnosis, sleep apnea, morbid obesity)? @ -Chronic back pain, chronic neck pain, smoking Was patient admitted / discharged? @ -Discharged. Patient reported an acute on chronic flareup of his neck pain related to activity at work. He had no new injuries or red flag signs or symptoms. Pain was treated in the emergency department. When discussing treatment after disposition, we discussed steroids which he advised cause insomnia and do not help with his symptoms. We then discussed muscle relaxers, and he feels like Flexeril is somewhat effective, more so than Robaxin. However, he felt like the Norflex he was given in the emergency department worked even better and did not make him drowsy. This was subsequently prescribed along with Toradol for pain control. Moody prescribed to be taken sparingly when his pain is the most severe. Otherwise advised to follow back up with orthopedics. Patient discharged home in stable condition. Case discussed with ED attending Dr. Spann. Return precautions reviewed in depth, the patient is instructed to return to the emergency department with any new, worsening, or concerning symptoms. Patient verbalized understanding. Undiagnosed new problem with uncertain prognosis? @ -None Drug Therapy requiring intensive monitoring for toxicity (Heparin, Nitro, Insulin, Cardizem)? @ -None Were any procedures done? @ -None Diagnosis/symptom? @ -Acute on chronic neck pain Acute, or Chronic, or Acute on Chronic? @ -Acute on chronic Uncomplicated (without systemic symptoms) or Complicated (systemic symptoms)? @ -Uncomplicated Side effects of treatment? @ -None Exacerbation, Progression, or Severe Exacerbation] @ -Exacerbation Poses a threat to life or bodily function? @ -The pain is limiting his ability to function to some extent Disposition Clinical Impression: Neck pain, Headache, Cervical radiculopathy, Nicotine dependence Disposition: HOME SELF-CARE Instructions (If sedation given, give patient instructions): Cervical Radiculopathy (ED), Chronic Neck Pain (DC) Additional Instructions: Return to the emergency department with any new, worsening, or concerning symptoms. Take the Toradol with Tylenol as needed for pain relief. If you choose to take the Toradol, do not take any other anti-inflammatories such as ibuprofen, take one or the other. Take the Norflex twice daily as needed for pain. Do not take this with any other muscle relaxers, take one or the other. Take the Moody sparingly when your pain is the most severe. Follow up with your primary care provider in 1-2 days. Prescriptions: HYDROcodone/APAP 5-325MG [Moody 5-325] 1 tab PO Q6HR PRN 3 Days #12 tab PRN Reason: Pain Orphenadrine [Norflex] 100 mg PO Q12H PRN #30 tab PRN Reason: Pain Ketorolac [Toradol] 10 mg PO Q6HR PRN #15 tab PRN Reason: Pain Is patient prescribed a controlled substance at d/c from ED?: Yes When asked, does pt state using other controlled substances?: No If prescribed controlled substance>3 days was MAPS reviewed?: Prescribed <3 Days Referrals: Laura Gonzalez MD [Primary Care Provider] - 1-2 days Time of Disposition: 02:58
[2024-08-28] MEDS: HYDROmorphone 1 MG/ML 1 ML SYRINGE IM STA (02:44)
[2024-08-28] MEDS: ONDANSETRON 4 MG ODT STARTER PACK 2 TAB BTL PO STA (03:04)
[2024-08-28] MEDS: ACET/COD 300 MG/30 MG STARTER PACK 6 TAB BTL PO STA (03:05)
[2024-08-28 03:08] VITALS: BP 138/64; PULSE 77
== END 2024-08-28 03:07 | disposition home or self-care (01) ==
LOC: EC 00:53
DX: M54.2 Cervicalgia (principal); R51.9 Headache, unspecified; M54.12 Radiculopathy, cervical region; M54.9 Dorsalgia, unspecified; G89.29 Other chronic pain; Z87.891 Personal history of nicotine dependence; Z88.0 Allergy status to penicillin
CPT/HCPCS: 99283; 96372; J2270; J1100; J2360; J1171; J1885; S0119

== ENCOUNTER 2024-10-27 16:44 | Emergency (ER) | payer BC, OTHER ==
[2024-10-27 16:50] VITALS: RESP 18
[2024-10-27] MEDS: KETOROLAC 15 MG/ML 1 ML VIAL IM STA (17:04)
[2024-10-27] MEDS: ORPHENADRINE 30 MG/ML 2 ML VIAL IM STA (17:05)
[2024-10-27] MEDS: traMADol 50 MG STARTER PACK TAB BTL PO STA (17:05)
--- NOTE | 2024-10-27 17:06 | ED ---
Back Pain HPI - General Chief Complaint: Back Pain/Injury Stated Complaint: Lower back pain Time Seen by Provider: 10/27/24 16:47 Source: patient, RN notes reviewed Limitations: no limitations - History of Present Illness Initial Comments: 43-year-old male presents emergency department complaint of low back pain. Patient states that he has chronic back issues that he said increasing twisting bending over this last week. He has pain rating down into his legs he denies any bowel, bladder and cons retention he states he recently found out he has hep C. Patient states he is unsure how he contracted this. Patient also states he was placed back on low-dose gabapentin. Patient denies abdominal pain denies any dysuria no other complaints. - Related Data Home Medications Medication Instructions Recorded Confirmed Pregabalin [Lyrica] 150 mg PO BID 05/05/24 05/05/24 Previous Rx's Medication Instructions Recorded Ketorolac [Toradol] 10 mg PO Q6HR PRN #20 tab 05/13/24 traMADol HCl [Ultram] 50 mg PO Q4HR PRN 3 Days #18 tab 05/13/24 Cyclobenzaprine [Flexeril] 5 mg PO TID PRN 7 Days #21 tablet 07/01/24 Lidocaine 5% Patch [Lidoderm 5% 1 patch TOPICAL DAILY PRN 14 Days 07/01/24 Patch] #14 patch Azithromycin [Zithromax] 500 mg PO DAILY #5 tab 08/13/24 Loratadine-Pseudoeph 10-240 mg 1 tab PO DAILY #30 tab 08/13/24 [Claritin-D 24 Hour] HYDROcodone/APAP 5-325MG [[place] 1 tab PO Q6HR PRN 3 Days #12 tab 08/28/24 5-325] Ketorolac [Toradol] 10 mg PO Q6HR PRN #15 tab 08/28/24 Orphenadrine [Norflex] 100 mg PO Q12H PRN #30 tab 08/28/24 methocarbamoL [Robaxin] 500 mg PO TID PRN #15 tab 10/27/24 predniSONE 50 mg PO DAILY #5 tab 10/27/24 Allergies Allergy/AdvReac Type Severity Reaction Status Date / Time Penicillins Allergy Rash/Hives Verified 10/27/24 16:46 Review of Systems ROS Statement: Those systems with pertinent positive or pertinent negative responses have been documented in the HPI. ROS Other: All systems not noted in ROS Statement are negative. Past Medical History Past Medical History: Pneumonia Additional Past Medical History / Comment(s): chronic back pain- worse after last tx. dextroscoliosis History of Any Multi-Drug Resistant Organisms: None Reported Past Surgical History: Orthopedic Surgery Additional Past Surgical History / Comment(s): RT KNEE SURG. PAIN CLINIC PROC. Past Anesthesia/Blood Transfusion Reactions: No Reported Reaction Past Psychological History: Anxiety Smoking Status: Current every day smoker Past Alcohol Use History: Rare Past Drug Use History: None Reported - Past Family History Mother Family Medical History: Liver Disease Additional Family Medical History / Comment(s): , liver failure from Hep C Father Family Medical History: Hypertension Additional Family Medical History / Comment(s): drinker General Exam Limitations: no limitations General appearance: alert, in no apparent distress Head exam: Present: atraumatic, normocephalic, normal inspection Eye exam: Present: normal appearance, PERRL, EOMI. Absent: scleral icterus, conjunctival injection, periorbital swelling ENT exam: Present: normal exam, normal oropharynx, mucous membranes moist Neck exam: Present: normal inspection, full ROM. Absent: tenderness, meningismus, lymphadenopathy Respiratory exam: Present: normal lung sounds bilaterally. Absent: respiratory distress, wheezes, rales, rhonchi, stridor Cardiovascular Exam: Present: regular rate, normal rhythm, normal heart sounds. Absent: systolic murmur, diastolic murmur, rubs, gallop, clicks GI/Abdominal exam: Present: soft, normal bowel sounds. Absent: distended, tenderness, guarding, rebound, rigid Extremities exam: Present: normal inspection, full ROM, normal capillary refill. Absent: tenderness, pedal edema, joint swelling, calf tenderness Back exam: Present: full ROM, tenderness, muscle spasm, paraspinal tenderness. Absent: vertebral tenderness Course Vital Signs 10/27/24 16:46 Temperature 98.4 F Pulse Rate 107 H Respiratory 18 Rate Blood Pressure 133/91 O2 Sat by Pulse 100 Oximetry Medical Decision Making - Medical Decision Making Was pt. sent in by a medical professional or institution (, PA, MOTOR MAN, urgent care, hospital, or [facility]...) When possible be specific @ -No Did you speak to anyone other than the patient for history (EMS, parent, family, police, friend...)? What history was obtained from this source @ -No Did you review nursing and triage notes (agree or disagree)? Why? @ -I reviewed and agree with nursing and triage notes Were old charts reviewed (outside hosp., previous admission, EMS record, old EKG, old radiological studies, urgent care reports/EKG's, [facility] records)? Report findings @ -No old charts were reviewed Differential Diagnosis (chest pain, altered mental status, abdominal pain women, abdominal pain men, vaginal bleeding, weakness, fever, dyspnea, syncope, headache, dizziness, GI bleed, back pain, seizure, CVA, palpatations, mental health, musculoskeletal)? @ -Differential Back Pain: Strain, zoster, cauda equina syndrome, epidural abscess, vertebral osteomyelitis, discitis, fracture, subluxation, disc herniation, DJD, spinal stenosis, dissection, AAA, pancreatitis, peptic ulcer disease, pyelonephritis, kidney stone, this is not meant to be an all-inclusive list. EKG interpreted by me (3pts min.). @ -None X-rays interpreted by me (1pt min.). @ -None done CT interpreted by me (1pt min.). @ -None done U/S interpreted by me (1pt. min.). @ -None done What testing was considered but not performed or refused? (CT, X-rays, U/S, labs)? Why? @ -None What meds were considered but not given or refused? Why? @ -None Did you discuss the management of the patient with other professionals (professionals i.e. , PA, MOTOR MAN, lab, RT, psych nurse, psychiatric social worker supervisor, fashion model, teacher, project officer, high risk case manager)? Give summary @ -No Was smoking cessation discussed for >3mins.? @ -No Was critical care preformed (if so, how long)? @ -No Were there social determinants of health that impacted care today? How? (Homelessness, low income, unemployed, alcoholism, drug addiction, transportation, low edu. Level, literacy, decrease access to med. care, custodial, rehab)? @ -No Was there de-escalation of care discussed even if they declined (Discuss DNR or withdrawal of care, Hospice)? DNR status @ -No What co-morbidities impacted this encounter? (DM, HTN, Smoking, COPD, CAD, Cancer, CVA, ARF, Chemo, Hep., AIDS, mental health diagnosis, sleep apnea, morbid obesity)? @ -None Was patient admitted / discharged? Hospital course, mention meds given and route, prescriptions, significant lab abnormalities, going to OR and other pertinent info. @ -Discharge patient has acute exacerbation of chronic back pain patient has no red flag symptoms. Patient ambulating without difficulty will be discharged in stable condition. Undiagnosed new problem with uncertain prognosis? @ -No Drug Therapy requiring intensive monitoring for toxicity (Heparin, Nitro, Insulin, Cardizem)? @ -No Were any procedures done? @ -No Diagnosis/symptom? @ -Lumbar back pain Acute, or Chronic, or Acute on Chronic? @ -Acute on chronic Uncomplicated (without systemic symptoms) or Complicated (systemic symptoms)? @ -Uncomplicated Side effects of treatment? @ -No Exacerbation, Progression, or Severe Exacerbation? @ -No Poses a threat to life or bodily function? How? (Chest pain, [place], [place], pneumonia, PE, COPD, DKA, ARF, appy, cholecystitis, CVA, Diverticulitis, Homicidal, Suicidal, threat to staff... and all critical care pts) @ -No Disposition Clinical Impression: Acute on chronic low back pain Disposition: HOME SELF-CARE Condition: Stable Instructions (If sedation given, give patient instructions): Acute Low Back Pain (ED) Additional Instructions: Please return to the Emergency Department if symptoms worsen or any other concerns. Prescriptions: predniSONE 50 mg PO DAILY #5 tab methocarbamoL [Robaxin] 500 mg PO TID PRN #15 tab PRN Reason: muscle spasms Is patient prescribed a controlled substance at d/c from ED?: No Referrals: Soheila Santacruz DO [Primary Care Provider] - 1-2 days Time of Disposition: 17:06
[2024-10-27 17:19] VITALS: BP 145/89; PULSE 98; TEMP 98
== END 2024-10-27 18:02 | disposition home or self-care (01) ==
LOC: EC 16:44
DX: M54.50 Low back pain, unspecified (principal); G89.29 Other chronic pain; F17.200 Nicotine dependence, unspecified, uncomplicated; Z88.0 Allergy status to penicillin
CPT/HCPCS: 99283; 96372; J2360; J1885